=== PATIENT | female | born 1935 | race Caucasian/White ===

== ENCOUNTER → 2016-09-07 | Day surgery (SDC) | payer OTHER, MEDICARE ==
[2016-08-12 08:28] VITALS: Ht 160 cm; Wt 98.6 kg
[~2016-09-07] VITALS: Ht 160 cm; Wt 98.6 kg
[~2016-09-07] MED LIST: 500ML BSS 0.3ML EPI 1:1000PF IRRIG ONE; ACETAMINOPHEN 325 MG TAB PO PRN; ADVIN25/60 INH; ALLO100T PO; AMVISC PLUS 0.8ML SYRINGE INT OCU ONE; ATROPINE SULFATE 0.1 MG/ML 5ML SYR IV PRN; BETAXOLOL HCL 0.25% OP SUSP PER DROP CHARGE OPR SCH; BRIMONIDINE TART 0.2% OP SOLN PER DROP CHARGE ONE; BSS FLUSH ONE; CHOL100010 PO; CYAN10005 PO; DILT30TA PO; ENDOCOAT 0.85ML SYRINGE INT OCU ONE; EpINEphrine INJ 1MG/ML AMP 1 MG/ML AMP ONE; FENTANYL CITRATE INJ 50 MCG/1 ML 2 ML VIAL ONE; LACTATED RINGER'S 1000ML 500 ML IV SCH; LIDOCAINE 4% OP SOLN DROP CHARGE ONE; LIDOCAINE 4% OP SOLN DROP CHARGE OPR SCH; LIDOCAINE HCL 1% MPF 2 ML VIAL ONE; LSX20 PO; METO25TA56 PO; MIDAZOLAM HCL 1 MG/ML 2ML VIAL ONE; MIX: 4ML BSS 1ML EPI 1:1000 PF INSTIL ONE; MOXIFLOXACIN OPH SOLN PER DROP CHARGE ONE; OCUCOAT 1 ML SOLN IO ONE; POVIDONE-IODINE OP SOLN 30 ML BTL ONE; PROPARACAINE 0.5% OP SOLN PER DROP CHARGE OPR SCH; SIMV20TA2 PO; TOBRAMYCIN/DEXAMETHASONE OPH OINT PER APPLN CHARGE ONE; WARF2TAB8 PO
--- NOTE | 2016-09-07 06:39 | History & Physical Bridge - [place] ---
H&P Re-Evaluation Bridge Note: I have examined the patient, reviewed the History & Physical and in the interval since the performance of the History & Physical I have noted the following changes of clinical significance: No changes noted
[2016-09-07] MEDS: PHENYLEPHRINE HCL 2.5% OP SOLN PER DROP CHARGE OPR SCH ×2 (06:46→06:56)
[2016-09-07] MEDS: TROPICAMIDE 1% OP SOLN PER DROP CHARGE OPR SCH ×2 (06:47→06:56)
[2016-09-07] MEDS: CYCLOPENTOLATE HCL 1% OP SOLN PER DROP CHARGE OPR SCH ×2 (06:48→06:58)
[2016-09-07] MEDS: MOXIFLOXACIN OPH SOLN PER DROP CHARGE OPR SCH ×2 (06:49→07:00)
--- NOTE | 2016-09-07 07:57 | Discharge Instructions-SurgCtr ---
Discharge Instructions Visit Reason for Visit: Right Cataract Discharge Discharge Diagnosis / Problem: Lens implant right eye Discharge Goals Goal(s): Improve function Activity Recommendations Activity Limitations: resume your previous activity Lifting Limitations: no more than 10 pounds Exercise/Sports Limitations: gradually increase as tolerated May Resume Sexual Activity: when tolerated Shower/Bathe: tomorrow Driving or Machine Use: resume 1 day after discharge Anesthesia . Post Anesthesia Instructions: If you have had General Anesthesia or IV Sedation: * Do not drive today. * Resume driving when surgeon permits. * Do not make important decisions or sign legal documents today. * Call surgeon for: 1. Temperature elevations greater than 101 degrees F. 2. Uncontrollable pain. 3. Excessive bleeding. 4. Persistent nausea and vomiting. 5. Medication intolerance (nausea, vomiting or rash). * For nausea and vomiting use only clear liquids such as: tea, soda, bouillon until nausea subsides, then gradually increase diet as tolerated. * If you have any concerns or questions, call your surgeon's office. If physician is unavailable and it is an emergency, call 911 or go to the nearest emergency room. . Instructions / Follow-Up Instructions / Follow-Up ACTIVITY RECOMMENDATIONS: * Light activities. * Mild irritation and blurred vision are common for the first few days. * You may walk outside, read, watch television. * Redness around the white part of the eye is common. MEDICATIONS: Resume previous medications unless instructed otherwise by your surgeon. Start all eye drops at 1 pm today: * Eye drops (today and tomorrow): Prednisone - one drop in operative eye every 3 hours while awake Ofloxacin - one drop in operative eye every 3 hours while awake SPECIAL CARE INSTRUCTIONS: * Tape plastic shield over eye to sleep at night. Call your doctor at with any concerns or problems. FOLLOW UP VISIT: Follow-up with Dr Og at [place] office as scheduled. Diet Recommendations Home Diet: no limitations Procedures Procedures Performed: Cataract extraction with lens implant Pending Studies Studies pending at discharge: no Medical Emergencies . Who to Call and When: Medical Emergencies: If at any time you feel your situation is an emergency, please call 911 immediately. . Non-Emergent Contact Non-Emergency issues call your: [facility] Call Non-Emergent contact if: your pain is not controlled [phone] . . "Provider Documentation" section prepared by Asher Og.
--- NOTE | 2016-09-07 07:59 | [facility] Operative Report ---
Operative Report 1. PREOPERATIVE DIAGNOSIS: Senile nuclear cataract, right eye. 2. POSTOPERATIVE DIAGNOSIS: Senile nuclear cataract, right eye. 3. PROCEDURE: Phacoemulsification of right cataract with posterior chamber lens implant, type [employer], model MX60, power +15.5 diopters. ANESTHESIA: Local standby. SURGEON: Dr. Og. COMPLICATIONS: None. OPERATING TIME: 10 minutes. 4. OPERATION AND FINDINGS: DESCRIPTION OF PROCEDURE: The right pupil was dilated. The anesthetic was administered using a topical technique. The right eye was prepped and draped. A speculum was placed. A clear corneal incision was formed. The chamber was filled with Amvisc Plus and Endocoat. Epinephrine solution was used. A paracentesis was placed. A capsulorrhexis was performed. The nucleus was hydrodissected. The lens was removed with phacoemulsification. Time was 4.25 seconds. The aspiration unit was used to remove the cortex. The capsule was filled with Amvisc Plus. The lens implant was folded and placed into the capsule. The haptec was broken. The lens implant was removed and replaced. The incision was hydrated. The Amvisc was aspirated. The wound was secure. The chamber was deep. The pupil was round. TobraDex ointment and Vigamox solution were placed. The speculum was removed. The patient was returned to the Recovery Room in stable condition. I attest to the content of the Intraoperative Record and any orders documented therein. Any exceptions are noted below. The scribe's documentation has been prepared in my presence, under my direction and personally reviewed by me in its entirety. I confirm that the note above accurately reflects all work, treatment, procedures, and medical decision making performed by me. I personally scribed for Asher Og M.D. ([email or web address]) on 09/07/16 at 07:59. Electronically submitted by Jenny Cano ([facility]).
[2016-09-07 08:10] VITALS: TEMP 36.4
[2016-09-07 08:34] VITALS: BP 127/74; PULSE 63; O2SAT 94
--- NOTE | 2016-09-07 08:35 | Anesthesia Progress Nt - [facility] ---
Anesthesia Post Op Note Date & Time Sep 07, 2016 at 08:34 Vital Signs Pain Intensity: 0 Vital Signs Past 12 Hours Date Time Temp Pulse Resp B/P Pulse Ox O2 Delivery O2 Flow Rate FiO2 09/07/16 08:10 36.4 62 14 119/68 92 Room Air 09/07/16 06:31 36.7 79 16 138/82 95 Room Air Notes Mental Status: alert / awake / arousable, participated in evaluation Pt Amnestic to Procedure: Yes Nausea / Vomiting: adequately controlled Pain: adequately controlled Airway Patency, RR, SpO2: stable & adequate BP & HR: stable & adequate Hydration State: stable & adequate Anesthetic Complications: no major complications apparent
== END | disposition home or self-care (01) ==
LOC: X.SURG 06:25
PROVIDERS: ATTEND Specialist
DX: H25.11 Age-related nuclear cataract, right eye (principal); I10 Essential (primary) hypertension; I51.9 Heart disease, unspecified; J45.909 Unspecified asthma, uncomplicated

== ENCOUNTER 2021-03-20 19:39 | Inpatient (IN) ==
[2021-03-20] MEDS ORDERED: ONDANSETRON INJ 2 MG/ML 2 ML VIAL IV STA (19:51)
[2021-03-20] MEDS ORDERED: SODIUM CHLORIDE 0.9% 500 ML IV ONE (19:51)
[2021-03-20] MEDS ORDERED: MECLIZINE HCL 25 MG TAB PO STA (19:51)
[2021-03-20 20:17] LABS: Basophils # (auto) 0.02 K/uL (0-0.2); Basophils % (auto) 0.3 %; Eosinophils # (auto) 0.11 K/uL (0-0.5); Eosinophils % (auto) 1.5 %; Hematocrit (blood only) 50.3 % (37-47); Hemoglobin 17.1 g/dL (12.0-16.0); Immature Granulocytes # (auto) 0.01 K/uL (0.00-0.02); Immature Granulocytes % (auto) 0.1 %; Lymphocytes # (auto) 1.39 K/uL (1.2-3.4); Lymphocytes % (auto) 18.8 %; Mean Platelet Volume 10.3 fL (7.4-10.4); Monocytes # (auto) 0.86 K/uL (0.11-0.59); Monocytes % (auto) 11.6 %; Neutrophils # (auto) 5.01 K/uL (1.4-6.5); Neutrophils % (auto) 67.7 %; Platelet Count 180 K/uL (130-400); RDW Coefficient of Variation 14.8 % (11.5-14.5); Red Blood Count 5.35 M/uL (4.2-5.4)
--- NOTE | 2021-03-20 21:12 | XRay Report ---
XR chest 1V portable HISTORY: 85 years-old Female Stroke Like Symptoms acute strokelike symptoms COMPARISON: Chest radiograph 10/31/2008 TECHNIQUE: Portable AP view of the chest FINDINGS: Cardiac silhouette is enlarged. Calcified plaque of the thoracic aorta. No pneumothorax, pleural effu dario or overt pulmonary edema. Minimal retrocardiac opacities suggestive of atelectasis/scarring. Deg enerative changes of the shoulders and spine. IMPRESSION: Cardiomegaly without acute process. ACT 112: Negative or not required by law. The above report was generated using voice recognition software. It may contain grammatical, syntax o r spelling errors. Electronically signed by: Eliseo Ortega M.D. 03/20/2021 9:11 PM
[2021-03-20 21:42] LABS: INR 3.3 (0.9-1.1); Partial Thromboplastin Ratio 1.5; Partial Thromboplastin Time 39.3 Seconds (21.0-31.0); Prothrombin Time 30.5 Seconds (9.0-12.0)
[2021-03-20 21:56] LABS: Alanine Aminotransferase 20 U/L (12-78); Albumin Globulin Ratio 0.9 (0.9-2); Albumin Level 3.2 gm/dl (3.4-5.0); Alkaline Phosphatase 118 U/L (45-117); Aspartate Aminotransferase 22 U/L (15-37); BUN Creatinine Ratio 23.6 (10-20); Bilirubin,Total 0.6 mg/dl (0.2-1); Blood Urea Nitrogen 25 mg/dl (7-18); Calcium 8.5 mg/dl (8.5-10.1); Carbon Dioxide 24 mmol/L (21-32); Chloride 109 mmol/L (98-107); Creatinine Clr Calc Pharmacy 38.1 ml/min; Est GFR (African American) 55.3 ml/min; Est GFR (Non-African American) 47.7 ml/min; Globulin 3.6 gm/dl (2.5-4.0); Glucose 105 mg/dl (70-99); Magnesium 2.3 mg/dl (1.8-2.4); Potassium 4.2 mmol/L (3.5-5.1); Sodium 138 mmol/L (136-145); Total Protein 6.8 gm/dl (6.4-8.2); Troponin I < 0.015 ng/ml (0-0.045)
[2021-03-20] MEDS ORDERED: OPTIRAY 320 125ml IV ONE (21:58)
--- NOTE | 2021-03-20 22:24 | CT Scan Report ---
CT head/brain wo con CLINICAL HISTORY: 85 years-old Female with Stroke Like Symptoms. Acute strokelike symptoms TECHNIQUE: Multiple axial CT images of the head were obtained without contrast. A dose lowering tech nique was utilized adhering to the principles of ALARA. COMPARISON: CTA head and neck of same day FINDINGS: No acute intracranial hemorrhage, midline shift, intracranial mass, hydrocephalus, territorial ischem ia or abnormal extra-axial collection. Mild involutional changes. Cerebral vascular calcifications. The calvarium is intact. Right-sided lens repair. The paranasal sinuses, mastoid air cells, and middl e ear cavities are clear. IMPRESSION: No acute intracranial abnormality. ACT 112: Negative or not required by law. The above report was generated using voice recognition software. It may contain grammatical, syntax o r spelling errors. Electronically signed by: Eliseo Ortega M.D. 03/20/2021 10:23 PM
--- NOTE | 2021-03-20 22:33 | CT Scan Report ---
CT angio neck with con, CT angio head w con CLINICAL HISTORY: 85 years-old Female with Stroke Like Symptoms. Acute strokelike symptoms COMPARISON STUDY: CT head of same day TECHNIQUE: Following the IV administration of 119 mL of Optiray, CT angiogram of the head and neck wa s performed from the aortic arch to the skull apex. Images are reviewed in the axial, sagittal, and c oronal planes. 3-D MIPS images are created and assessed. IV contrast was administered without complic ation. All measurements were calculated based on NASCET criteria. A dose lowering technique was util ized adhering to the principles of ALARA. CT DOSE: 1008.22 mGy.cm FINDINGS: The opacified pulmonary arterial tree is unremarkable. Mild atherosclerosis of the proximal great ves sels. Patency of the innominate and imaged subclavian arteries. The common carotid arteries are widel y patent. The internal carotid arteries are also patent. Mild calcified plaque of the cavernous and s upraclinoid segments. The middle and anterior cerebral arteries are patent. Dominant right vertebral artery. Developmentally diminutive left vertebral artery terminates into the left PICA. Diminutive an d patent basilar artery. origin of the posterior cerebral arteries which are patent. The cerebr al venous sinuses appear patent. No abnormal intracranial enhancement. The lung apices are clear. No pneumothorax. Degenerative changes of the cervical spine. IMPRESSION:Unremarkable CTA of the head and neck. ACT 112: Negative or not required by law. The above report was generated using voice recognition software. It may contain grammatical, syntax o r spelling errors. Electronically signed by: Eliseo Ortega M.D. 03/20/2021 10:32 PM
[2021-03-20 22:39] LABS: Appearance Urine Clear (Clear); Bilirubin Urine Negative (Negative); Blood Urine Negative (Negative); Color Urine Yellow; Glucose Urine UA Negative (Negative); Ketones Urine Negative (Negative); Leukocyte Esterase Urine Negative (Negative); Nitrite Urine Negative (Negative); Protein Urine Negative (Negative); Specific Gravity Urine 1.024 (1.000-1.030); Urobilinogen Urine Negative (Negative)
[2021-03-20] MEDS ORDERED: dilTIAZem HCL 30 MG TAB PO ONE (23:35)
--- NOTE | 2021-03-20 23:51 | History & Physical Report ---
Date of Service March 20, 2021 Assessment & Plan (1) Dizziness: Plan: 85 yo admitted for dizziness/ambulatory dysfunction. 1. Dizziness - most likely BPPV. Did positively respond to having Fly's Maneuver performed in ER. Said it brought her to ~50% normal, but still felt somewhat unsteady and didn't "trust" herself to not fall or be dizzy when standing. She lives alone and didn't feel comfortable going home at nighttime. - meclizine somewhat helped with dizziness - received 500cc NS in ER - continue meclizine PRN, zofran added for nausea - EKG to monitor QTc - CT head/CTA head/neck negative for stroke/edema/carotid stenosis causing symptoms. given position dependent symptoms, unlikely to be stroke etiology. Chronic problems: Afib - cont metoprolol, diltiazem, warfarin CAD - cont statin Gout - cont allopurinol DVT ppx: on warfarin FEN/GI: heart healthy diet Bowel regimen: miralax prn Code Status: full code Dispo: med/surg (2) Afib: (3) HTN (hypertension): (4) CAD (coronary artery disease): (5) Gout: History of Present Illness Chief Complaint: Dizziness Primary Care Provider: Eric Rosa MD 85 yo F with hx afib and htn in ER for dizziness for the past few days. States that she's had a handful of episodes while standing, but this morning woke up being dizzy and was unable to lift herself retirement up to sitting without being dizzy. States that the room is spinning around her. No nausea, but some generalized discomfort. does state that she hasn't been drinking or eating as much as she should the past few days with it being so hot. Hasn't had her night dose of diltiazem tonight, otherwise has taken all of her medications. No numbness/tingling. No weakness. No speech changes or slurring. No chest pain/SOB. Allergies Allergy/AdvReac Type Severity Reaction Status Date / Time Sulfa (Sulfonamide Allergy Intermediate RASH/GI Verified 03/20/21 20:38 Antibiotics) UPSET mercury (elemental) Allergy Mild RASH Verified 03/20/21 20:38 Penicillins Allergy Mild RASH Verified 03/20/21 20:38 hydromorphone AdvReac Intermediate ACTED Verified 03/20/21 20:38 STRANGE NSAIDS (Non-Steroidal AdvReac Intermediate INTERNAL Verified 03/20/21 20:38 Anti-Inflamma BLEEDING Home Medications Medication Instructions Recorded Confirmed Type albuterol sulfate 90 mcg/actuation 2 puff INHALATION QID PRN 03/20/21 03/20/21 History aerosol inhaler allopurinol 100 mg tablet 100 mg PO DAILY 03/20/21 03/20/21 History cholecalciferol (vitamin D3) 25 25 mcg PO DAILY 03/20/21 03/20/21 History mcg (1,000 unit) capsule (Vitamin D3) cyanocobalamin (vitamin B-12) 1,000 mcg PO DAILY 03/20/21 03/20/21 History 1,000 mcg tablet (Vitamin B-12) diltiazem HCl 30 mg tablet 30 mg PO QID 03/20/21 03/20/21 History metoprolol tartrate 25 mg tablet 25 mg PO BID 03/20/21 03/20/21 History simvastatin 20 mg tablet 20 mg PO QPM 03/20/21 03/20/21 History warfarin 2 mg tablet See Rx Instructions .ROUTE .COMPLEX 03/20/21 03/20/21 Hist ory Past Med/Surg History Medical History Afib CAD (coronary artery disease) Gout HTN (hypertension) Social History (System 08/12/19 @ 11:50 by Eileen Rosen) Smoking Status: Never smoker Hx Alcohol Use: No Hx Substance Use: No Preferred Language: Chinese Communication Ability: Effective Field Scout Required: No Beliefs That Will Affect Care: None Current Living Situation: Alone Other Information That Helps Us Care for You: No Feels Safe at Home: Yes Safety Concerns: Feels Safe At This Time Assistive Devices: Cane and Glasses Review of Systems Review of Systems: All systems reviewed & are unremarkable except as noted in HPI & below Physical Exam Physical Exam: Constitutional:elderly female in no apparent distress,laying comfortably in bed. Eyes: EOMI, pupils equal and reactive bilaterally, no scleral icterus Cardiac: irregularly irregular, normal rate, no murmurs, gallops or rubs. Normal S1, S2 Pulm: CTA BL, no wheezes, rhonchi, crackles or rubs, moving air well throughout both lungs Abd: soft, nontender, nondistended, normal bowel sounds, no rebound or guarding Extremities: 2+ peripheral pulses, no edema Neuro: no focal deficits, moving all 4 limbs, A&Ox3 Results & Data Results & Data ([facility]) Vital Signs (Past 12 Hours) Vital Signs Temp Pulse Resp BP Pulse Ox 03/20/21 23:00 80 17 142/90 H 94 03/20/21 22:30 80 16 157/83 H 94 03/20/21 22:00 86 18 132/78 94 03/20/21 21:30 81 17 137/81 98 03/20/21 21:00 78 16 135/88 98 03/20/21 20:30 78 22 151/95 H 98 03/20/21 20:00 90 18 152/109 H 98 03/20/21 19:51 36.7 C 89 16 171/112 H 94 Laboratory Results Laboratory Results WBC 7.40 K/uL (4.8-10.8) 03/20/21 20:05 RBC 5.35 M/uL (4.2-5.4) 03/20/21 20:05 Hgb 17.1 g/dL (12.0-16.0) H 03/20/21 20:05 Hct 50.3 % (37-47) H 03/20/21 20:05 MCV 94.0 fL (80-100) 03/20/21 20:05 MCH 32.0 pg (25-34) 03/20/21 20:05 MCHC 34.0 g/dL (32-36) 03/20/21 20:05 RDW Std Deviation 51.0 fL (36.4-46.3) H 03/20/21 20:05 RDW Coeff of [place] 14.8 % (11.5-14.5) H 03/20/21 20:05 Plt Count 180 K/uL (130-400) 03/20/21 20:05 MPV 10.3 fL (7.4-10.4) 03/20/21 20:05 Immature Gran % (Auto) 0.1 % 03/20/21 20:05 Neut % (Auto) 67.7 % 03/20/21 20:05 Lymph % (Auto) 18.8 % 03/20/21 20:05 [place] % (Auto) 11.6 % 03/20/21 20:05 Eos % (Auto) 1.5 % 03/20/21 20:05 Baso % (Auto) 0.3 % 03/20/21 20:05 Neut # (Auto) 5.01 K/uL (1.4-6.5) 03/20/21 20:05 Lymph # (Auto) 1.39 K/uL (1.2-3.4) 03/20/21 20:05 [place] # (Auto) 0.86 K/uL (0.11-0.59) H 03/20/21 20:05 Eos # (Auto) 0.11 K/uL (0-0.5) 03/20/21 20:05 Baso # (Auto) 0.02 K/uL (0-0.2) 03/20/21 20:05 Immature Gran # (Auto) 0.01 K/uL (0.00-0.02) 03/20/21 20:05 PT 30.5 Seconds (9.0-12.0) H 03/20/21 21:20 INR 3.3 (0.9-1.1) H 03/20/21 21:20 APTT 39.3 Seconds (21.0-31.0) H 03/20/21 21:20 PTT Ratio 1.5 03/20/21 21:20 Sodium 138 mmol/L (136-145) 03/20/21 21:20 Potassium 4.2 mmol/L (3.5-5.1) 03/20/21 21:20 Chloride 109 mmol/L (98-107) H 03/20/21 21:20 Carbon Dioxide 24 mmol/L (21-32) 03/20/21 21:20 Anion Gap 6.0 (3-11) 03/20/21 21:20 BUN 25 mg/dl (7-18) H 03/20/21 21:20 Creatinine 1.05 mg/dl (0.6-1.2) 03/20/21 21:20 Est Cr Clr Drug Dosing 38.1 ml/min 03/20/21 21:20 Est GFR ( Amer) 55.3 ml/min 03/20/21 21:20 Est GFR (Non-Af Amer) 47.7 ml/min 03/20/21 21:20 BUN/Creatinine Ratio 23.6 (10-20) H 03/20/21 21:20 Glucose 105 mg/dl (70-99) H 03/20/21 21:20 Calcium 8.5 mg/dl (8.5-10.1) 03/20/21 21:20 Magnesium 2.3 mg/dl (1.8-2.4) 03/20/21 21:20 Total Bilirubin 0.6 mg/dl (0.2-1) 03/20/21 21:20 AST 22 U/L (15-37) 03/20/21 21:20 ALT 20 U/L (12-78) 03/20/21 21:20 Alkaline Phosphatase 118 U/L (45-117) H 03/20/21 21:20 Troponin I < 0.015 ng/ml (0-0.045) 03/20/21 21:20 Total Protein 6.8 gm/dl (6.4-8.2) 03/20/21 21:20 Albumin 3.2 gm/dl (3.4-5.0) L 03/20/21 21:20 Globulin 3.6 gm/dl (2.5-4.0) 03/20/21 21:20 Albumin/Globulin Ratio 0.9 (0.9-2) 03/20/21 21:20 Specimen Hemolysis 03/20/21 21:20 Urine Color Yellow 03/20/21 22:25 Urine Appearance Clear (Clear) 03/20/21 22:25 Urine pH 5.0 (4.5-7.5) 03/20/21 22:25 Ur Specific [place] 1.024 (1.000-1.030) 03/20/21 22:25 Urine Protein Negative (Negative) 03/20/21 22:25 Urine Glucose (UA) Negative (Negative) 03/20/21 22:25 Urine Ketones Negative (Negative) 03/20/21 22:25 Urine Blood Negative (Negative) 03/20/21 22:25 Urine Nitrite Negative (Negative) 03/20/21 22:25 Urine Bilirubin Negative (Negative) 03/20/21 22:25 Urine Urobilinogen Negative (Negative) 03/20/21 22:25 Ur Leukocyte Esterase Negative (Negative) 03/20/21 22:25 Impressions Chest X-Ray 03/20/21 19:51 XR chest 1V portable HISTORY: 85 years-old Female Stroke Like Symptoms acute strokelike symptoms COMPARISON: Chest radiograph 10/31/2008 TECHNIQUE: Portable AP view of the chest FINDINGS: Cardiac silhouette is enlarged. Calcified plaque of the thoracic aorta. No pneumothorax, pleural effusion or overt pulmonary edema. Minimal retrocardiac opacities suggestive of atelectasis/scarring. Degenerative changes of the shoulders and spine. IMPRESSION: Cardiomegaly without acute process. ACT 112: Negative or not required by law. The above report was generated using voice recognition software. It may contain grammatical, syntax or spelling errors. Electronically signed by: Eliseo Ortega M.D. 03/20/2021 9:[address] 03/20/21 19:51 CT head/brain wo con CLINICAL HISTORY: 85 years-old Female with Stroke Like Symptoms. Acute strokelike symptoms TECHNIQUE: Multiple axial CT images of the head were obtained without contrast. A dose lowering technique was utilized adhering to the principles of ALARA. COMPARISON: CTA head and neck of same day FINDINGS: No acute intracranial hemorrhage, midline shift, intracranial mass, hydrocephalus, territorial ischemia or abnormal extra-axial collection. Mild involutional changes. Cerebral vascular calcifications. The calvarium is intact. Right-sided lens repair. The paranasal sinuses, mastoid air cells, and middle ear cavities are clear. IMPRESSION: No acute intracranial abnormality. ACT 112: Negative or not required by law. The above report was generated using voice recognition software. It may contain grammatical, syntax or spelling errors. Electronically signed by: Eliseo Ortega M.D. 03/20/2021 10:23 PM Head CTA 03/20/21 19:51 CT angio neck with con, CT angio head w con CLINICAL HISTORY: 85 years-old Female with Stroke Like Symptoms. Acute strokelike symptoms COMPARISON STUDY: CT head of same day TECHNIQUE: Following the IV administration of 119 mL of Optiray, CT angiogram of the head and neck was performed from the aortic arch to the skull apex. Images are reviewed in the axial, sagittal, and coronal planes. 3-D MIPS images are created and assessed. IV contrast was administered without complication. All measurements were calculated based on NASCET criteria. A dose lowering technique was utilized adhering to the principles of ALARA. CT DOSE: 1008.22 mGy.cm FINDINGS: The opacified pulmonary arterial tree is unremarkable. Mild atherosclerosis of the proximal great vessels. Patency of the innominate and imaged subclavian arteries. The common carotid arteries are widely patent. The internal carotid arteries are also patent. Mild calcified plaque of the cavernous and supraclinoid segments. The middle and anterior cerebral arteries are patent. Dominant right vertebral artery. Developmentally diminutive left vertebral artery terminates into the left PICA. Diminutive and patent basilar artery. origin of the posterior cerebral arteries which are patent. The cerebral venous sinuses appear patent. No abnormal intracranial enhancement. The lung apices are clear. No pneumothorax. Degenerative changes of the cervical spine. IMPRESSION:Unremarkable CTA of the head and neck. ACT 112: Negative or not required by law. The above report was generated using voice recognition software. It may contain grammatical, syntax or spelling errors. Electronically signed by: Eliseo Ortega M.D. 03/20/2021 10:32 PM Neck CTA 03/20/21 19:51 CT angio neck with con, CT angio head w con CLINICAL HISTORY: 85 years-old Female with Stroke Like Symptoms. Acute strokelike symptoms COMPARISON STUDY: CT head of same day TECHNIQUE: Following the IV administration of 119 mL of Optiray, CT angiogram of the head and neck was performed from the aortic arch to the skull apex. Images are reviewed in the axial, sagittal, and coronal planes. 3-D MIPS images are created and assessed. IV contrast was administered without complication. All measurements were calculated based on NASCET criteria. A dose lowering technique was utilized adhering to the principles of ALARA. CT DOSE: 1008.22 mGy.cm FINDINGS: The opacified pulmonary arterial tree is unremarkable. Mild atherosclerosis of the proximal great vessels. Patency of the innominate and imaged subclavian arteries. The common carotid arteries are widely patent. The internal carotid arteries are also patent. Mild calcified plaque of the cavernous and supraclinoid segments. The middle and anterior cerebral arteries are patent. Dominant right vertebral artery. Developmentally diminutive left vertebral artery terminates into the left PICA. Diminutive and patent basilar artery. origin of the posterior cerebral arteries which are patent. The cerebral venous sinuses appear patent. No abnormal intracranial enhancement. The lung apices are clear. No pneumothorax. Degenerative changes of the cervical spine. IMPRESSION:Unremarkable CTA of the head and neck. ACT 112: Negative or not required by law. The above report was generated using voice recognition software. It may contain grammatical, syntax or spelling errors. Electronically signed by: Eliseo Ortega M.D. 03/20/2021 10:32 PM Supervising Physician Co-Signing Physician Notes Patient seen and examined, chart reviewed, case discussed with Dr. Toro and I agree with her assessment and plan as above. In brief, patient presenting with dizziness/vertigo, worse with positional changes. Got some relief with Fly maneuver performed by Dr. Toro in the ER. Patient lives alone Exam unremarkable Afebrile, HD stable, neurological exam is unremarkable Assessment/Plan -Suspect BPPV. Patient prefers not to go home with her symptoms as they are because she lives alone and is concerned about falling -IVF and Meclizine -Remainder of plan as above Resident Activity Tracking Resident Involvement: Resident Care Provided Care Provided: Adult Hospital Medicine
--- NOTE | 2021-03-21 01:34 | Emergency Department Note ---
Impression & Plan Dizziness, Afib, HTN (hypertension) ED Provider Note NAME: MONTANA MELLO AGE: 85 SEX: F : 1935 ARRIVES VIA: Ambulance INFORMANT: Patient, ED PROVIDER(S): Eulogio Park MD CHIEF COMPLAINT: dizziness HPI: Records review reveals this patient was seen by pulmonology in June 2019 and had PFT testing done. this is an 85-year-old female who presents emergency department complaining of dizziness. The patient reports she woke up from a nap this afternoon and is severely dizzy. She reports the dizziness is made worse with standing or moving her head. She reports rest seems to make the dizziness somewhat better. She has not taken anything for the dizziness. Patient has never had dizziness like this previously. ROS: See above HPI for pertinent positives & negatives. A total of 10 systems reviewed and were otherwise negative. PAST MEDICAL HISTORY: See Below PAST SURGICAL HISTORY: See Below FAMILY HISTORY: See Below SOCIAL HISTORY: See Below HOME MEDICATIONS: See Below ALLERGIES: See Below VITALS: See Below PHYSICAL EXAMINATION: VITAL SIGNS - Vital signs and nursing notes were reviewed. GENERAL - 85-year-old female appearing stated age who is in no acute distress. Communicates well with provider and answers questions appropriately. SKIN - Without rashes. HEAD - NC/AT. EYES - PERRL with EOMI bilaterally. Sclera anicteric. Palpebral conjunctiva pink and moist with no injection noted. EARS - No deformities of external structures noted on gross examination bilaterally. NOSE - Midline and without cyanosis. No epistaxis or purulent drainage noted. Septum midline without deviation or septal hematoma noted. MOUTH/OROPHARYNX - Without perioral cyanosis. Buccal mucosa pink and moist and without leukoplakia. Tongue midline with equal elevation of palate bilaterally. No tonsillar hypertrophy, erythema, or exudates noted. NECK - Neck with FROM. Supple to palpation. LUNGS - Chest wall symmetric without accessory muscle use, intercostals retrac tions, or central cyanosis. Normal vesicular breath sounds CTA B/L. No wheezes, rales, or rhonchi appreciated. CARDIAC - RRR with S1/S2. No murmur, rubs, or gallops appreciated. ABDOMEN - Abdominal contour without pulsations or visible masses. BS normoactive all four quadrants. No tenderness, palpable masses, hepatosplenomegaly, or ascites noted. EXTREMITIES - No clubbing or peripheral cyanosis. No pretibial edema present. +3/5 radial, posterior tibial, and dorsalis pedis pulses palpated throughout. +5/5 strength noted in UE/LE bilaterally. NEUROLOGIC - Cranial nerves II through XII grossly intact. Sensory intact to light touch throughout. Patellar reflexes +2/4. PSYCH - A&Ox3 and cooperates fully with examiner. Pt is very pleasant and interacts well with examiner. MEDICAL DECISION MAKING: Patient was seen and evaluated as above in room B3. Review was performed of nursing notes and vital signs. I did review pertinent previous visits and patient history. After obtaining a thorough history and physical examination the above work up was performed. This is an 85-year-old female who presents emergency department complaining of severe dizziness anytime she moves her head. CT as well as CTA of the head and neck was interpreted by me does not show any evidence of stenosis or CVA. EKG does show a new infarct however the patient's troponin is not elevated. She does not have an elevation in her white blood cell count. The patient was given meclizine as well as a normal saline bolus here in the emergency department. She is on Coumadin and her INR is 3.3 I am concerned that the patient may fall and resulted in intracranial hemorrhage. She was ambulated by nursing staff and felt to do very poorly. Based on this I did discuss the case with the hospitalist staff who did agree to admit the patient. Patient and family are in agreement with treatment plan. An order was placed for continuous cardiac monitoring. The monitor shows a rate of 65 with Normal SInus rhythm. The patient was evaluated during a period of high volume and high acuity during the global COVID-19 pandemic, and that diagnosis was suspected/considered upon their initial presentation. Their evaluation, treatment and testing was consistent with current guidelines for patients who present with complaints or symptoms that may be related to COVID-19. Patient was seen while provider was wearing PPE. Triage Nursing notes reviewed. Prior medical records reviewed Vital Signs: reviewed and remarkable for no significant abnormalities Differential diagnosis: Infection, dehydration, metabolic abnormality, hypo/hyperglycemia, electrolyte disturbance, anemia, hypoxia, cardiac sources, intracerebral event, toxicologic, neurologic, as well as other pathologies. 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 Imaging studies: See below Consultation(s): Internal Medicine Past Med/Surg History Medical History (Updated 03/21/21 @ 01:38 by Eulogio Park MD) Afib CAD (coronary artery disease) Gout HTN (hypertension) Social History (System 08/12/19 @ 11:50 by Eileen Rosen) Smoking Status: Never smoker Preferred Language: Turkmen Feels Safe at Home: Yes Allergies Allergies Allergy/AdvReac Type Severity Reaction Status Date / Time Sulfa (Sulfonamide Allergy Intermediate RASH/GI Verified 03/20/21 20:38 Antibiotics) UPSET mercury (elemental) Allergy Mild RASH Verified 03/20/21 20:38 Penicillins Allergy Mild RASH Verified 03/20/21 20:38 hydromorphone AdvReac Intermediate ACTED Verified 03/20/21 20:38 STRANGE NSAIDS (Non-Steroidal AdvReac Intermediate INTERNAL Verified 03/20/21 20:38 Anti-Inflamma BLEEDING Home Meds Home Medications Medication Instructions Recorded Confirmed albuterol sulfate 90 mcg/actuation 2 puff INHALATION QID PRN 03/20/21 03/20/21 aerosol inhaler allopurinol 100 mg tablet 100 mg PO DAILY 03/20/21 03/20/21 cholecalciferol (vitamin D3) 25 25 mcg PO DAILY 03/20/21 03/20/21 mcg (1,000 unit) capsule (Vitamin D3) cyanocobalamin (vitamin B-12) 1,000 mcg PO DAILY 03/20/21 03/20/21 1,000 mcg tablet (Vitamin B-12) diltiazem HCl 30 mg tablet 30 mg PO QID 03/20/21 03/20/21 metoprolol tartrate 25 mg tablet 25 mg PO BID 03/20/21 03/20/21 simvastatin 20 mg tablet 20 mg PO QPM 03/20/21 03/20/21 warfarin 2 mg tablet See Rx Instructions .ROUTE .COMPLEX 03/20/21 03/20/21 Results & Data (ED) Vital Signs Vital Signs - 24 hr 03/20/21 19:51 03/20/21 20:00 03/20/21 20:30 Temperature 36.7 C Temperature Source Oral Pulse Rate 89 90 78 Pulse Rate from SpO2 Sensor Pulse Rhythm Regular Pulse Strength Normal Respiratory Rate 16 18 22 Respiratory Effort / Characteristics Non-Labored Spontaneous Respiratory Depth Normal Respiratory Pattern Regular Blood Pressure 171/112 H 152/109 H 151/95 H Blood Pressure Mean 131 123 113 Blood Pressure Position Sitting Pulse Oximetry 94 98 98 Oxygen Delivery Method Room Air Sepsis Recent Fever Within 48 Hours No Sepsis New/Unexplained Change in Mental Status N/A Sepsis Action Taken by Nursing No Action Required 03/20/21 21:00 03/20/21 21:30 03/20/21 22:00 Temperature Temperature Source Pulse Rate 78 81 86 Pulse Rate from SpO2 Sensor Pulse Rhythm Pulse Strength Respiratory Rate 16 17 18 Respiratory Effort / Characteristics Respiratory Depth Respiratory Pattern Blood Pressure 135/88 137/81 132/78 Blood Pressure Mean 103 99 96 Blood Pressure Position Pulse Oximetry 98 98 94 Oxygen Delivery Method Sepsis Recent Fever Within 48 Hours Sepsis New/Unexplained Change in Mental Status Sepsis Action Taken by Nursing 03/20/21 22:30 03/20/21 23:00 03/20/21 23:30 Temperature Temperature Source Pulse Rate 80 80 83 Pulse Rate from SpO2 Sensor 78 78 Pulse Rhythm Pulse Strength Respiratory Rate 16 17 17 Respiratory Effort / Characteristics Respiratory Depth Respiratory Pattern Blood Pressure 157/83 H 142/90 H 153/107 H Blood Pressure Mean 107 107 122 Blood Pressure Position Pulse Oximetry 94 94 Oxygen Delivery Method Sepsis Recent Fever Within 48 Hours Sepsis New/Unexplained Change in Mental Status Sepsis Action Taken by Nursing 03/21/21 00:00 03/21/21 00:30 Temperature Temperature Source Pulse Rate 71 65 Pulse Rate from SpO2 Sensor Pulse Rhythm Pulse Strength Respiratory Rate 17 18 Respiratory Effort / Characteristics Respiratory Depth Respiratory Pattern Blood Pressure 140/93 155/81 H Blood Pressure Mean 108 105 Blood Pressure Position Pulse Oximetry Oxygen Delivery Method Sepsis Recent Fever Within 48 Hours Sepsis New/Unexplained Change in Mental Status Sepsis Action Taken by [facility] Medications Current Medication List: was personally reviewed by me Laboratory Data Attestation: I reviewed the patient's lab results. Result diagrams: 03/20/21 20:05 03/20/21 21:20 Lab Results 03/20/21 03/20/21 03/20/21 Range/Units 20:05 20:05 20:05 WBC 7.40 (4.8-10.8) K/uL RBC 5.35 (4.2-5.4) M/uL Hgb 17.1 H (12.0-16.0) g/dL Hct 50.3 H (37-47) % MCV 94.0 (80-100) fL MCH 32.0 (25-34) pg MCHC 34.0 (32-36) g/dL RDW Std Deviation 51.0 H (36.4-46.3) fL RDW Coeff of Andrews 14.8 H (11.5-14.5) % Plt Count 180 (130-400) K/uL MPV 10.3 (7.4-10.4) fL Immature Gran % (Auto) 0.1 % Neut % (Auto) 67.7 % Lymph % (Auto) 18.8 % [place] % (Auto) 11.6 % Eos % (Auto) 1.5 % Baso % (Auto) 0.3 % Neut # (Auto) 5.01 (1.4-6.5) K/uL Lymph # (Auto) 1.39 (1.2-3.4) K/uL [place] # (Auto) 0.86 H (0.11-0.59) K/uL Eos # (Auto) 0.11 (0-0.5) K/uL Baso # (Auto) 0.02 (0-0.2) K/uL Immature Gran # (Auto) 0.01 (0.00-0.02) K/uL PT Cancelled INR Cancelled APTT Cancelled PTT Ratio Cancelled Sodium Cancelled Potassium Cancelled Chloride Cancelled Carbon Dioxide Cancelled Anion Gap Cancelled BUN Cancelled Creatinine Cancelled Est Cr Clr Drug Dosing Cancelled Est GFR ( Amer) Cancelled Est GFR (Non-Af Amer) Cancelled BUN/Creatinine Ratio Cancelled Glucose Cancelled Calcium Cancelled Magnesium Cancelled Total Bilirubin Cancelled AST Cancelled ALT Cancelled Alkaline Phosphatase Cancelled Troponin I Cancelled Total Protein Cancelled Albumin Cancelled Globulin Cancelled Albumin/Globulin Ratio Cancelled Specimen Hemolysis Urine Color Urine Appearance (Clear) Urine pH (4.5-7.5) Ur Specific [place] (1.000-1.030) Urine Protein (Negative) Urine Glucose (UA) (Negative) Urine Ketones (Negative) Urine Blood (Negative) Urine Nitrite (Negative) Urine Bilirubin (Negative) Urine Urobilinogen (Negative) Ur Leukocyte Esterase (Negative) COVID-19 Eval Order 03/20/21 03/20/21 03/20/21 Range/Units 20:34 21:20 21:20 WBC (4.8-10.8) K/uL RBC (4.2-5.4) M/uL Hgb (12.0-16.0) g/dL Hct (37-47) % MCV (80-100) fL MCH (25-34) pg MCHC (32-36) g/dL RDW Std Deviation (36.4-46.3) fL RDW Coeff of Andrews (11.5-14.5) % Plt Count (130-400) K/uL MPV (7.4-10.4) fL Immature Gran % (Auto) % Neut % (Auto) % Lymph % (Auto) % [place] % (Auto) % Eos % (Auto) % Baso % (Auto) % Neut # (Auto) (1.4-6.5) K/uL Lymph # (Auto) (1.2-3.4) K/uL [place] # (Auto) (0.11-0.59) K/uL Eos # (Auto) (0-0.5) K/uL Baso # (Auto) (0-0.2) K/uL Immature Gran # (Auto) (0.00-0.02) K/uL PT 30.5 H INR 3.3 H APTT 39.3 H PTT Ratio 1.5 Sodium 138 Potassium 4.2 Chloride 109 H Carbon Dioxide 24 Anion Gap 6.0 BUN 25 H Creatinine 1.05 Est Cr Clr Drug Dosing 38.1 Est GFR ( Amer) 55.3 Est GFR (Non-Af Amer) 47.7 BUN/Creatinine Ratio 23.6 H Glucose 105 H Calcium 8.5 Magnesium 2.3 Total Bilirubin 0.6 AST 22 ALT 20 Alkaline Phosphatase 118 H Troponin I < 0.015 Total Protein 6.8 Albumin 3.2 L Globulin 3.6 Albumin/Globulin Ratio 0.9 Specimen Hemolysis Urine Color Urine Appearance (Clear) Urine pH (4.5-7.5) Ur Specific [place] (1.000-1.030) Urine Protein (Negative) Urine Glucose (UA) (Negative) Urine Ketones (Negative) Urine Blood (Negative) Urine Nitrite (Negative) Urine Bilirubin (Negative) Urine Urobilinogen (Negative) Ur Leukocyte Esterase (Negative) COVID-19 Eval Order Covid19 at [facility] 03/20/21 Range/Units 22:25 WBC (4.8-10.8) K/uL RBC (4.2-5.4) M/uL Hgb (12.0-16.0) g/dL Hct (37-47) % MCV (80-100) fL MCH (25-34) pg MCHC (32-36) g/dL RDW Std Deviation (36.4-46.3) fL RDW Coeff of [place] (11.5-14.5) % Plt Count (130-400) K/uL MPV (7.4-10.4) fL Immature Gran % (Auto) % Neut % (Auto) % Lymph % (Auto) % [place] % (Auto) % Eos % (Auto) % Baso % (Auto) % Neut # (Auto) (1.4-6.5) K/uL Lymph # (Auto) (1.2-3.4) K/uL [place] # (Auto) (0.11-0.59) K/uL Eos # (Auto) (0-0.5) K/uL Baso # (Auto) (0-0.2) K/uL Immature Gran # (Auto) (0.00-0.02) K/uL PT INR APTT PTT Ratio Sodium Potassium Chloride Carbon Dioxide Anion Gap BUN Creatinine Est Cr Clr Drug Dosing Est GFR ( Amer) Est GFR (Non-Af Amer) BUN/Creatinine Ratio Glucose Calcium Magnesium Total Bilirubin AST ALT Alkaline Phosphatase Troponin I Total Protein Albumin Globulin Albumin/Globulin Ratio Specimen Hemolysis Urine Color Yellow Urine Appearance Clear (Clear) Urine pH 5.0 (4.5-7.5) Ur Specific [place] 1.024 (1.000-1.030) Urine Protein Negative (Negative) Urine Glucose (UA) Negative (Negative) Urine Ketones Negative (Negative) Urine Blood Negative (Negative) Urine Nitrite Negative (Negative) Urine Bilirubin Negative (Negative) Urine Urobilinogen Negative (Negative) Ur Leukocyte Esterase Negative (Negative) COVID-19 Eval Order Administered Medications Discontinued Medications Diltiazem HCl (Diltiazem Hcl 30 Mg Tab) 30 mg PO NOW ONE Stop: 03/20/21 23:36 Last Admin: 03/20/21 23:45 Dose: 30 mg Documented by: [id number] Sodium Chloride (Nss) 500 mls @ 999 mls/hr IV .Q31M ONE Stop: 03/20/21 20:21 Last Infusion: 03/20/21 20:48 Dose: 0 mls/hr Documented by: [id number] Admin: 03/20/21 20:11 Dose: 999 mls/hr Documented by: [id number] Ioversol (Optiray 320 125ml) 119 ml IV ONCE ONE Stop: 03/20/21 21:59 Last Admin: 03/20/21 21:58 Dose: 1 ml Documented by: [id number] Meclizine HCl (Meclizine Hcl 25 Mg Tab) 25 mg PO NOW STA Stop: 03/20/21 19:52 Last Admin: 03/20/21 20:10 Dose: 25 mg Documented by: [id number] Ondansetron HCl (Ondansetron Inj 2 Mg/Ml 2 Ml Vial) 4 mg IV NOW STA Stop: 03/20/21 19:52 Last Admin: 03/20/21 20:11 Dose: 4 mg Documented by: [id number] Imaging Data Radiologist's Impression: Chest X-Ray 03/20/21 19:51 XR chest 1V portable HISTORY: 85 years-old Female Stroke Like Symptoms acute strokelike symptoms COMPARISON: Chest radiograph 10/31/2008 TECHNIQUE: Portable AP view of the chest FINDINGS: Cardiac silhouette is enlarged. Calcified plaque of the thoracic aorta. No pneumothorax, pleural effusion or overt pulmonary edema. Minimal retrocardiac opacities suggestive of atelectasis/scarring. Degenerative changes of the shoulders and spine. IMPRESSION: Cardiomegaly without acute process. ACT 112: Negative or not required by law. The above report was generated using voice recognition software. It may contain grammatical, syntax or spelling errors. Electronically signed by: Eliseo Ortega M.D. 03/20/2021 9:[address] 03/20/21 19:51 CT head/brain wo con CLINICAL HISTORY: 85 years-old Female with Stroke Like Symptoms. Acute strokelike symptoms TECHNIQUE: Multiple axial CT images of the head were obtained without contrast. A dose lowering technique was utilized adhering to the principles of ALARA. COMPARISON: CTA head and neck of same day FINDINGS: No acute intracranial hemorrhage, midline shift, intracranial mass, hydrocephalus, territorial ischemia or abnormal extra-axial collection. Mild involutional changes. Cerebral vascular calcifications. The calvarium is intact. Right-sided lens repair. The paranasal sinuses, mastoid air cells, and middle ear cavities are clear. IMPRESSION: No acute intracranial abnormality. ACT 112: Negative or not required by law. The above report was generated using voice recognition software. It may contain grammatical, syntax or spelling errors. Electronically signed by: Eliseo Ortega M.D. 03/20/2021 10:23 PM Head CTA 03/20/21 19:51 CT angio neck with con, CT angio head w con CLINICAL HISTORY: 85 years-old Female with Stroke Like Symptoms. Acute strokelike symptoms COMPARISON STUDY: CT head of same day TECHNIQUE: Following the IV administration of 119 mL of Optiray, CT angiogram of the head and neck was performed from the aortic arch to the skull apex. Images are reviewed in the axial, sagittal, and coronal planes. 3-D MIPS images are created and assessed. IV contrast was administered without complication. All measurements were calculated based on NASCET criteria. A dose lowering technique was utilized adhering to the principles of ALARA. CT DOSE: 1008.22 mGy.cm FINDINGS: The opacified pulmonary arterial tree is unremarkable. Mild atherosclerosis of the proximal great vessels. Patency of the innominate and imaged subclavian arteries. The common carotid arteries are widely patent. The internal carotid arteries are also patent. Mild calcified plaque of the cavernous and supraclinoid segments. The middle and anterior cerebral arteries are patent. Dominant right vertebral artery. Developmentally diminutive left vertebral artery terminates into the left PICA. Diminutive and patent basilar artery. origin of the posterior cerebral arteries which are patent. The cerebral venous sinuses appear patent. No abnormal intracranial enhancement. The lung apices are clear. No pneumothorax. Degenerative changes of the cervical spine. IMPRESSION:Unremarkable CTA of the head and neck. ACT 112: Negative or not required by law. The above report was generated using voice recognition software. It may contain grammatical, syntax or spelling errors. Electronically signed by: Eliseo Ortega M.D. 03/20/2021 10:32 PM Neck CTA 03/20/21 19:51 CT angio neck with con, CT angio head w con CLINICAL HISTORY: 85 years-old Female with Stroke Like Symptoms. Acute strokelike symptoms COMPARISON STUDY: CT head of same day TECHNIQUE: Following the IV administration of 119 mL of Optiray, CT angiogram of the head and neck was performed from the aortic arch to the skull apex. Images are reviewed in the axial, sagittal, and coronal planes. 3-D MIPS images are created and assessed. IV contrast was administered without complication. All measurements were calculated based on NASCET criteria. A dose lowering technique was utilized adhering to the principles of ALARA. CT DOSE: 1008.22 mGy.cm FINDINGS: The opacified pulmonary arterial tree is unremarkable. Mild atherosclerosis of the proximal great vessels. Patency of the innominate and imaged subclavian arteries. The common carotid arteries are widely patent. The internal carotid arteries are also patent. Mild calcified plaque of the cavernous and supraclinoid segments. The middle and anterior cerebral arteries are patent. Dominant right vertebral artery. Developmentally diminutive left vertebral artery terminates into the left PICA. Diminutive and patent basilar artery. origin of the posterior cerebral arteries which are patent. The cerebral venous sinuses appear patent. No abnormal intracranial enhancement. The lung apices are clear. No pneumothorax. Degenerative changes of the cervical spine. IMPRESSION:Unremarkable CTA of the head and neck. ACT 112: Negative or not required by law. The above report was generated using voice recognition software. It may contain grammatical, syntax or spelling errors. Electronically signed by: Eliseo Ortega M.D. 03/20/2021 10:32 PM Discharge Plan Visit Data Chief Complaint: Dizziness Stated Complaint: WEAKNESS ED Provider: Eulogio Park Discharge Problem: Dizziness, Afib, HTN (hypertension) Forms Stand Alone Forms: My [facility] Prescriptions Prescriptions: No Action cyanocobalamin (vitamin B-12) [Vitamin B-12] 1,000 mcg Tablet 1,000 mcg PO DAILY RF: 0 allopurinol 100 mg tablet 100 mg PO DAILY RF: 0 simvastatin 20 mg tablet 20 mg PO QPM RF: 0 warfarin 2 mg tablet See Rx Instructions .ROUTE .COMPLEX RF: 0 albuterol sulfate 90 mcg/actuation HFA aerosol inhaler 2 puff INHALATION QID PRN (Reason: Shortness Of Breath Or Wheezing) RF: 0 diltiazem HCl 30 mg tablet 30 mg PO QID RF: 0 cholecalciferol (vitamin D3) [Vitamin D3] 25 mcg (1,000 unit) Capsule 25 mcg PO DAILY RF: 0 metoprolol tartrate 25 mg tablet 25 mg PO BID RF: 0 Referrals Referrals: Eric Rosa MD [Primary Care Provider] - Discharge Problem: Afib Qualifiers: Atrial fibrillation type: unspecified Qualified Code(s): I48.91 - Unspecified atrial fibrillation HTN (hypertension) Qualifiers: Hypertension type: unspecified Qualified Code(s): I10 - Essential (primary) hypertension
--- NOTE | 2021-03-21 03:10 | Billing Data ---
Date of Service March 20, 2021 Coding Level of Care Code INT OBSERVATION CARE 50M LVL 2
--- NOTE | 2021-03-21 07:33 | Hospitalist Progress Note ---
Date of Service March 21, 2021 Assessment & Plan (1) Dizziness: Plan: 85 yo admitted for dizziness/ambulatory dysfunction. Dizziness- most likely benign positional vertigo was a started with her rolling to get up out of her couch after her nap - meclizine somewhat helped with dizziness adding transdermal scopolamine - continue meclizine PRN, zofran added for nausea PT evaluation - CT head/CTA head/neck negative for stroke/edema/carotid stenosis causing symptoms. given position dependent symptoms, unlikely to be stroke etiology. (2) Afib: Plan: metoprolol tartrate 25 bid diltiazem typically 30 qid will change to extended release, and coumadin with INR slightly elevated (3) HTN (hypertension): Plan: usually controlled with metrolol and diltiazem (4) CAD (coronary artery disease): Plan: typically not on aspirin on zocor and bp control (5) Gout: Plan: allopurinol Plan: DVT ppx: on warfarin full code Admission and Anticipated Discharge Date Admission Date: March 20, 2021 Subjective pt states she feels about 50% improved but still with significant symptoms with walking Review of Systems Review of Systems: Mild distress and fatigue no headache, no visual changes no diplopia no speech or swallowing issues no chest pain, pressure or palpitations no shortness of breath, cough or wheezes no abdominal pain, nausea or vomiting, diarrhea or constipation no dysuria, hematuria or frequency no focal joint pain or swelling no back pain, CVA tenderness or radicular pain no bruising, bleeding or rashes no focal signs of weakness or numbness or altered sensation does complain of dysequilibrium no complaints of anxiety or depression.. Physical Exam Physical Exam: The patient appeared well nourished and normally developed. Vital signs as documented. Head exam is normocephalic atraumatic Neck is without JVD, thyromegaly, or carotid bruits. Lungs are clear to auscultation, no focal loss of breath sounds Cardiac exam, Rhythm is regular.. No murmurs, rubs or gallops. Abdominal exam reveals normal bowel sounds, soft non tender, no masses Extremities are nonedematous and both pedal pulses are present Neurologic exam is alert and oriented, no focal loss of strength or sensation No nystagmus is noted reproducible symptoms with positional head movements Skin is without bruises or rashes Psychologically is without concerns for anxiety or depression Results & Data Results & Data ([facility]) Vital Signs (Past 12 Hours) Vital Signs Temp Pulse Pulse Resp BP BP Pulse Ox 03/21/21 07:00 97.9 F 70 20 115/69 95 03/21/21 02:51 97.5 F L 64 16 130/84 93 03/21/21 00:30 65 18 155/81 H 03/21/21 00:00 71 17 140/93 03/20/21 23:30 83 17 153/107 H 03/20/21 23:00 80 17 142/90 H 94 03/20/21 22:30 80 16 157/83 H 94 03/20/21 22:00 86 18 132/78 94 03/20/21 21:30 81 17 137/81 98 03/20/21 21:00 78 16 135/88 98 03/20/21 20:30 78 22 151/95 H 98 03/20/21 20:00 90 18 152/109 H 98 03/20/21 19:51 98.1 F 89 16 171/112 H 94 PG Care Time/CCT Total # of Minutes Spent Total Time Spent with Patient: Total time spent is greater than 50% in coordination of care (as documented) at patient's floor/unit and/or counseling patient: Coding Level of Care Code 67479 Subseq Obs Care Lvl 2 Diagnoses Dizziness R42 Afib I48.91 Atrial fibrillation type: unspecified HTN (hypertension) I10 Hypertension type: unspecified CAD (coronary artery disease) I25.10 Gout M10.9 (1) Afib Atrial fibrillation type: unspecified Qualified Code(s): I48.91 - Unspecified atrial fibrillation (2) HTN (hypertension) Hypertension type: unspecified Qualified Code(s): I10 - Essential (primary) hypertension
[2021-03-21 08:29] LABS: Prothrombin Time 27.8 Seconds (9.0-12.0)
[2021-03-21] MEDS: dilTIAZem HCL 120 MG CAPCR PO SCH (08:59)
[2021-03-21] MEDS: allopurinoL 100 MG TAB PO SCH (08:59)
[2021-03-21] MEDS: METOPROLOL TARTRATE 25 MG TAB PO SCH ×2 (08:59→20:32)
[2021-03-21] MEDS ORDERED: dilTIAZem HCL 30 MG TAB PO SCH (09:00)
--- NOTE | 2021-03-21 09:30 | Electrocardiogram Report ---
Test Reason : Blood Pressure : / mmHG Vent. Rate : 087 BPM Atrial Rate : 115 BPM P-R Int : 000 ms QRS Dur : 082 ms QT Int : 360 ms P-R-T Axes : 000 077 018 degrees QTc Int : 433 ms Atrial fibrillation Septal infarct , age undetermined Abnormal ECG When compared with ECG of 12-NOV-2008 06:36, Septal infarct is now Present T wave inversion less evident in Lateral leads Confirmed by Asher Molina ([id number]) on 03/21/2021 9:30:15 AM Referred By: REFERRED SELF Confirmed By:Asher Molina
[2021-03-21] MEDS ORDERED: SCOPOLAMINE 1 MG TDSY TD ONE (11:32)
[2021-03-21] MEDS: CHECK SCOPOLAMINE PATCH PLACEMENT SCH ×2 (16:18→23:35)
[2021-03-21] MEDS: WARFARIN SOD 3 MG TAB PO SCH (16:28)
[2021-03-21] MEDS: SIMVASTATIN 20 MG TAB PO SCH (20:32)
[2021-03-22] MEDS: CHECK SCOPOLAMINE PATCH PLACEMENT SCH ×3 (07:44→23:41)
[2021-03-22] MEDS: dilTIAZem HCL 120 MG CAPCR PO SCH (08:16)
[2021-03-22] MEDS: METOPROLOL TARTRATE 25 MG TAB PO SCH ×2 (08:17→21:31)
[2021-03-22] MEDS: allopurinoL 100 MG TAB PO SCH (08:17)
[2021-03-22 08:57] LABS: Hemoglobin 15.8 g/dL (12.0-16.0); Mean Corpuscular Hemoglobin 31.3 pg (25-34); Mean Corpuscular Hgb Conc 32.9 g/dL (32-36); Mean Corpuscular Volume 95.2 fL (80-100); Mean Platelet Volume 10.6 fL (7.4-10.4); Platelet Count 171 K/uL (130-400); RDW Coefficient of Variation 14.8 % (11.5-14.5); RDW Standard Deviation 52.1 fL (36.4-46.3); Red Blood Count 5.04 M/uL (4.2-5.4); White Blood Count 5.29 K/uL (4.8-10.8)
[2021-03-22 09:07] LABS: INR 2.7 (0.9-1.1); Prothrombin Time 25.2 Seconds (9.0-12.0)
[2021-03-22 09:24] LABS: BUN Creatinine Ratio 21.9 (10-20); Calcium 8.6 mg/dl (8.5-10.1); Creatinine Clr Calc Pharmacy 36.5 ml/min; Est GFR (African American) 51.2 ml/min; Est GFR (Non-African American) 44.1 ml/min; Potassium 4.3 mmol/L (3.5-5.1)
[2021-03-22] MEDS: WARFARIN SOD 3 MG TAB PO SCH (16:15)
[2021-03-22] MEDS: SIMVASTATIN 20 MG TAB PO SCH (21:31)
--- NOTE | 2021-03-22 22:54 | Hospitalist Progress Note ---
Date of Service March 22, 2021 Assessment & Plan (1) Dizziness: Plan: 85 yo admitted for dizziness/ambulatory dysfunction. Dizziness- most likely benign positional vertigo vs. vestibular neuritis (given time course) - meclizine somewhat helped with dizziness adding transdermal scopolamine - continue meclizine PRN, zofran added for nausea PT evaluation - CT head/CTA head/neck negative for stroke/edema/carotid stenosis causing symptoms. given position dependent symptoms, unlikely to be stroke etiology. (2) Afib: Plan: metoprolol tartrate 25 bid diltiazem typically 30 qid will change to extended release, and coumadin with INR slightly elevated (3) HTN (hypertension): Plan: usually controlled with metrolol and diltiazem (4) CAD (coronary artery disease): Plan: typically not on aspirin on zocor and bp control (5) Gout: Plan: allopurinol Plan: DVT ppx: on warfarin, INR therapeutic, continue home dose full code Admission and Anticipated Discharge Date Admission Date: March 21, 2021 Anticipated date of discharge: 03/23/21 Subjective Continued improvement in her dizziness but not yet back to baseline and suspect she has continued fear of falling. Lives alone. Does not wish to consider rehab for safety. Doing well with physical therapy. Currently has scopolamine patch on. Review of Systems Review of Systems: All systems reviewed & are unremarkable except as noted in HPI & below Physical Exam Constitutional: WD/WN, vitals as above Eyes: PERRL, conjunctivae normal, anicteric sclerae EOM intact bilaterally; no nystagmus ENMT: external ear and nose normal, oropharynx normal Neck: trachea midline, no thyromegaly Respiratory: normal respiratory effort, lungs clear to auscultation Cardiovascular: Rate/Rhythm: regular rate and + irregularly irregular Heart Sounds: no murmur Extremities: normal capillary refill; no pedal edema Gastrointestinal (Abdomen): normal bowel sounds, soft, nontender, no hepatosplenomegaly Musculoskeletal: no cyanosis or clubbing, extremities motor strength 5/5 Skin: no rashes, warm and dry Neurologic: moves all extremities and awake; not confused Psychiatric: A+Ox3, euthymic affect Results & Data Results & Data ([facility]) Vital Signs (Past 12 Hours) Vital Signs Temp Pulse Resp BP BP Pulse Ox 03/22/21 22:32 36.5 C 59 L 17 131/80 95 03/22/21 21:30 93 03/22/21 21:22 73 126/81 84 L 03/22/21 14:50 36.6 C 55 L 16 108/69 91 PG Care Time/CCT Total # of Minutes Spent Total Time Spent with Patient: Total time spent is greater than 50% in coordination of care (as documented) at patient's floor/unit and/or counseling patient: Coding Level of Care Code 98042 Subseq Hosp Care Lvl 2 Diagnoses Dizziness R42 Afib I48.91 Atrial fibrillation type: unspecified HTN (hypertension) I10 Hypertension type: unspecified CAD (coronary artery disease) I25.10 Gout M10.9 (1) Afib Atrial fibrillation type: unspecified Qualified Code(s): I48.91 - Unspecified atrial fibrillation (2) HTN (hypertension) Hypertension type: unspecified Qualified Code(s): I10 - Essential (primary) hypertension
[2021-03-23 08:21] LABS: INR 3.1 (0.9-1.1); Prothrombin Time 28.6 Seconds (9.0-12.0)
[2021-03-23] MEDS: METOPROLOL TARTRATE 25 MG TAB PO SCH (09:11)
[2021-03-23] MEDS: dilTIAZem HCL 120 MG CAPCR PO SCH (09:11)
[2021-03-23] MEDS: allopurinoL 100 MG TAB PO SCH (09:11)
--- NOTE | 2021-03-23 13:20 | Discharge Summary ---
Date of Service March 23, 2021 Admission HPI Per Admitting Provider 85 yo F with hx afib and htn in ER for dizziness for the past few days. States that she's had a handful of episodes while standing, but this morning woke up being dizzy and was unable to lift herself mcc up to sitting without being dizzy. States that the room is spinning around her. No nausea, but some generalized discomfort. does state that she hasn't been drinking or eating as much as she should the past few days with it being so hot. Hasn't had her night dose of diltiazem tonight, otherwise has taken all of her medications. No numbness/tingling. No weakness. No speech changes or slurring. No chest pa in/SOB. Discharge Data Allergies Allergy/AdvReac Type Severity Reaction Status Date / Time Sulfa (Sulfonamide Allergy Intermediate RASH/GI Verified 03/20/21 20:38 Antibiotics) UPSET mercury (elemental) Allergy Mild RASH Verified 03/20/21 20:38 Penicillins Allergy Mild RASH Verified 03/20/21 20:38 hydromorphone AdvReac Intermediate ACTED Verified 03/20/21 20:38 STRANGE NSAIDS (Non-Steroidal AdvReac Intermediate INTERNAL Verified 03/20/21 20:38 Anti-Inflamma BLEEDING Consultations 03/21/21 00:27 ED Decision to Admit Stat Ordered Studies 03/20/21 19:51 CT angio head w con Stat CT angio neck with con Stat CT head/brain wo con Stat Hospital Course (1) Dizziness: 85 yo admitted for dizziness/ambulatory dysfunction. Dizziness- most likely benign positional vertigo vs. vestibular neuritis (given time course) - meclizine somewhat helped with dizziness adding transdermal scopolamine - continue meclizine PRN, zofran added for nausea PT evaluation - CT head/CTA head/neck negative for stroke/edema/carotid stenosis causing symptoms. given position dependent symptoms, unlikely to be stroke etiology. (2) Afib: metoprolol tartrate 25 bid diltiazem typically 30 qid will change to extended release, and coumadin with INR slightly elevated (3) HTN (hypertension): usually controlled with metrolol and diltiazem (4) CAD (coronary artery disease): typically not on aspirin on zocor and bp control (5) Gout: allopurinol DVT ppx: on warfarin, INR therapeutic, continue home dose full code Discharge Plan Discharge Items Patient Disposition: Home - Self-Care Reason For Visit: DIZZINESS Discharge Diagnosis: Vertigo Activity: Resume your previous activity Non-emergency contact: Primary Care Provider Call non-emergency contact if: you have any medication questions and your symptoms worsen Follow-up/Referrals: Eric Rosa MD [Primary Care Provider] - Diet: Heart Healthy Addtl Attending Provider Instructions: You were admitted to [facility] from March 20 - 2020 due to dizziness. You were diagnosed with vertigo. Suspect secondary to benign paroxysmal positional vertigo although alternative possibility of acute vestibular neuritis not ruled out. Recommend using meclizine as needed for recurrent episodes. Recommend referral to physical therapy from your primary care physician if this recurs. Pending Studies at Discharge: No Stand-Alone Forms: [facility], Smoking Cessation Medications and DC Order Prescriptions: New meclizine 12.5 mg tablet 12.5 mg PO Q6H PRN (Reason: vertigo) Qty: 10 RF: 0 Continued cyanocobalamin (vitamin B-12) [Vitamin B-12] 1,000 mcg Tablet 1,000 mcg PO DAILY RF: 0 allopurinol 100 mg tablet 100 mg PO DAILY RF: 0 simvastatin 20 mg tablet 20 mg PO QPM RF: 0 warfarin 2 mg tablet See Rx Instructions .ROUTE .COMPLEX RF: 0 albuterol sulfate 90 mcg/actuation HFA aerosol inhaler 2 puff INHALATION QID PRN (Reason: Shortness Of Breath Or Wheezing) RF: 0 diltiazem HCl 30 mg tablet 30 mg PO QID RF: 0 cholecalciferol (vitamin D3) [Vitamin D3] 25 mcg (1,000 unit) Capsule 25 mcg PO DAILY RF: 0 metoprolol tartrate 25 mg tablet 25 mg PO BID RF: 0 Discharge Orders: Discharge Order (Routine); Ordered 03/23/21 Ordered By: Zachary Carrion/Other Patient Handouts: What to Know When TakingWarfarin, Dizziness Balance Probs Fainting Admission Data Admit Date/Time: 03/21/21 13:27 Attending Provider: Zachary Martin Admit Provider: Maral Toro Primary Care Provider: Eric Rosa Other Providers: Jacqui Olmstead Other Interventions: Discharge Summary Assessment (RN) Last Done: 03/23/21 12:57 Coding Diagnoses Dizziness R42 Afib I48.91 Atrial fibrillation type: unspecified HTN (hypertension) I10 Hypertension type: unspecified CAD (coronary artery disease) I25.10 Gout M10.9
[2021-03-25] MEDS ORDERED: WARFARIN SOD 4 MG TAB PO SCH (16:00)
== END 2021-03-23 15:17 | disposition home or self-care (01) | DRG 149 ==
LOC: 3N 19:39 → ED 19:39 → SUATTDRO 23:37 → 3N 03-21 02:24 → SUATTDRO 03-21 13:27

== ENCOUNTER 2023-01-04 08:36 | Inpatient (IN) ==
[2023-01-04] MEDS ORDERED: ALBUTEROL 0.083% NEBU SOLN 3 ML VIAL NEB STA (09:00)
[2023-01-04] MEDS ORDERED: methylPREDNISolone 125 MG/2 ML VIAL IV STA (09:00)
--- NOTE | 2023-01-04 09:00 | Emergency Department Note ---
Impression & Plan Hypoxic, Shortness of breath, Afib ED Provider Note NAME: MONTANA MELLO AGE: 87 SEX: F : 1935 ARRIVES VIA: Walk-In INFORMANT: Patient ED PROVIDER(S): Nicholas Rodriguez DO CHIEF COMPLAINT: shortness of breath HPI: Patient is an 87-year-old female who presents to the ER for shortness of breath. She notes this has been present for a couple months but has gotten worse over the past 2 weeks. She has a cough but this has been unchanged. Shortness of breath is significantly worse with exertion. Improves with rest. Denies any chest pain or belly pain. No nausea, vomiting, or diarrhea. No dysuria, urgency, or frequency. No swelling of the legs. No recent weight gain. She did call her doctor and was referred in today. She has a remote history of asthma but notes that that they believe that this was secondary to sinus infections. PAST MEDICAL HISTORY:See Below PAST SURGICAL HISTORY:See Below FAMILY HISTORY:See Below SOCIAL HISTORY:See Below HOME MEDICATIONS:See Below ALLERGIES:See Below VITALS:See Below PHYSICAL EXAMINATION: GENERAL: Sitting up in bed, alert, well appearing, well nourished, no distress, non-toxic EYE EXAM: normal conjunctiva. OROPHARYNX: no exudate, no erythema, lips, buccal mucosa, and tongue normal and mucous membranes are moist NECK: supple, no nuchal rigidity, no adenopathy, non-tender LUNGS: Clear to auscultation. Normal chest wall mechanics HEART: no murmurs, S1 normal and S2 normal ABDOMEN: abdomen soft, non-tender, normo-active bowel sounds, no masses, no rebound or guarding. UPPER EXTREMITIES: upper extremities are grossly normal. LOWER EXTREMITIES: No pitting edema. NEURO EXAM: Normal sensorium, cranial nerves II-XII grossly intact, normal speech, no gross weakness of arms, no gross weakness of legs. MEDICAL DECISION MAKING: Patient is an 87-year-old female who presents to the ER for above-stated compl aint. IV was established blood work was obtained. External records reviewed. Labs show no significant leukocytosis with a hemoglobin of 16. INR therapeutic at 3.2 with this PE was not explored. BMP along LFTs bilirubin and lipase was unremarkable. Troponin was negative. COVID-negative. Chest x-ray was clean. Patient was hypoxic at 88% with room air. Was given steroids and neb treatment. Patient remained on nasal cannula throughout her stay in the ER and was admitted for further work-up discussed with Dr. Zachary Martin. Triage Nursing notes reviewed. Limited review of prior medical records performed Vital Signs: reviewed and remarkable for hypoxic Differential diagnosis: Differential diagnoses includes but is not limited to pneumonia, bronchitis, COPD/Asthma exacerbation, pneumothorax, pulmonary embolism, congestive heart failure, acute coronary syndrome ER treatment provided: See below Diagnostics interpreted by me include EKG and cardiac monitoring as listed below: -Cardiac Monitoring: An order was placed for continuous cardiac monitoring. The monitor shows a rate of 55 with Afib rhythm. -ECG: A-fib rate of 50 Normal axis No PVCs QTc 452 -Laboratory studies:Interpreted by me as stated above in MDM and shown below. Imaging studies: Xrays: As interpreted by me: Portable AP upright 1 view of the chest shows no pneumonia CTs show: none Consultation(s): As described in MDM Procedures:none Critical Care: None Past Med/Surg History Medical History Afib on warfarin daily -follows w/ Dr Lai last visit 06/2022 CAD (coronary artery disease) COPD (chronic obstructive pulmonary disease) rarely needs inhaler Gout HTN (hypertension) Surgical History History of esophagogastroduodenoscopy (EGD) Hx of cardiac catheterization about 15 yrs ago, no stents- [facility] Hx of cholecystectomy Hx of colonoscopy Hx of hysterectomy Family History Other No family history of adverse response to anesthesia Social History Smoking Status: Never smoker Second Hand Exposure: No; Do You Dip or Chew Tobacco: No; Hx Alcohol Use: No Hx Substance Use: No Preferred Language: Luxembourgish Communication Ability: Effective Aircraft Electrician Required: No Beliefs That Will Affect Care: None marital status: / Current Living Situation: Alone Feels Safe at Home: Yes Assistive Devices: Glasses Allergies Allergies Allergy/AdvReac Type Severity Reaction Status Date / Time Sulfa (Sulfonamide Allergy Intermediate RASH/GI Verified 01/04/23 12:33 Antibiotics) UPSET mercury (elemental) Allergy Mild RASH Verified 01/04/23 12:33 Penicillins Allergy Mild RASH Verified 01/04/23 12:33 hydromorphone AdvReac Intermediate ACTED Verified 01/04/23 12:33 STRANGE NSAIDS (Non-Steroidal AdvReac Intermediate INTERNAL Verified 01/04/23 12:33 Anti-Inflamma BLEEDING Home Meds Home Medications Medication Instructions Recorded Confirmed albuterol sulfate 90 mcg/actuation 2 puff inhalation QID PRN 03/20/21 01/04/23 aerosol inhaler Shortness Of Breath Or Wheezing allopurinol 100 mg tablet 100 mg PO QAM 03/20/21 01/04/23 cholecalciferol (vitamin D3) 25 25 mcg PO QAM 03/20/21 01/04/23 mcg (1,000 unit) capsule (Vitamin D3) diltiazem HCl 30 mg tablet 30 mg PO QID 03/20/21 01/04/23 metoprolol tartrate 25 mg tablet 25 mg PO BID 03/20/21 01/04/23 simvastatin 20 mg tablet 20 mg PO Q OTHER DAY 03/20/21 01/04/23 warfarin 2 mg tablet See Rx Instructions .Route .COMPLEX 03/20/21 01/04/23 Vitamin B12 Tab 2,500 mcg PO Q OTHER DAY 01/04/23 01/04/23 Previous Rx's Medication Instructions Recorded meclizine 12.5 mg tablet 12.5 mg PO Q6H PRN vertigo #10 tabs 03/23/21 Results & Data (ED) Vital Signs Vital Signs - 24 hr 01/04/23 08:50 01/04/23 09:12 01/04/23 09:14 Temperature 36.3 C L Temperature Source Temporal Artery Scan Pulse Rate 54 L 59 L Pulse Rate [Left Finger] Pulse Rhythm Regular Pulse Strength Normal Respiratory Rate 26 H Respiratory Effort / Characteristics Non-Labored Respiratory Depth Normal Blood Pressure 132/79 Blood Pressure [Left Arm] Blood Pressure Mean 96 Blood Pressure Mean [Left Arm] Blood Pressure Position [Left Arm] Pulse Oximetry 88 L 86 L Oxygen Delivery Method Room Air Room Air Oxygen Flow Rate Sepsis Recent Fever Within 48 Hours No Sepsis New/Unexplained Change in Mental Status N/A Sepsis Action Taken by Nursing No Action Required 01/04/23 09:15 Temperature Temperature Source Pulse Rate Pulse Rate [Left Finger] 57 L Pulse Rhythm Pulse Strength Respiratory Rate Respiratory Effort / Characteristics Respiratory Depth Blood Pressure Blood Pressure [Left Arm] 146/84 H Blood Pressure Mean Blood Pressure Mean [Left Arm] 104 Blood Pressure Position [Left Arm] Sitting Pulse Oximetry 93 Oxygen Delivery Method Nasal Cannula Oxygen Flow Rate 2 Sepsis Recent Fever Within 48 Hours Sepsis New/Unexplained Change in Mental Status Sepsis Action Taken by Nursing Laboratory Data 01/04/23 09:30 01/04/23 09:30 Lab Results 01/04/23 01/04/23 01/04/23 Range/Units 09:00 09:30 09:30 WBC 6.46 (4.8-10.8) K/ul RBC 5.29 (4.20-5.40) M/uL Hgb 16.5 H (12.0-16.0) g/dl Hct 50.2 H (37.0-47.0) % MCV 94.9 (80.0-100.0) fL MCH 31.2 (25.0-34.0) pg MCHC 32.9 (32.0-36.0) g/dL RDW Std Deviation 51.9 H (36.4-46.3) fL RDW Coeff of Andrews 14.6 H (11.5-14.5) % Plt Count 161 (130-400) K/uL MPV 10.6 (9.4-12.4) fL Immature Gran % (Auto) 0.2 % Neut % (Auto) 67.8 % Lymph % (Auto) 18.7 % [place] % (Auto) 10.5 % Eos % (Auto) 1.9 % Baso % (Auto) 0.9 % Neut # (Auto) 4.38 (1.40-6.50) K/uL Lymph # (Auto) 1.21 (1.2-3.4) K/uL [place] # (Auto) 0.68 H (0.11-0.59) K/uL Eos # (Auto) 0.12 (0-0.50) K/uL Baso # (Auto) 0.06 (0-0.2) K/uL Immature Gran # (Auto) 0.01 (0.01-0.20) K/uL PT (9.0-12.0) Seconds INR (0.9-1.1) Sodium 138 (136-145) mmol/L Potassium 3.8 (3.5-5.1) mmol/L Chloride 105 (98-107) mmol/L Carbon Dioxide 26 (21-32) mmol/L Anion Gap 7 (3-11) BUN 19 (6-23) mg/dl Creatinine 1.02 (0.6-1.2) mg/dl Est Cr Clr Drug Dosing 37.6 ml/min Est GFR ( Amer) 56.5 ml/min Est GFR (Non-Af Amer) 48.7 ml/min BUN/Creatinine Ratio 18.6 (10-20) Glucose 95 (70-99(Fasting)) mg/dl Calcium 9.6 (8.6-10.3) mg/dl Total Bilirubin 1.1 H (0.2-1.0) mg/dl AST 18 (13-39) U/L ALT 12 (7-52) U/L Alkaline Phosphatase 104 (34-104) U/L Troponin I High Sens 12.5 (0-14) pg/ml Total Protein 7.4 (6.0-8.3) gm/dl Albumin 4.0 (3.4-5.0) gm/dl Globulin 3.4 (2.5-4.0) gm/dl Albumin/Globulin Ratio 1.2 (0.9-2) Lipase 26 (11-82) U/L SARS-CoV-2, RNA, NAAT NEGATIVE (NEGATIVE) 01/04/23 Range/Units 09:30 WBC (4.8-10.8) K/ul RBC (4.20-5.40) M/uL Hgb (12.0-16.0) g/dl Hct (37.0-47.0) % MCV (80.0-100.0) fL MCH (25.0-34.0) pg MCHC (32.0-36.0) g/dL RDW Std Deviation (36.4-46.3) fL RDW Coeff of Andrews (11.5-14.5) % Plt Count (130-400) K/uL MPV (9.4-12.4) fL Immature Gran % (Auto) % Neut % (Auto) % Lymph % (Auto) % [place] % (Auto) % Eos % (Auto) % Baso % (Auto) % Neut # (Auto) (1.40-6.50) K/uL Lymph # (Auto) (1.2-3.4) K/uL [place] # (Auto) (0.11-0.59) K/uL Eos # (Auto) (0-0.50) K/uL Baso # (Auto) (0-0.2) K/uL Immature Gran # (Auto) (0.01-0.20) K/uL PT 32.7 H (9.0-12.0) Seconds INR 3.2 H (0.9-1.1) Sodium (136-145) mmol/L Potassium (3.5-5.1) mmol/L Chloride (98-107) mmol/L Carbon Dioxide (21-32) mmol/L Anion Gap (3-11) BUN (6-23) mg/dl Creatinine (0.6-1.2) mg/dl Est Cr Clr Drug Dosing ml/min Est GFR ( Amer) ml/min Est GFR (Non-Af Amer) ml/min BUN/Creatinine Ratio (10-20) Glucose (70-99(Fasting)) mg/dl Calcium (8.6-10.3) mg/dl Total Bilirubin (0.2-1.0) mg/dl AST (13-39) U/L ALT (7-52) U/L Alkaline Phosphatase (34-104) U/L Troponin I High Sens (0-14) pg/ml Total Protein (6.0-8.3) gm/dl Albumin (3.4-5.0) gm/dl Globulin (2.5-4.0) gm/dl Albumin/Globulin Ratio (0.9-2) Lipase (11-82) U/L SARS-CoV-2, RNA, NAAT (NEGATIVE) Administered Medications Discontinued Medications Albuterol (Albuterol 0.083% Nebu Soln 3 Ml Vial) 2.5 mg NEB NOW STA; Protocol Stop: 01/04/23 09:01 Last Admin: 01/04/23 09:13 Dose: 2.5 mg Documented By: KTS Methylprednisolone (Methylprednisolone 125 Mg/2 Ml Vial) 60 mg IV NOW STA Stop: 01/04/23 09:01 Last Admin: 01/04/23 09:35 Dose: 60 mg Documented By: KTS Imaging Data Radiologist's Impression: Chest X-Ray 01/04/23 08:54 XR chest 1V portable CLINICAL HISTORY: Chest pain, nonspecific TECHNIQUE: Single frontal radiograph of the chest was obtained. Comparison: Comparison is made to chest radiograph 03/20/2021 FINDINGS: No lines and tubes are seen. Cardiomegaly is noted. The aortic arch is calcified. The lungs are clear. No evidence of pleural effusion or pneumothorax. IMPRESSION: No acute chest disease. Cardiomegaly is noted. ACT 112: Negative or not required by law. Electronically signed by: Brendan Cárdenas M.D. 01/04/2023 9:18 AM Discharge Plan Visit Data Chief Complaint: Referred by Doctor Stated Complaint: DR EPPS REFERRED, LOW O2 ED Provider: Nicholas Rodriguez Discharge Problem: Hypoxic, Shortness of breath, Afib Patient Disposition: Admitted As Inpatient Discharge Instructions Interventions: ED Discharge Assessment Last Done: 01/04/23 14:44
--- NOTE | 2023-01-04 09:19 | XRay Report ---
XR chest 1V portable CLINICAL HISTORY: Chest pain, nonspecific TECHNIQUE: Single frontal radiograph of the chest was obtained. Comparison: Comparison is made to chest radiograph 03/20/2021 FINDINGS: No lines and tubes are seen. Cardiomegaly is noted. The aortic arch is calcified. The lungs are clear . No evidence of pleural effusion or pneumothorax. IMPRESSION: No acute chest disease. Cardiomegaly is noted. ACT 112: Negative or not required by law. Electronically signed by: Brendan Cárdenas M.D. 01/04/2023 9:18 AM
[2023-01-04 10:39] LABS: Troponin I High Sensitivity 12.5 pg/ml (0-14)
[2023-01-04 10:45] LABS: Basophils # (auto) 0.06 K/uL (0-0.2); Basophils % (auto) 0.9 %; Eosinophils # (auto) 0.12 K/uL (0-0.50); Eosinophils % (auto) 1.9 %; Hematocrit (blood only) 50.2 % (37.0-47.0); Hemoglobin 16.5 g/dl (12.0-16.0); Immature Granulocytes # (auto) 0.01 K/uL (0.01-0.20); Immature Granulocytes % (auto) 0.2 %; Lymphocytes # (auto) 1.21 K/uL (1.2-3.4); Lymphocytes % (auto) 18.7 %; Mean Corpuscular Hemoglobin 31.2 pg (25.0-34.0); Mean Corpuscular Hgb Conc 32.9 g/dL (32.0-36.0); Mean Corpuscular Volume 94.9 fL (80.0-100.0); Mean Platelet Volume 10.6 fL (9.4-12.4); Monocytes # (auto) 0.68 K/uL (0.11-0.59); Monocytes % (auto) 10.5 %; Neutrophils # (auto) 4.38 K/uL (1.40-6.50); Neutrophils % (auto) 67.8 %; Platelet Count 161 K/uL (130-400); RDW Coefficient of Variation 14.6 % (11.5-14.5); RDW Standard Deviation 51.9 fL (36.4-46.3); Red Blood Count 5.29 M/uL (4.20-5.40); White Blood Count 6.46 K/ul (4.8-10.8)
[2023-01-04 10:46] LABS: Albumin Globulin Ratio 1.2 (0.9-2); BUN Creatinine Ratio 18.6 (10-20); Bilirubin,Total 1.1 mg/dl (0.2-1.0); Calcium 9.6 mg/dl (8.6-10.3); Creatinine Clr Calc Pharmacy 37.6 ml/min; Est GFR (African American) 56.5 ml/min; Est GFR (Non-African American) 48.7 ml/min; Globulin 3.4 gm/dl (2.5-4.0); Potassium 3.8 mmol/L (3.5-5.1); Total Protein 7.4 gm/dl (6.0-8.3)
[2023-01-04 10:51] LABS: INR 3.2 (0.9-1.1); Prothrombin Time 32.7 Seconds (9.0-12.0)
--- NOTE | 2023-01-04 11:42 | Electrocardiogram Report ---
Test Reason : Blood Pressure : / mmHG Vent. Rate : 050 BPM Atrial Rate : 000 BPM P-R Int : 000 ms QRS Dur : 096 ms QT Int : 496 ms P-R-T Axes : 000 095 -20 degrees QTc Int : 452 ms Atrial fibrillation with slow ventricular response Rightward axis Low voltage QRS Incomplete right bundle branch block Poor R wave progression, consider anterior [place] vs. lead placement vs. LVH Abnormal ECG When compared with ECG of 20-MAR-2021 19:49, Vent. rate has decreased BY 37 BPM Incomplete right bundle branch block is now Present Nonspecific T wave abnormality no longer evident in Anterior leads Confirmed by Emmanuel Galeana ([id number]) on 01/04/2023 11:42:19 AM Referred By: Confirmed By:Emmanuel Galeana
[2023-01-04] MEDS ORDERED: ACETAMINOPHEN 325 MG TAB PO PRN (14:44)
[2023-01-04] MEDS ORDERED: AZITHROMYCIN 250 MG TAB PO SCH (15:00)
[2023-01-04] MEDS: ALBUT/IPRATROP 3MG/0.5MG NEB 3 ML VIAL NEB SCH ×2 (15:27→19:44)
[2023-01-04] MEDS ORDERED: WARFARIN SOD 3 MG TAB PO SCH (17:15)
[2023-01-04] MEDS ORDERED: WARFARIN SOD 2 MG TAB PO SCH (17:15)
[2023-01-04] MEDS: dilTIAZem HCL 30 MG TAB PO SCH ×2 (17:59→21:23)
[2023-01-04] MEDS: FLUTICASONE/VILANTEROL 200/25MCG 14 PUFFS/INHALER INH SCH (20:16)
[2023-01-04] MEDS: SODIUM CHLORIDE 0.65% NA SOLN 45 ML (OCEAN) SCH (20:17)
[2023-01-04] MEDS: SIMVASTATIN 20 MG TAB PO SCH (20:18)
[2023-01-04] MEDS: METOPROLOL TARTRATE 25 MG TAB PO SCH (21:22)
--- NOTE | 2023-01-05 00:53 | History & Physical Report ---
Date of Service January 04, 2023 Assessment & Plan (1) Asthma exacerbation: Plan: Duonebs QID Solu-medrol given in ER, start prednisone 50mg PO daily Start Breo Ellipta - possibly needs to take regularly as outpatient Azithromycin 500mg PO x3 days to cover atypical infection (2) Hypoxic: Plan: Aim O2 sats > 90% Secondary to asthma exacerbation Baseline not on oxygen (3) HTN (hypertension): Plan: Continue metoprolol and diltiazem (4) Afib: Plan: Rate controlled, continue metoprolol and diltiazem Anticoagulation with warfarin, repeat INR in AM (5) CAD (coronary artery disease): (6) Gout: Plan VTE Prophylaxis - warfarin Diet - heart healthy Disposition - admit to med/surg tele Admission and Anticipated Discharge Date Admission Date: January 04, 2023 History of Present Illness Chief Complaint: Shortness of breath Primary Care Provider: Eric Rosa MD Corina Miller is an 87 year old female who presents to the ER with shortness of breath. Progressively getting worse over the last 3 weeks. Associated nasal congestion and post nasal drip. No fever, chills. She has an unchanged dry cough. She has a history of asthma but is not on maintenance inhalers, modest improvement with albuterol which she is using regularly. Has not been on a course of steroids for this illness. Baseline she is not on oxygen and currently requiring 2LPM O2 in the ER to maintain O2 sats < 90%. Allergies Allergy/AdvReac Type Severity Reaction Status Date / Time Sulfa (Sulfonamide Allergy Intermediate RASH/GI Verified 01/04/23 12:33 Antibiotics) UPSET mercury (elemental) Allergy Mild RASH Verified 01/04/23 12:33 Penicillins Allergy Mild RASH Verified 01/04/23 12:33 hydromorphone AdvReac Intermediate ACTED Verified 01/04/23 12:33 STRANGE NSAIDS (Non-Steroidal AdvReac Intermediate INTERNAL Verified 01/04/23 12:33 Anti-Inflamma BLEEDING Home Medications Medication Instructions Recorded Confirmed Type albuterol sulfate 90 mcg/actuation 2 puff inhalation QID PRN 03/20/21 01/04/23 History aerosol inhaler Shortness Of Breath Or Wheezing allopurinol 100 mg tablet 100 mg PO QAM 03/20/21 01/04/23 History cholecalciferol (vitamin D3) 25 25 mcg PO QAM 03/20/21 01/04/23 History mcg (1,000 unit) capsule (Vitamin D3) diltiazem HCl 30 mg tablet 30 mg PO QID 03/20/21 01/04/23 History metoprolol tartrate 25 mg tablet 25 mg PO BID 03/20/21 01/04/23 History simvastatin 20 mg tablet 20 mg PO Q OTHER DAY 03/20/21 01/04/23 History warfarin 2 mg tablet See Rx Instructions .Route .COMPLEX 03/20/21 01/04/23 History meclizine 12.5 mg tablet 12.5 mg PO Q6H PRN vertigo #10 tabs 03/23/21 01/04/23 Rx Vitamin B12 Tab 2,500 mcg PO Q OTHER DAY 01/04/23 01/04/23 History Past Med/Surg History Medical History Afib on warfarin daily -follows w/ Dr Lai last visit 06/2022 CAD (coronary artery disease) COPD (chronic obstructive pulmonary disease) rarely needs inhaler Gout HTN (hypertension) Surgical History History of esophagogastroduodenoscopy (EGD) Hx of cardiac catheterization about 15 yrs ago, no stents- [facility] Hx of cholecystectomy Hx of colonoscopy Hx of hysterectomy Family History Other No family history of adverse response to anesthesia Social History Smoking Status: Never smoker Second Hand Exposure: No; Do You Dip or Chew Tobacco: No; Hx Alcohol Use: No Hx Substance Use: No Preferred Language: Botswan[place] Communication Ability: Effective Communication Tools: Other Administrative Professional Required: Yes Beliefs That Will Affect Care: None marital status: / Current Living Situation: Alone Feels Safe at Home: Yes Safety Concerns: Feels Safe At This Time Assistive Devices: Cane, Glasses, Nebulizer and Raised Toilet Seat Review of Systems Review of Systems: All systems reviewed & are unremarkable except as noted in HPI & below Physical Exam Constitutional: WD/WN, vitals as above Eyes: PERRL, conjunctivae normal, anicteric sclerae ENMT: external ear and nose normal, oropharynx normal Neck: trachea midline, no thyromegaly Respiratory: normal respiratory effort; no respiratory distress Auscultation: + wheezes (posterior expiratory wheezing); breath sounds present, no diminished lung sounds, no crackles, no rales and no rhonchi Cardiovascular: Rate/Rhythm: + bradycardic and + irregularly irregular Heart Sounds: no murmur Extremities: normal capillary refill and + pedal edema; no calf tenderness Gastrointestinal (Abdomen): normal bowel sounds, soft, nontender, no hepatosplenomegaly Musculoskeletal: no cyanosis or clubbing, extremities motor strength 5/5 Skin: no rashes, warm and dry Neurologic: moves all extremities and awake; not confused Psychiatric: A+Ox3, euthymic affect Results & Data Results & Data Vital Signs (Past 12 Hours) Vital Signs Temp Pulse Pulse Resp BP Pulse Ox Pulse Ox 01/04/23 23:44 36.4 C L 74 16 125/76 91 01/04/23 23:35 80 01/04/23 23:34 92 H 01/04/23 20:35 01/04/23 20:34 36.3 C L 90 18 146/89 H 94 01/04/23 19:44 86 19 93 01/04/23 18:12 01/04/23 18:04 90 16 181/102 H 94 01/04/23 18:02 94 01/04/23 18:00 107 H 23 181/102 H 92 01/04/23 15:07 78 01/04/23 13:14 76 O2 Del Method O2 Del Method O2 Flow Rate 01/04/23 23:44 Nasal Cannula 2 01/04/23 23:35 01/04/23 23:34 01/04/23 20:35 Nasal Cannula 2 01/04/23 20:34 Nasal Cannula 2 01/04/23 19:44 Nasal Cannula 3 01/04/23 18:12 Nasal Cannula 3 01/04/23 18:04 Nasal Cannula 3 01/04/23 18:02 Nasal Cannula 01/04/23 18:00 Nasal Cannula 2 01/04/23 15:07 01/04/23 13:14 Laboratory Results Abnormal lab results 01/04/23 01/04/23 01/04/23 Range/Units 09:30 09:30 09:30 Hgb 16.5 H (12.0-16.0) g/dl Hct 50.2 H (37.0-47.0) % RDW Std Deviation 51.9 H (36.4-46.3) fL RDW Coeff of Andrews 14.6 H (11.5-14.5) % Chaves # (Auto) 0.68 H (0.11-0.59) K/uL PT 32.7 H (9.0-12.0) Seconds INR 3.2 H (0.9-1.1) Total Bilirubin 1.1 H (0.2-1.0) mg/dl Diagnostic Findings XR chest 1V portable CLINICAL HISTORY: Chest pain, nonspecific TECHNIQUE: Single frontal radiograph of the chest was obtained. Comparison: Comparison is made to chest radiograph 03/20/2021 FINDINGS: No lines and tubes are seen. Cardiomegaly is noted. The aortic arch is calcified. The lungs are clear. No evidence of pleural effusion or pneumothorax. IMPRESSION: No acute chest disease. Cardiomegaly is noted. Medications Administered ER Medications Given: Duoneb 3ml Solu-Medrol 60mg IV ECG Rate (beats per minute): 50 Rhythm: atrial fibrillation Findings: + RBBB (incomplete); no acute ischemic change Comparison ECG Date: from (March 20, 2021) Change: the following changes noted (incomplete RBB now present) Code Status & VTE Plan Code Status Full VTE Prophylaxis Plan VTE Prophylaxis will be ordered: Yes PG Care Time/CCT Total # of Minutes Spent Total Time Spent with Patient: Total time spent is greater than 50% in coordination of care (as documented) at patient's floor/unit and/or counseling patient: Coding Level of Care Code 44115 INT INP/OBS CARE 2/55MIN Diagnoses Asthma exacerbation J45.901 Hypoxic R09.02 HTN (hypertension) I10 Hypertension type: unspecified Afib I48.91 CAD (coronary artery disease) I25.10 Gout M10.9 (3) HTN (hypertension) Hypertension type: unspecified Qualified Code(s): I10 - Essential (primary) hypertension
[2023-01-05] MEDS: ALBUT/IPRATROP 3MG/0.5MG NEB 3 ML VIAL NEB SCH ×4 (06:51→19:33)
[2023-01-05] MEDS: CYANOCOBALAMIN (B-12) 2,500 MCG TABLET PO SCH (07:57)
[2023-01-05] MEDS: dilTIAZem HCL 30 MG TAB PO SCH ×4 (07:57→20:13)
[2023-01-05] MEDS: allopurinoL 100 MG TAB PO SCH (07:57)
[2023-01-05] MEDS: METOPROLOL TARTRATE 25 MG TAB PO SCH ×2 (07:57→20:15)
[2023-01-05] MEDS: CHOLECALCIFEROL 1,000 UNITS 25 MCG TAB PO SCH (07:57)
[2023-01-05] MEDS: SODIUM CHLORIDE 0.65% NA SOLN 45 ML (OCEAN) SCH ×2 (07:58→20:13)
[2023-01-05] MEDS: FLUTICASONE/VILANTEROL 200/25MCG 14 PUFFS/INHALER INH SCH (07:58)
[2023-01-05 09:00] LABS: Hematocrit (blood only) 48.2 % (37.0-47.0); Immature Granulocytes # (auto) 0.02 K/uL (0.01-0.20); Immature Granulocytes % (auto) 0.3 %; Lymphocytes # (auto) 0.57 K/uL (1.2-3.4); Lymphocytes % (auto) 9.9 %; Mean Corpuscular Hemoglobin 31.5 pg (25.0-34.0); Mean Corpuscular Hgb Conc 33.2 g/dL (32.0-36.0); Mean Corpuscular Volume 94.9 fL (80.0-100.0); Mean Platelet Volume 10.4 fL (9.4-12.4); Monocytes # (auto) 0.15 K/uL (0.11-0.59); Monocytes % (auto) 2.6 %; Neutrophils # (auto) 4.99 K/uL (1.40-6.50); Neutrophils % (auto) 87.2 %; Platelet Count 141 K/uL (130-400); RDW Coefficient of Variation 14.2 % (11.5-14.5); RDW Standard Deviation 49.6 fL (36.4-46.3); Red Blood Count 5.08 M/uL (4.20-5.40); White Blood Count 5.73 K/ul (4.8-10.8)
[2023-01-05 09:19] LABS: BUN Creatinine Ratio 21.7 (10-20); Calcium 9.5 mg/dl (8.6-10.3); Creatinine Clr Calc Pharmacy 41.7 ml/min; Est GFR (Non-African American) 55.2 ml/min; Potassium 4.1 mmol/L (3.5-5.1)
[2023-01-05 09:35] LABS: INR 3.6 (0.9-1.1); Prothrombin Time 36.1 Seconds (9.0-12.0)
[2023-01-05] MEDS: predniSONE 50 MG TAB PO SCH (09:57)
--- NOTE | 2023-01-05 11:28 | Medical Student Progress Note ---
Date of Service January 05, 2023 Assessment & Plan (1) Hypoxic: Plan: Corina Miller is an 87 year old female, with PMH of Afib and asthma not on maintenance inhalers, who presented to the ER yesterday 01/04 with shortness of breath, progressively worsening over the last 3 weeks. - Aim O2 sats > 90% - Secondary to asthma exacerbation with component of mild fluid overload - Trialed talking with patient, with removal of O2, during which she satted 89- 90%. Satting 90-92% with 2L O2. - Will consider ambulatory pulse ox once patient is satting > 90% on RA at rest - Baseline not on oxygen at home - Attempt lasix dose as below (2) Asthma exacerbation: Plan: -Suspect asthma exacerbation might have been prompted by seasonal allergies -Duonebs QID scheduled -Solu-medrol given in ER, started prednisone 50mg PO daily 01/05 -Continue Breo Ellipta - possibly needs to take regularly as outpatient -Azithromycin 500mg PO discontinued due to no infection noted (3) Chronic diastolic heart failure: Plan: -Per chart review of cardiology notes, patient has history of chronic diastolic heart failure. -Utilizes lasix 4-5 times per year, but otherwise is not on pharmacotherapy. -Suspect her shortness of breath could also be d/t CHF exacerbation. Will give patient 20 mg PO lasix and monitor for improvement of sx. (4) HTN (hypertension): Plan: Continue metoprolol and diltiazem Hypertension type: unspecified Qualified Code(s): I10 - Essential (primary) hypertension (5) Afib: Plan: Rate controlled, continue metoprolol and diltiazem Anticoagulation with warfarin, repeat INR in AM (6) CAD (coronary artery disease): Plan: Continue metoprolol at home dose. (7) Gout: Plan: Continue allopurinol at home dose. Plan VTE Prophylaxis - warfarin Diet - heart healthy Disposition - admit to med/surg tele Admission and Anticipated Discharge Date Admission Date: January 04, 2023 Supervising Attestation Medical Student Supervision Note: I was personally present during medical student patient encounter and indep endently interviewed and examined the patient and verified the reeves history and physical, reviewed labs and image studies, discussed the case with Rachelle Márquez and agree with the findings and care plan. Acute hypoxic resp failure sec to asthma exacerbation with probable acute exacerbation of chronic diastolic heart failure sec to a fib tachycardia - -- continue IV steroids, nebs, inhalers. -- resumed prn home dose of IV lasix. Beto Miller is an 87 year old female, with PMH of Afib and asthma not on maintenance inhalers, who presented to the ER yesterday 01/04 with shortness of breath, progressively worsening over the last 3 weeks. She received solu-medrol given in ER, and will be receiving duonebs (ipratropium / albuterol), prednisone 50mg PO daily, Breo Ellipta (Fluticasone furoate / Vilanterol), and Azithromycin 500mg. Reports she is feeling about the same SOB today, but she has not been walking or doing anything active to better assess her level of SOB. At home, she hasn't been able to do anything around the house for the last 3 weeks without getting SOB and fatigued for the last 3 weeks. Baseline she is not on oxygen and currently requiring 2LPM O2 with O2sat 93%. Now, reports her rhinorrhea and postnasal drip have improved, but she is still experiencing intermittent dry cough worse at night. Also endorses palpitations, which are relieved by standing up and walking around. Reports intermittent nausea in the last week; also endorses constipation. No fevers, chills, sweats, chest pain, abdominal pain, v omiting, diarrhea, lightheadedness, dizziness. She had PFT's performed about 6 weeks ago, which showed an obstructive pattern. She uses a LEXIE inhaler at home, which she used to rarely use, but has been utilizing the inhaler once or twice per day in the last couple weeks. She is incontinent of urine at baseline and wears pads. No dysuria or hematuria recently. Regarding her history of asthma, she used symptoms of dry cough, but reports her chronic symptoms shifted to postnasal drip, so she felt she was experiencing sinus issues rather than asthma. 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 Their note revealed that patient has history of chronic diastolic heart failure and uses lasix about 4-5 times per year. Review of Systems Review of Systems: As per above Physical Exam Constitutional: WD/WN, vitals as above Eyes: conjunctivae normal ENMT: external ear and nose normal, oropharynx normal Neck: trachea midline Respiratory: normal respiratory effort; no respiratory distress Auscultation: + wheezes (posterior expiratory wheezing); breath sounds present, no diminished lung sounds, no crackles and no rhonchi Cardiovascular: Rate/Rhythm: regular rate and + irregularly irregular Heart Sounds: no murmur Extremities: normal capillary refill and + pedal edema Gastrointestinal (Abdomen): normal bowel sounds, soft, nontender, no hepatosplenomegaly Skin: no rashes, warm and dry Neurologic: moves all extremities and awake; not confused Psychiatric: A+Ox3, euthymic affect Results & Data Vital Signs (Past 12 Hours) Vital Signs Temp Pulse Pulse Resp BP Pulse Ox O2 Del Method 01/05/23 07:54 36.3 C L 80 20 128/78 91 Nasal Cannula 01/05/23 06:52 74 16 94 Nasal Cannula 01/05/23 03:24 36.6 C 81 18 136/83 92 Room Air 01/04/23 23:44 36.4 C L 74 16 125/76 91 Nasal Cannula 01/04/23 23:35 80 01/04/23 23:34 92 H O2 Flow Rate 01/05/23 07:54 2 01/05/23 06:52 1 01/05/23 03:24 01/04/23 23:44 2 01/04/23 23:35 01/04/23 23:34 Laboratory Results 01/05/23 01/05/23 01/05/23 07:35 07:35 07:35 WBC 5.73 RBC 5.08 Hgb 16.0 Hct 48.2 H MCV 94.9 MCH 31.5 MCHC 33.2 RDW Std Deviation 49.6 H RDW Coeff of Andrews 14.2 Plt Count 141 MPV 10.4 Immature Gran % (Auto) 0.3 Neut % (Auto) 87.2 Lymph % (Auto) 9.9 Bertie % (Auto) 2.6 Eos % (Auto) 0.0 Baso % (Auto) 0.0 Neut # (Auto) 4.99 Lymph # (Auto) 0.57 L Bertie # (Auto) 0.15 Eos # (Auto) 0.00 Baso # (Auto) 0.00 Immature Gran # (Auto) 0.02 PT 36.1 H INR 3.6 H Sodium 136 Potassium 4.1 Chloride 103 Carbon Dioxide 25 Anion Gap 8 BUN 20 Creatinine 0.92 Est Cr Clr Drug Dosing 41.7 Est GFR ( Amer) 64.0 Est GFR (Non-Af Amer) 55.2 BUN/Creatinine Ratio 21.7 H Glucose 137 H Calcium 9.5
[2023-01-05] MEDS ORDERED: WARFARIN SOD 2 MG TAB PO SCH (16:00)
[2023-01-05] MEDS ORDERED: FUROSEMIDE 20 MG TAB PO ONE (18:09)
[2023-01-06] MEDS ORDERED: FAMOTIDINE 20 MG in SYRINGE 3 ML IV PRN (02:38)
[2023-01-06] MEDS: ALBUT/IPRATROP 3MG/0.5MG NEB 3 ML VIAL NEB SCH ×4 (07:19→19:14)
[2023-01-06] MEDS: FLUTICASONE/VILANTEROL 200/25MCG 14 PUFFS/INHALER INH SCH (08:20)
[2023-01-06] MEDS: SODIUM CHLORIDE 0.65% NA SOLN 45 ML (OCEAN) SCH ×2 (08:20→21:18)
[2023-01-06] MEDS: METOPROLOL TARTRATE 25 MG TAB PO SCH ×2 (08:21→21:15)
[2023-01-06] MEDS: allopurinoL 100 MG TAB PO SCH (08:21)
[2023-01-06] MEDS: CHOLECALCIFEROL 1,000 UNITS 25 MCG TAB PO SCH (08:21)
[2023-01-06] MEDS: predniSONE 50 MG TAB PO SCH (08:21)
[2023-01-06] MEDS: dilTIAZem HCL 30 MG TAB PO SCH ×4 (08:21→21:15)
[2023-01-06] MEDS: LORATADINE 10 MG TAB PO SCH (08:24)
[2023-01-06] MEDS: FLUTICASONE PROPIONATE NA SPR 16 GM BTL SCH ×2 (08:25→21:15)
[2023-01-06 09:20] LABS: Hematocrit (blood only) 47.7 % (37.0-47.0); Mean Corpuscular Hemoglobin 31.4 pg (25.0-34.0); Mean Corpuscular Hgb Conc 33.5 g/dL (32.0-36.0); Mean Corpuscular Volume 93.5 fL (80.0-100.0); Mean Platelet Volume 10.6 fL (9.4-12.4); Platelet Count 167 K/uL (130-400); RDW Coefficient of Variation 14.6 % (11.5-14.5); RDW Standard Deviation 50.4 fL (36.4-46.3); White Blood Count 13.01 K/ul (4.8-10.8)
[2023-01-06 09:49] LABS: BUN Creatinine Ratio 24.8 (10-20); Calcium 9.6 mg/dl (8.6-10.3); Creatinine Clr Calc Pharmacy 32.8 ml/min; Est GFR (African American) 47.8 ml/min; Est GFR (Non-African American) 41.3 ml/min; Potassium 3.9 mmol/L (3.5-5.1)
[2023-01-06 09:59] LABS: INR 4.2 (0.9-1.1); Prothrombin Time 41.7 Seconds (9.0-12.0)
--- NOTE | 2023-01-06 10:12 | Hospitalist Progress Note ---
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 Hypoxia -- at home, does not have requirement - Suspect largely driven by asthma but also with component of acute HFpEF - Asthma treatment as below - Lasix 20mg qAM - seems to be improving with this - 2-step/ambulatory pulse ox when appropriate - Goal SpO2 >90% - Will require 2-step prior to discharge Moderate Persistent Asthma with Exacerbation - Suspect asthma exacerbation might have been prompted by seasonal allergies - Duonebs QID scheduled - Prednisone 50mg daily -- continue through 01/09, consider longer at lower dose PRN - Continue Breo Ellipta - possibly needs to take regularly as outpatient - Azithromycin 500mg PO discontinued due to no infection noted HFpEF -- BNP elevated >450 - History of chronic atrial fibrillation and known HFpEF per H records; though no recent TTE to review. Utilizes Lasix 4-5 times per year, but otherwise is not on pharmacotherapy. - Cardiomegaly noted on CXR and BNP at 452 on arrival here; also noted to be +3kg since July admission on arrival - Suspect component of acute HFpEF contributing to appearance given improvement with Lasix and mild features of hypervolemia on exam - Check TTE - Lasix 20mg PO daily -- responding well - Continue metoprolol - Monitor BMP Chronic AFib - Rate controlled. Continue metoprolol, warfarin Supratherapeutic INR - Hold Warfarin dose and resume 01/07 CAD - Noted on chart though per review of cardiology note, no significant disease appreciated on cath in 2008 - Continue metoprolol - May wish to consider initiation of statin as an outpatient Gout - Allopurinol ongoing VTE Prophylaxis - warfarin Diet - heart healthy Disposition - admit to med/surg tele Code - full code (2) Asthma exacerbation: (3) Chronic diastolic heart failure: (4) HTN (hypertension): (5) Afib: (6) CAD (coronary artery disease): (7) Gout: Admission and Anticipated Discharge Date Admission Date: January 04, 2023 Subjective NAEO. Feeling a little better at rest, still worried about what it will be like to walk around. No CP/palpitations/lightheadedness. Review of Systems Review of Systems: as per HPI Physical Exam Physical Exam: General: 87-year old female who is alert, oriented, and is in NAD.. HEENT: NCAT. - Eyes - Sclera are white, anicteric, and without injection. - Mouth - MMM - Neck - supple, no appreciable JVD Cardiac: Normal rate and regular rhythm; S1 and S2 present with no murmur detected Pulmonary: Good respiratory effort with symmetric expansion of the chest. No use of accessory muscles. Lungs demonstrated end-expiratory wheezes best heard at the bases bilaterally Abdominal: Normoactive bowel sounds. Abdomen was soft, nondistended, and non- tender to palpation. Extremities: Upper and lower extremities are warm and well perfused. 1+ peripheral edema in the lower extremities bilaterally Results & Data Results & Data Vital Signs (Past 12 Hours) Vital Signs Temp Pulse Resp BP BP Pulse Ox O2 Del Method 01/06/23 09:35 93 Room Air 01/06/23 09:25 Room Air 01/06/23 08:18 36.4 C L 73 18 144/82 H 95 Nasal Cannula 01/06/23 07:20 78 16 90 Nasal Cannula 01/06/23 03:21 36.5 C 68 18 119/73 91 Nasal Cannula 01/05/23 22:40 36.4 C L 90 16 120/73 91 Nasal Cannula O2 Flow Rate 01/06/23 09:35 01/06/23 09:25 01/06/23 08:18 2 01/06/23 07:20 2 01/06/23 03:21 2 01/05/23 22:40 2 Resident Activity Tracking Resident Involvement: Resident Care Provided Care Provided: Adult Hospital Medicine (4) HTN (hypertension) Hypertension type: unspecified Qualified Code(s): I10 - Essential (primary) hypertension
[2023-01-06] MEDS ORDERED: FUROSEMIDE 20 MG TAB PO STA (10:13)
[2023-01-06] MEDS ORDERED: FAMOTIDINE 20 MG TAB PO PRN (13:03)
--- NOTE | 2023-01-06 14:15 | XCELERA ---
[id number] [id number]
[2023-01-06] MEDS ORDERED: OPTIRAY 320 500ml IV ONE (15:23)
--- NOTE | 2023-01-06 15:52 | CT Scan Report ---
CT ANGIOGRAM OF THE CHEST CLINICAL HISTORY: Hypoxia. COMPARISON STUDY: Chest x-ray dated 01/04/2023. Chest CT dated 08/15/2008. TECHNIQUE: Following the IV administration of 114 cc of Optiray 320, CT angiogram of the chest was pe rformed from the upper abdomen to the thoracic inlet utilizing the pulmonary embolus protocol. Images are reviewed in the axial, sagittal, and coronal planes. 3-D MIPS images are created and assessed. I V contrast was administered without complication. A dose lowering technique was utilized adhering to the principles of ALARA. The examination is degraded by motion artifact. CT DOSE: 701.09 mGy.cm FINDINGS: Thyroid: Imaged portions of the thyroid gland are normal in size and attenuation. Thoracic aorta: There is atherosclerotic calcification of the thoracic aorta. There is mild ectasia o f the ascending thoracic aorta which measures up to 3.8 cm in diameter. The remainder of the thoracic aorta is normal in caliber, and the arch demonstrates bovine variant anatomy. The thoracic aorta is not opacified. Pulmonary vasculature: The main pulmonary arteries are dilated indicating pulmonary artery hypertensi on. There are no filling defects identified in main, lobar, or segmental pulmonary branches to sugges t pulmonary embolus. Heart: The heart is enlarged and without pericardial effusion. Lungs and pleural spaces: Evaluation of the lung parenchyma is moderately degraded by motion artifact . There is no airspace consolidation typical for pneumonia. Trace pleural effusions are identified. T he trachea and central airways are clear. Pleural-based nodularity in the right middle lobe on image #115 is unchanged. There is a 4 mm left lower lobe nodule seen on image #98. Scarring/atelectasis is present at both lung bases. Mediastinum: There is no mediastinal lymphadenopathy. Mora: Clear. Axillae: There is no axillary lymphadenopathy. Upper abdomen: There is a small hiatal hernia. Partially visualized upper abdominal viscera is otherw ise grossly unremarkable. Skeletal structures: The skeletal structures are osteopenic. Degenerative change and hyperkyphosis is noted in the thoracic spine. No lytic or blastic bony lesions are seen. Arthritic change is noted in the shoulders. IMPRESSION: 1. There is no evidence of pulmonary embolus in the main, lobar, or segmental pulmonary arteries. 2. Cardiomegaly with evidence of pulmonary artery hypertension. 3. Trace pleural effusions. 4. There is no airspace consolidation typical for pneumonia. 5. Additional findings as above. ACT 112: Negative or not required by law. Electronically signed by: Yoni Contreras M.D. 01/06/2023 3:50 PM
[2023-01-06 18:09] LABS: BUN Creatinine Ratio 22.9 (10-20); Calcium 9.7 mg/dl (8.6-10.3); Creatinine Clr Calc Pharmacy 29.3 ml/min; Est GFR (African American) 41.7 ml/min; Potassium 4.6 mmol/L (3.5-5.1)
[2023-01-06] MEDS: SIMVASTATIN 20 MG TAB PO SCH (21:16)
[2023-01-07] MEDS: ALBUT/IPRATROP 3MG/0.5MG NEB 3 ML VIAL NEB SCH ×3 (06:58→19:31)
--- NOTE | 2023-01-07 07:40 | Hospitalist Progress Note ---
Date of Service January 07, 2023 Assessment & Plan (1) Hypoxic: Plan: Corina Miller is an 87 year old female, with PMH of Afib and asthma not on maintenance inhalers, who presented to the ER on 01/04 with progressively worsening shortness of breath over the 3 weeks [employer], with a presentation most consistent with asthma exacerbation compounded with [id number] HFpEF. Hypoxia -- at home, does not have requirement - Suspect largely driven by asthma but also with component of acute HFpEF - Asthma treatment as below - Lasix 20mg IV per cardiology - Goal SpO2 >90% - 2-step ordered: Will require 2L with ambulation. O2 script signed. Moderate Persistent Asthma with Exacerbation - Suspect asthma exacerbation might have been prompted by seasonal allergies - Duonebs QID scheduled - Prednisone 30mg daily -- continue through 01/09 - Continue Breo Ellipta - possibly needs to take regularly as outpatient [id number] HFpEF; Severe R Heart Dysfunction; Pulmonary HTN - Suspect component of [id number] HFpEF contributing to appearance given improvement with Lasix and mild features of hypervolemia on exam - History of chronic atrial fibrillation and known HFpEF per [facility] records; though no recent TTE to review. Utilizes Lasix 4-5 times per year, but otherwise is not on pharmacotherapy. - Cardiomegaly noted on CXR and BNP at 452 on arrival here; also noted to be +3kg since July admission on arrival - TTE demonstrating flattened septum, severe dilation of RV with reduced function, moderate MR, severe LA dilation, severe TR w/ severe RA dilation; RVSP 50-60; severe IVC dilation - CTA with vascular prominence, otherwise no PE, pulmonary processes - Mild obstructive disease on PFTs 06/2019 -- will need repeat studies as outpatient - Nocturnal pulse oximetry study ordered given pulmonary HTN - Given complexity of her cardiac disease, appreciate cardiology consultation - Continue metoprolol - Daily weights, I&Os Prerenal MARIAM -- Resolved - Baseline 0.9 - 1.1 - Developed following diuresis - Encourage PO intake Chronic AFib - Rate controlled. Continue metoprolol, warfarin - Severe LA dilation noted on TTE. Appreciate cardiology consultation, as above Supratherapeutic INR -- INR 3.2 on arrival --> 4.2 on 01/06 - Resume hold warfarin scheduling; held only on 01/06 ?CAD - Noted on chart here though per review of [facility] cardiology note, no significant disease appreciated on catheterization in 2008 - Continue metoprolol - On simvastatin. Would likely benefit from intensification to rosuvastatin and possibly ASA pending further work-up Gout - Allopurinol ongoing VTE Prophylaxis - warfarin Diet - heart healthy Disposition - admit to med/surg tele. Likely can go home 01/08. Code - full code (2) Asthma exacerbation: (3) Chronic diastolic heart failure: (4) HTN (hypertension): (5) Afib: (6) CAD (coronary artery disease): (7) Gout: Admission and Anticipated Discharge Date Admission Date: January 04, 2023 Supervising Physician Co-Signing Physician Notes Resident Physician Supervision Note: I independently interviewed and examined the patient and verified the reeves history and physical, reviewed labs and image studies and agree with resident findings and care plan. Subjective Feeling fine. Unchanged but not SOB - just when moving around. On clarification, says it has been way more than weeks since she started feeling winded -- much closer to >months+. No chest pain, palpitations, SOB. Review of Systems Review of Systems: as per HPI Physical Exam Physical Exam: General: 87-year old female who is alert, oriented, and is in NAD.. HEENT: NCAT. - Eyes - Sclera are white, anicteric, and without injection. - Mouth - MMM - Neck - supple, no appreciable JVD Cardiac: Normal rate and irregular rhythm Pulmonary: Good respiratory effort with symmetric expansion of the chest. No use of accessory muscles. Lungs demonstrated a lesser degree of end-expiratory whee zes today. Extremities: Upper and lower extremities are warm and well perfused. Trace peripheral edema in the lower extremities bilaterally Results & Data Results & Data Vital Signs (Past 12 Hours) Vital Signs Temp Pulse Pulse Resp BP Pulse Ox O2 Del Method 01/07/23 07:21 75 01/07/23 07:00 88 20 83 L Room Air 01/07/23 02:54 36.4 C L 69 18 130/83 92 Room Air 01/06/23 22:03 86 01/06/23 22:55 36.5 C 79 18 134/86 92 Room Air 01/06/23 23:03 Room Air Resident Activity Tracking Resident Involvement: Resident Care Provided Care Provided: Adult Hospital Medicine (4) HTN (hypertension) Hypertension type: unspecified Qualified Code(s): I10 - Essential (primary) hypertension
[2023-01-07] MEDS: METOPROLOL TARTRATE 25 MG TAB PO SCH ×2 (08:11→20:29)
[2023-01-07] MEDS: CHOLECALCIFEROL 1,000 UNITS 25 MCG TAB PO SCH (08:12)
[2023-01-07] MEDS: dilTIAZem HCL 30 MG TAB PO SCH ×4 (08:12→20:29)
[2023-01-07] MEDS: allopurinoL 100 MG TAB PO SCH (08:12)
[2023-01-07] MEDS: CYANOCOBALAMIN (B-12) 2,500 MCG TABLET PO SCH (08:12)
[2023-01-07] MEDS: FLUTICASONE PROPIONATE NA SPR 16 GM BTL SCH ×2 (08:13→20:29)
[2023-01-07] MEDS: FLUTICASONE/VILANTEROL 200/25MCG 14 PUFFS/INHALER INH SCH (08:13)
[2023-01-07] MEDS: SODIUM CHLORIDE 0.65% NA SOLN 45 ML (OCEAN) SCH ×2 (08:14→20:30)
[2023-01-07] MEDS: predniSONE 10 MG TABLET PO SCH (08:14)
[2023-01-07] MEDS: LORATADINE 10 MG TAB PO SCH (08:14)
[2023-01-07 08:24] LABS: Basophils # (auto) 0.01 K/uL (0-0.2); Basophils % (auto) 0.1 %; Hematocrit (blood only) 48.2 % (37.0-47.0); Hemoglobin 16.4 g/dl (12.0-16.0); Immature Granulocytes # (auto) 0.04 K/uL (0.01-0.20); Immature Granulocytes % (auto) 0.4 %; Lymphocytes # (auto) 1.17 K/uL (1.2-3.4); Mean Corpuscular Hemoglobin 31.4 pg (25.0-34.0); Mean Corpuscular Volume 92.2 fL (80.0-100.0); Mean Platelet Volume 10.5 fL (9.4-12.4); Monocytes # (auto) 0.96 K/uL (0.11-0.59); Monocytes % (auto) 9.9 %; Neutrophils # (auto) 7.53 K/uL (1.40-6.50); Neutrophils % (auto) 77.6 %; Platelet Count 158 K/uL (130-400); RDW Coefficient of Variation 14.5 % (11.5-14.5); Red Blood Count 5.23 M/uL (4.20-5.40); White Blood Count 9.71 K/ul (4.8-10.8)
[2023-01-07 08:30] LABS: BUN Creatinine Ratio 28.8 (10-20); Calcium 9.7 mg/dl (8.6-10.3); Creatinine Clr Calc Pharmacy 36.6 ml/min; Est GFR (African American) 55.2 ml/min; Est GFR (Non-African American) 47.6 ml/min
[2023-01-07 08:39] LABS: INR 2.9 (0.9-1.1); Prothrombin Time 29.5 Seconds (9.0-12.0)
--- NOTE | 2023-01-07 16:41 | Cardiology Consultation ---
Date of Consultation January 07, 2023 Assessment & Plan (1) Shortness of breath: (2) Afib: (3) Acute on chronic diastolic heart failure: (4) Valvular heart disease: (5) Right heart failure: (6) Pulmonary hypertension: Plan 1. Shortness of breath: Likely combination of intrinsic lung disease, pulmonary hypertension and heart failure with preserved ejection fraction. At rest she seems comfortable she was ambulatory briefly today and did not report limiting dyspnea. Her symptoms appear to have been improved in this regard. She did require some supplemental oxygen. 2. heart failure with preserved ejection fraction: It is difficult to gauge the contribution of diastolic heart failure to her symptoms. She has not affected any diuresis since she was hospitalized. Symptoms seem to have improved. She had an elevated BNP at the time of admission but this is not a re liable indicator of diastolic heart failure given her other comorbidities such as atrial fibrillation and right heart failure. Renal functions normal and it seems reasonable to try some diuresis monitoring her hemodynamics closely. Definitive evaluation would include right heart catheterization. For evidence of heart failure with preserved ejection fraction the addition of an SGLT 2 inhibitor could be considered 3. cardiomyopathy: She has evidence of pulmonary hypertension and associated right Sided dilation and reduced function. Curiously, she does not have much in the way of peripheral edema and liver function tests were normal at the time of admission suggesting she is fairly well compensated in this regard. Will attempt some diuresis, but treating her lung disease and diastolic heart failure will probably be most efficacious in improving right ventricular function. 4. Valvular heart disease: She has severe tricuspid regurgitation which is likely secondary to chamber dilation. I think less likely would be primary tricuspid regurgitation resulting in her right heart changes. Unlikely be a role for surgical intervention. Improving oxygenation, treating her underlying lung disease and managing diastolic heart failure will hopefully improve hemodynamics. 5. Pulmonary hypertension: Likely a combination of intrinsic lung disease with hypoxia and diastolic heart failure. Right heart catheterization would be diagnostic in this regard but not necessarily indicated depending on her clinical course. She was discovered to be hypoxic and has not been prescribed supplemental oxygen. She is being screened for obstructive sleep apnea. She will undergo diuresis for diastolic heart failure and may benefit from an SGLT 2 inhibitor in that regard. She does have evidence of reactive airway disease on her recent PFTs and perhaps more aggressive treatment of what is been described as asthma would be helpful. 6. Atrial fibrillation: Reportedly longstanding. On systemic anticoagulation with warfarin. Rate control appears to be adequate at least while sleeping. She did not have significantly elevated heart rates with activity. However, she has done very little activity since she has been admitted. Significantly elevated heart rates with activity or lack of chronotropic response could both contribute to her presenting symptoms. This can be monitored as her clinical condition improves. No indication for cardioversion or rhythm control strategy. History of Present Illness Reason for Consultation: echocardiogram, atrial fibrillation, dyspnea Requesting Physician: Casimiro Attending Physician: Sharri Hannon MD History of Present Illness the patient is an 87-year-old woman with a longstanding history of reported atrial fibrillation and heart failure with preserved ejection fraction who admitted to the hospital with symptoms of dyspnea. Patient states she has been short of breath for nearly a year. This tends to wax and wane in severity but apparently became more concerning over the course of the last week. She had a episode of severe dyspnea after bending over and working in her garden. The symptoms do tend to resolve with some rest. She also notes some paroxysmal dyspnea when at rest. She did not report associated chest pain, palpitations or dizziness. She did not report symptoms of presyncope or syncope. Rarely she will notice some rapid heartbeats, these tend to be fairly random and short- lived. In fact, the rapid heartbeats tend to resolve with activity. She has not noticed any lower extremity edema. She did not report overt orthopnea. She does have a chronic nonproductive cough. Allergies Allergy/AdvReac Type Severity Reaction Status Date / Time Sulfa (Sulfonamide Allergy Intermediate RASH/GI Verified 01/04/23 12:33 Antibiotics) UPSET mercury (elemental) Allergy Mild RASH Verified 01/04/23 12:33 Penicillins Allergy Mild RASH Verified 01/04/23 12:33 hydromorphone AdvReac Intermediate ACTED Verified 01/04/23 12:33 STRANGE NSAIDS (Non-Steroidal AdvReac Intermediate INTERNAL Verified 01/04/23 12:33 Anti-Inflamma BLEEDING Home Medications Medication Instructions Recorded Confirmed Type albuterol sulfate 90 mcg/actuation 2 puff inhalation QID PRN 03/20/21 01/04/23 History aerosol inhaler Shortness Of Breath Or Wheezing allopurinol 100 mg tablet 100 mg PO QAM 03/20/21 01/04/23 History cholecalciferol (vitamin D3) 25 25 mcg PO QAM 03/20/21 01/04/23 History mcg (1,000 unit) capsule (Vitamin D3) diltiazem HCl 30 mg tablet 30 mg PO QID 03/20/21 01/04/23 History metoprolol tartrate 25 mg tablet 25 mg PO BID 03/20/21 01/04/23 History simvastatin 20 mg tablet 20 mg PO Q OTHER DAY 03/20/21 01/04/23 History warfarin 2 mg tablet See Rx Instructions .Route .COMPLEX 03/20/21 01/04/23 History meclizine 12.5 mg tablet 12.5 mg PO Q6H PRN vertigo #10 tabs 03/23/21 01/04/23 Rx Vitamin B12 Tab 2,500 mcg PO Q OTHER DAY 01/04/23 01/04/23 History Patient History Medical History Afib on warfarin daily -follows w/ Dr Lai last visit 06/2022 CAD (coronary artery disease) COPD (chronic obstructive pulmonary disease) rarely needs inhaler Gout HTN (hypertension) Surgical History History of esophagogastroduodenoscopy (EGD) Hx of cardiac catheterization about 15 yrs ago, no stents- [facility] Hx of cholecystectomy Hx of colonoscopy Hx of hysterectomy Family History Other No family history of adverse response to anesthesia Social History Smoking Status: Never smoker Second Hand Exposure: No; Do You Dip or Chew Tobacco: No; Hx Alcohol Use: No Hx Substance Use: No Preferred Language: Lao Communication Ability: Effective Communication Tools: Other 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 No recent fevers or chills. Physical Exam Physical Exam: She is alert and oriented x3. Mood affect appear normal. She answered all questions appropriately. HEENT: Sclerae are anicteric. Pupils are equal and reactive to light and accommodation. Extraocular movements were intact. Neuro: Cranial nerves intact Neck: Examination of the submandibular region did not reveal any significant lymphadenopathy. Carotids are palpable bilaterally and free of bruits on auscultation. Mild jugular venous distention. The thyroid was not enlarged. Lungs: no rales. Some expiratory wheezing and upper airway sounds. She has normal respiratory effort without use of accessory muscles. There is normal pulmonary excursion. Cardiac: The rhythm was irregular. S1 and S2 were normal. Holosystolic murmur of variable intensity.. The PMI was not markedly displaced on palpation. Abdomen: The abdomen was soft and nontender. Extremities: Patient has bilateral radial pulses that are equal in intensity. There is no evidence cyanosis or clubbing. There was no evidence of significant peripheral edema bilaterally. Skin: There are no rashes noted on examination today. Results & Data Vital Signs (Past 12 Hours) Vital Signs Temp Pulse Pulse Pulse Pulse Pulse Pulse 01/07/23 11:32 36.5 C 82 01/07/23 10:17 81 78 79 67 01/07/23 08:00 01/07/23 07:46 36.4 C L 83 01/07/23 07:21 75 01/07/23 07:00 88 Resp Resp Resp Resp Resp BP Pulse Ox 01/07/23 11:32 20 141/91 H 92 01/07/23 10:17 20 20 18 18 01/07/23 08:00 01/07/23 07:46 18 135/87 91 01/07/23 07:21 01/07/23 07:00 20 83 L Pulse Ox Pulse Ox Pulse Ox Pulse Ox O2 Del Method O2 Flow Rate 01/07/23 11:32 Room Air 01/07/23 10:17 92 85 L 89 L 90 2 01/07/23 08:00 Room Air 01/07/23 07:46 Room Air 01/07/23 07:21 01/07/23 07:00 Room Air Laboratory Results Abnormal Lab Results 01/06/23 01/07/23 01/07/23 17:29 07:46 07:46 WBC 9.71 RBC 5.23 Hgb 16.4 H Hct 48.2 H MCV 92.2 MCH 31.4 MCHC 34.0 RDW Std Deviation 49.0 H RDW Coeff of Andrews 14.5 Plt Count 158 MPV 10.5 Immature Gran % (Auto) 0.4 Neut % (Auto) 77.6 Lymph % (Auto) 12.0 [place] % (Auto) 9.9 Eos % (Auto) 0.0 Baso % (Auto) 0.1 Neut # (Auto) 7.53 H Lymph # (Auto) 1.17 L [place] # (Auto) 0.96 H Eos # (Auto) 0.00 Baso # (Auto) 0.01 Immature Gran # (Auto) 0.04 PT INR Sodium 133 L 137 Potassium 4.6 4.0 Chloride 97 L 100 Carbon Dioxide 28 29 Anion Gap 8 8 BUN 30 H 30 H Creatinine 1.31 H 1.04 Est Cr Clr Drug Dosing 29.3 36.6 Est GFR ( Amer) 41.7 55.2 Est GFR (Non-Af Amer) 36.0 47.6 BUN/Creatinine Ratio 22.9 H 28.8 H Glucose 171 H 100 H Calcium 9.7 9.7 01/07/23 07:46 WBC RBC Hgb Hct MCV MCH MCHC RDW Std Deviation RDW Coeff of Andrews Plt Count MPV Immature Gran % (Auto) Neut % (Auto) Lymph % (Auto) [place] % (Auto) Eos % (Auto) Baso % (Auto) Neut # (Auto) Lymph # (Auto) [place] # (Auto) Eos # (Auto) Baso # (Auto) Immature Gran # (Auto) PT 29.5 H INR 2.9 H Sodium Potassium Chloride Carbon Dioxide Anion Gap BUN Creatinine Est Cr Clr Drug Dosing Est GFR ( Amer) Est GFR (Non-Af Amer) BUN/Creatinine Ratio Glucose Calcium Diagnostic Findings Echocardiogram dated 01/06/2023: Normal LV systolic function with an ejection fraction of 60 65%. Right ventricular pressure volume overload with moderate to severely dilated right ventricle with moderately reduced systolic function. Severe right atrial dilation with severe tricuspid regurgitation. Severe left atrial dilation with moderate mitral regurgitation. Mild aortic regurgitation. Elevated pulmonary pressures. Severely dilated IVC ECG Additional Comments: EKG obtained the time admission revealed atrial fibrillation with a slow ventricular response PG Care Time/CCT Total # of Minutes Spent Total Time Spent with Patient: Total time spent is greater than 50% in coordination of care (as documented) at patient's floor/unit and/or counseling patient: Coding Level of Care Code 94515 INT INP/OBS CARE 3/75MIN Diagnoses Shortness of breath R06.02 Afib I48.91 Acute on chronic diastolic heart failure I50.33 Valvular heart disease I38 Right heart failure I50.810 Pulmonary hypertension I27.20
[2023-01-07] MEDS: FUROSEMIDE INJ 20 MG/2 ML VIAL IV SCH (17:41)
[2023-01-08] MEDS: ALBUT/IPRATROP 3MG/0.5MG NEB 3 ML VIAL NEB SCH (07:11)
[2023-01-08 07:37] LABS: Chol HDL Ratio 1.9 (0-5)
[2023-01-08 07:50] LABS: Prothrombin Time 20.7 Seconds (9.0-12.0)
[2023-01-08 07:56] LABS: Estimated Average Glucose 120 mg/dl; Hemoglobin A1C 5.8 % (4.5-5.6)
[2023-01-08] MEDS: dilTIAZem HCL 30 MG TAB PO SCH (08:11)
[2023-01-08] MEDS: FLUTICASONE/VILANTEROL 200/25MCG 14 PUFFS/INHALER INH SCH (08:11)
[2023-01-08] MEDS: METOPROLOL TARTRATE 25 MG TAB PO SCH (08:11)
[2023-01-08] MEDS: predniSONE 10 MG TABLET PO SCH (08:12)
[2023-01-08] MEDS: LORATADINE 10 MG TAB PO SCH (08:12)
[2023-01-08] MEDS: CHOLECALCIFEROL 1,000 UNITS 25 MCG TAB PO SCH (08:12)
[2023-01-08] MEDS: FLUTICASONE PROPIONATE NA SPR 16 GM BTL SCH (08:12)
[2023-01-08] MEDS: allopurinoL 100 MG TAB PO SCH (08:12)
[2023-01-08] MEDS: FUROSEMIDE INJ 20 MG/2 ML VIAL IV SCH (08:13)
[2023-01-08] MEDS: SODIUM CHLORIDE 0.65% NA SOLN 45 ML (OCEAN) SCH (08:13)
--- NOTE | 2023-01-08 12:34 | Discharge Summary ---
Date of Service January 08, 2023 Admission HPI Per Admitting Provider Corina Miller is an 87 year old female who presents to the ER with shortness of breath. Progressively getting worse over the last 3 weeks. Associated nasal congestion and post nasal drip. No fever, chills. She has an unchanged dry cough. She has a history of asthma but is not on maintenance inhalers, modest improvement with albuterol which she is using regularly. Has not been on a course of steroids for this illness. Baseline she is not on oxygen and currently requiring 2LPM O2 in the ER to maintain O2 sats < 90%. Admission Exam Per Admitting Provider Constitutional: WD/WN, vitals as above Eyes: PERRL, conjunctivae normal, anicteric sclerae ENMT: external ear and nose normal, oropharynx normal Neck: trachea midline, no thyromegaly Respiratory: normal respiratory effort; no respiratory distress Auscultation: + wheezes (posterior expiratory wheezing); breath sounds present, no diminished lung sounds, no crackles, no rales and no rhonchi Cardiovascular: Rate/Rhythm: + bradycardic and + irregularly irregular Heart Sounds: no murmur Extremities: normal capillary refill and + pedal edema; no calf tenderness Gastrointestinal (Abdomen): normal bowel sounds, soft, nontender, no hepatosplenomegaly Musculoskeletal: no cyanosis or clubbing, extremities motor strength 5/5 Skin: no rashes, warm and dry Neurologic: moves all extremities and awake; not confused Psychiatric: A+Ox3, euthymic affect Principal Diagnosis multifactorial hypoxia (asthma exacerbation, HFpEF) Discharge Exam Constitutional: well appearing, no acute distress HEENT: normocephalic, no conjunctival injection CV: regular rhythm, no murmur, no LE edema Respiratory: Clear to auscultation bilaterally. No rhonchi, wheezes, or crackles. No increased work of breathing MSK: no gross deformities noted Skin: warm, dry, no rashes Neuro: alert, oriented, no FND noted Discharge Data Allergies Allergy/AdvReac Type Severity Reaction Status Date / Time Sulfa (Sulfonamide Allergy Intermediate RASH/GI Verified 01/04/23 12:33 Antibiotics) UPSET mercury (elemental) Allergy Mild RASH Verified 01/04/23 12:33 Penicillins Allergy Mild RASH Verified 01/04/23 12:33 hydromorphone AdvReac Intermediate ACTED Verified 01/04/23 12:33 STRANGE NSAIDS (Non-Steroidal AdvReac Intermediate INTERNAL Verified 01/04/23 12:33 Anti-Inflamma BLEEDING Consultations 01/04/23 11:35 ED Decision to Admit Stat 01/07/23 10:18 Consult Cardiology Routine Ordered Studies 01/06/23 14:50 CT for pulmonary embolism PE [CT angio chest PE protocol] Routine IMPRESSION: 1. There is no evidence of pulmonary embolus in the main, lobar, or segmental pulmonary arteries. 2. Cardiomegaly with evidence of pulmonary artery hypertension. 3. Trace pleural effusions. 4. There is no airspace consolidation typical for pneumonia. 5. Additional findings as above. Hospital Course (1) Hypoxic: Corina Miller is an 87 year old female, with PMH of Afib and asthma not on maintenance inhalers, who presented to the ER on 01/04 with progressively worsening shortness of breath over the 3 weeks [employer]AK[employer] OIL[employer], with a presentation most consistent with asthma exacerbation compounded with fjlhv-og-xttescy HFpEF. Acute respiratory failure with persistent new Hypoxia on discharge -- - Suspect largely driven by asthma but also with component of acute HFpEF, valvular ds - d/c w/ home oxygen 2L while walking Moderate Persistent Asthma with Exacerbation - Suspect asthma exacerbation might have been prompted by seasonal allergies - Duonebs QID scheduled - Prednisone 30mg daily -- continue 2 days after discharge - d/c w/ Breo Ellipta Twdow-fy-Ceozgwr HFpEF; Severe R Heart Dysfunction; Pulmonary HTN - Suspect component of rkpoe-nw-suqrvcs HFpEF on admission - Cardiomegaly noted on CXR and BNP at 452 on arrival here; also noted to be +3kg since July admission on arrival - TTE demonstrating flattened septum, severe dilation of RV with reduced function, moderate MR, severe LA dilation, severe TR w/ severe RA dilation; RVSP 50-60; severe IVC dilation - CTA with vascular prominence, otherwise no PE, pulmonary processes - most recent PFTs 11/2022 showed significant response to bronchodilators - Evaluated by Cardio - Further evaluation as outpatient - in hospital overnight pulse oximetry only showed 1 desat- may consider proper sleep study but likely low yield - Continue metoprolol - lasix 20 mg x3 times per week upon d/c - f/u with outpatient cardio; Prerenal MARIAM -- Resolved - Baseline 0.9 - 1.1 - Developed following diuresis - Encourage PO intake Chronic AFib - Rate controlled. Continue metoprolol, warfarin. - Per cardio - concern of possible lack of chronotropic response contributing to presentation. - Severe LA dilation noted on TTE - continue outpatient cardio f/u Supratherapeutic INR -- INR 3.2 on arrival --> 4.2 on 01/06 - warfarin held only on 01/06 - d/c home w/o alterations to schedule ?CAD - Noted on chart here though per review of [facility] cardiology note, no significant disease appreciated on catheterization in 2008 - Continue metoprolol - On simvastatin. VTE Prophylaxis - warfarin Diet - heart healthy Disposition - home with new O2 requirement Code - full code (2) Asthma exacerbation: (3) Chronic diastolic heart failure: (4) HTN (hypertension): (5) Afib: (6) CAD (coronary artery disease): (7) Gout: Total Time Total Time Spent Total Time Spent (In Minutes): as per attending attestation Discharge Plan Discharge Items Patient Disposition: Home - Self-Care Reason For Visit: ACUTE ASTHMA EXACERBATION Discharge Diagnosis: hypoxia d/t multiple factors (asthma, HFpEF) Activity: Resume your previous activity Non-emergency contact: Primary Care Provider and Battery Tester And Repairer Call non-emergency contact if: you have any medication questions and your symptoms worsen Follow-up/Referrals: Eric Rosa MD [Primary Care Provider] - (PLEASE CALL YOUR PRIMARY CARE PROVIDER TO SCHEDULE A DISCHARGE FOLLOW-UP APPOINTMENT WITHIN 7-10 DAYS) Diet: Heart Healthy Addtl Attending Provider Instructions: You were seen in [facility] for evaluation of shortness of breath. Upon arrival here, you underwent several tests to determine the cause your symptoms. You were noted to have fullness in the blood vessels surrounding your heart; this can sometimes reflect increased pressures within the lungs. We do suspect that some of this is due to your underlying asthma. We treated your symptoms like we treat an asthma exacerbation; thankfully, you responded quite well to these. Given concern for these elevated lung pressures, we did pursue imaging of your heart. This showed straining of your right heart, likely from the lung pressures. It also showed valve disease. You were evaluated by our cardiology team here, who recommended initiating regular lasix at home and discussing other medication changes with your primary care doctor. We evaluated your oxygen status overnight to look for signs of sleep apnea. You only had one event of low oxygen overnight- sleep apnea is most likely not a large contributing factor to the condition of your heart. However, you may want to discuss pursuing a formal sleep study with your primary care doctor to see if they believe it would be of benefit. Upon discharge, please note the following medication changes/additions: - START prednisone 30 mg, for the next 2 days, then stop - START Breo Ellipta inhaler -- take 1 puff each morning - START lasix 20 mg 3 times per week - NEEDED: Take Albuterol inhaler, every 4-6 hours, as needed for wheezing - We also recommend you utilize nasal fluticasone (Flonase) to help with allergy symptoms Please follow-up with your PCP within 1 week to review this visit. In the interim, if you have any continued or worsening shortness of breath, chest pain, feelings like you're going to pass out, new fevers, chills, etc. -- please seek medical evaluation. If your symptoms are severe, please report to the ED for immediate evaluation. Thank you for allowing us to participate in your care. Pending Studies at Discharge: No Stand-Alone Forms: My [facility], Smoking Cessation Medications and DC Order Prescriptions: New prednisone 10 mg Tablet 30 mg PO QAM 2 Days Qty: 6 0RF fluticasone furoate-vilanterol [Breo Ellipta] 200-25 mcg/dose Blister With Device 1 ea inhalation DAILY Qty: 60 2RF furosemide [Lasix] 20 mg tablet 20 mg PO 3XWK Qty: 30 0RF Continued allopurinol 100 mg tablet 100 mg PO QAM simvastatin 20 mg tablet 20 mg PO Q OTHER DAY Rx Instructions: pm warfarin 2 mg tablet See Rx Instructions .ROUTE .COMPLEX Rx Instructions: 3 mg; MON, WED, FRI; 2 MG ON OTHER DAYS albuterol sulfate 90 mcg/actuation HFA aerosol inhaler 2 puff INHALATION QID PRN (Reason: Shortness Of Breath Or Wheezing) diltiazem HCl 30 mg tablet 30 mg PO QID cholecalciferol (vitamin D3) [Vitamin D3] 25 mcg (1,000 unit) Capsule 25 mcg PO QAM metoprolol tartrate 25 mg tablet 25 mg PO BID meclizine 12.5 mg tablet 12.5 mg PO Q6H PRN (Reason: vertigo) Qty: 10 0RF Vitamin B12 Tab 2,500 mcg PO Q OTHER DAY Discharge Orders: Discharge Order (Routine); Ordered 01/08/23 Ordered By: Tona Newsome Admission Data Admit Date/Time: 01/04/23 11:52 Attending Provider: Sharri Hannon Admit Provider: Zachary Martin Primary Care Provider: Eric Rosa Other Providers: Zachary Martin ; Brodie Cadet Other Interventions: Discharge Summary Assessment (RN) Last Done: 01/08/23 12:43 Supervising Physician Co-Signing Physician Notes Resident Physician Supervision Note: I independently interviewed and examined the patient and verified the reeves history and physical, reviewed labs and image studies and agree with resident findings and care plan. Resident Activity Tracking Resident Involvement: Resident Care Provided Care Provided: Adult Hospital Medicine
== END 2023-01-08 14:47 | disposition home or self-care (01) | DRG 190 ==
LOC: ED 08:36 → EDINP 11:52 → SUATTDRO 11:52 → 2N 14:44
DX: I27.20 Pulmonary hypertension, unspecified; Z88.2 Allergy status to sulfonamides; J45.41 Moderate persistent asthma with (acute) exacerbation; R79.1 Abnormal coagulation profile; N17.9 Acute kidney failure, unspecified; I50.33 Acute on chronic diastolic (congestive) heart failure; J44.9 Chronic obstructive pulmonary disease, unspecified; M10.9 Gout, unspecified; I42.9 Cardiomyopathy, unspecified; I25.10 Atherosclerotic heart disease of native coronary artery without angina pectoris; I11.0 Hypertensive heart disease with heart failure; Z88.0 Allergy status to penicillin; I48.20 Chronic atrial fibrillation, unspecified

== ENCOUNTER 2023-07-29 09:19 | Inpatient (IN) ==
--- OUTSIDE RECORDS SUMMARY | 2023-07-29 09:23 | External Medical Summary | Continuity of Care Document ---
Author Name Unknown Organization [facility] [address] Address [address] [place], [place] [id number] Care Team Providers Care Post Anesthesia Room Nurse Name Role Phone Eric Rosa Primary Care Physician [phone] [phone] [facility]counter [facility] [id number] Date(s): 03/09/23 - 03/09/23 [facility] [address] [facility] [address] [phone] Encounter Diagnosis Chronic atrial fibrillation, unspecified(Final) - Discharge Disposition: Home or Self Care Attending Physician: MD Rosa Juan Referring Physician: MD Rosa Juan Allergies, Adverse Reactions, Alerts Substance Reaction Severity Status penicillin Rash Active sulfa drugs UTI Active Aleve stuck in throat Active Vioxx unknown Active Mercuroclear Rash Active NSAIDS (nonsteroidal anti-inflammatory agents) rectal bleeding Active Immunizations Given and Recorded Vaccine Date Status Refusal Reason influenza virus vaccine, inactivated 06/29/22 Give n influenza virus vaccine, inactivated 04/19/21 Give n influenza virus vaccine, inactivated 06/23/20 Give n influenza virus vaccine, inactivated 06/19/19 Give n influenza virus vaccine, inactivated 07/20/18 Give n influenza virus vaccine, inactivated 04/26/17 Give n influenza virus vaccine, inactivated 07/13/16 Give n influenza virus vaccine, inactivated 07/13/15 Give n influenza virus vaccine, inactivated 06/24/14 Give n influenza virus vaccine, inactivated 06/08/12 Give n SARS-CoV-2 (COVID-19) mRNA-1273 vaccine 11/05/20 R ecorded SARS-CoV-2 (COVID-19) mRNA-1273 vaccine 10/12/20 R ecorded pneumococcal 13-valent vaccine 06/24/14 Given zoster vaccine live 12/15/12 Recorded tetanus/diphtheria/pertuss, acel (Tdap) 12/11/12 G iven pneumococcal 23-valent vaccine 03/19/06 Recorded Medications albuterol CFC free 90 mcg/inh MDI Start: 11/18/22 16:38:00 EDT, 2 puff, inhaled, qid, Disp# 1 each, Refills: 3, use with spacer chamber, Note to Pharmacy: please instruct, observe, and correct MDI technique, PRN: as needed for wheezing, Pharmacy: [email or web address] #[id number] Start Date: 11/18/22 Status: Ordered allopurinol 100 mg oral tablet Start: 02/04/22 17:13:00 EDT, See Instructions, Disp# 90 tab, Refills: 3, take 1 tablet by mouth once daily, Pharmacy: [email or web address] Start Date: 02/04/22 Status: Ordered Breo Ellipta 200 mcg-25 mcg/inh inhalation powder Start: 01/10/23 10:44:00 EDT, 1 puff, inhaled, Daily, Disp# 1 each Start Date: 01/10/23 Stop Date: 02/09/23 Status: Ordered desoximetasone 0.25% topical cream Start: 07/13/16 15:24:41, 1 appl, topical, bid, Disp# 60 g, Refills: 3, Pharmacy: [email or web address] Start Date: 07/13/16 Status: Ordered dilTIAZem 30 mg oral tablet Start: 05/02/22 14:50:00 EDT, See Instructions, Disp# 360 tab, Refills: 3, take 1 tablet by mouth four times a day, Pharmacy: [email or web address] #[id number] Start Date: 05/02/22 Status: Ordered furosemide 20 mg oral tablet Start: 02/24/23 11:24:00 EDT, See Instructions, Disp# 24 tab, Refills: 3, 1 tab PO twive a week, Pharmacy: [email or web address] #[id number] Start Date: 02/24/23 Status: Ordered inhaler spacer Start: 06/25/19 14:26:00 EST, See Instructions, Disp# 1 each, Refills: 0, inhaler spacer for ventolin, Pharmacy: [email or web address] Start Date: 06/25/19 Status: Ordered Metoprolol Tartrate 25 mg oral tablet Start: 02/08/22 16:53:00 EDT, See Instructions, Disp# 180 tab, Refills: 4, take 1 tablet by mouth twice a day, Pharmacy: [email or web address] [place] [address] Start Date: 02/08/22 Status: Ordered potassium chloride 20 mEq oral tablet, extended release Start: 06/25/19 14:26:00 EST, See Instructions, Disp# 30 tab, Refills: 11, 1 tab PO Daily as neededwith lasix for edema, Pharmacy: [facility] Start Date: 06/25/19 Status: Ordered simvastatin 20 mg oral tablet See Instructions, Disp# 90 tab, Refills: 3, take 1 tablet by mouth every other day., [facility] Start Date: 11/08/21 Status: Ordered spironolactone 25 mg oral tablet Start: 01/19/23 10:29:00 EDT, 1 tab, PO, Daily, Disp# 30 tab, Refills: 3, Pharmacy: [email or web address] #[id number] Start Date: 01/19/23 Status: Ordered Vitamin B12 Start: 08/25/10 13:20:11 EST, 2,500 mcg =, PO, Refills: 0, 1 tablet every other day., current medication from another provider Start Date: 08/25/10 Status: Ordered Vitamin D3 Start: 08/25/10 13:20:31, 1000 Int_Unit =, PO, Daily, Refills: 0, current medication from another provider Start Date: 08/25/10 Status: Ordered warfarin 2 mg oral tablet Start: 07/28/22 14:48:00 EST, See Instructions, Disp# 180 tab, Refills: 3, Take 3 mg Mon, Wed, Mon.Take 2 mg on other days., Pharmacy: [email or web address] #[id number] Start Date: 07/28/22 Status: Ordered Problem List Condition Confirmation Course Effective Dates Status H ealth Status Informant Asthma Confirmed Active CHF 1 Confirmed 08/25/10 Active ATRIAL FIBRILLATION 2 Confirmed 08/25/10 Active COPD 3 Confirmed 08/25/10 Active Disorder of skin AND/OR subcutaneous tissue Confirmed Active Disorder of the peripheral nervous system Confirmed Active Diverticulosis Confirmed Active Eosinophilic esophagitis Confirmed Active Polycythemia Confirmed Active Family history of premature CAD Confirmed Active GOUT Confirmed 08/25/10 Active Hernia, hiatal Confirmed 07/02/14 Active HYPERTENSION Confirmed 08/25/10 Active Impaired fasting glucose Confirmed 08/25/10 Active MIXED HYPERLIPIDEMIA Confirmed 08/25/10 Active Past history of procedure 4 Confirmed Active Senile hyperkeratosis Confirmed Active Weight disorder Confirmed Active 1sees Dr. Lai 2se[address] Lai 09:55 EST - ANIKET Pyle, Tamia Frazier pre and post spirometry Mild airflow obstruction without significant bronchodilator response [id number]: diverticulosis Procedures Procedure Date Related Diagnosis Body Site Status Echocardiogram 1 01/06/23 Complete d EKG finding 2 01/06/23 Completed Chest X-ray 3 01/04/[address] Angiogram of the chest 4 01/04/23 Completed X-ray 5 09/07/22 Completed Extraction of cataract of le ft eye and intraocular lens implant 07/13/[address] neck 6 03/20/[address] of head 7 03/20/[address] of head 8 03/20/21 Completed CXR - Chest X-ray 9 03/20/21 Compl eted CXR - Chest X-ray 10 02/12/18 Comp leted Cataract Surgery-Right eye 09/07/16 Completed Colonoscopy 11 08/24/15 Completed Endoscopy 12 07/02/14 Completed Shave biopsy of skin 07/08/13 Comp leted Cholecystectomy Completed Hysterectomy Completed Spirometry 13 Completed 1normal LV systolic fuction with an ejection fraction of 60-65%. right ventricular pressure volume overload with moderate to severely dilated right ventricle with moderately reduced systolic function.severe right atrial dilation with severe tricuspid regurgitation. severe left atrial dilation with moderate mitral regurgitation. mild aortic regurgitation. elevated pulmonary pressures. severely dilated IVC 2atrial fibrillation with a slow ventricular response 3No acute chest disease. Cardiomegaly is noted. 4IMPRESSION: 1. There is no evidence of pulmonary embolus in the main, lobar, or segmental pulmonary arteries. 2. Cardiomegaly with evidence of pulmonary artery hypertension. 3. Trace pleural effusions. 4. There is no airspace consolidation typical for pneumonia. 5. Additional findings as above. 5No fracture of subluxation within the lumbar spine. Degenerative changes as described above. 6Unremarkable CTA of the head and neck. 7Unremarkable CTA of the head and neck. 8No acute intracranial abnormality. 9Cardiomegaly without acute process. 101. Cardiomegaly. No other convincing evidence of acute cardiopulmonary disease. 11Diverticulosis in the sigmoid colon. Normal mucosa in the entire examined colon. Biopsied. 12Upper GI: 1) esophageal mucosal changes suspicious for eosinophilic esophagitis. Biopsied 2) LA Grade A reflux esophagitis 3) Hiatus hernia 13pre and post Mild airflow obstruction without significant bronchodilator response Results Laboratory List Name Date Prothrombin Time w/ INR (PROTIME WITH IN R) 03/09/23 Request to FAX Report (First Location) ( ACC NO TO BE FAXED) 03/09/23 Most recent to oldest [Reference Range]: 1 Phone No [phone] (03/09/23 10:35 AM) Faxed on: 03/10/23 09:24 (03/09/23 10:35 AM) INR [0.9-1.1] 2.8 2 *HI* (03/09/23 10:35 AM) PT [12.0-14.2 seconds] 29.6 seconds *HI* (03/09/23 10:35 AM) 1Result Comment: Testing Performed [facility], [address] [place] [id number] 2Result Comment: Suggested therapeutic range for low-intensity Coumadin therapy for venous thromboembolism is INR 2.0-3.0 (ex: atrial fibrillation, history of TIA/stroke). For high risk patients, the suggested therapeutic range is INR 2.5-3.5 (ex: mechanical prosthetic valves). Testing Performed By: [facility], [address] [place] [id number] Social History Social History Type Response Smoking Status Never smoked cigaret john Sex Female Patient Care team information Care Team Personnel Name: DO Alonzo Franklin J Position: Physician - Family Med Member Role: Lifetime Relationship Address: Address: [address] [address] Name: MD Rosa Juan Position: Physician - Family Med Member Role: Primary Care Provider Address: Address: [address] [place] [id number] [place] Care Team Related Persons Name: NICOLASA STONE Address: home [address] [id number] Name: NICOLASA STONE Address: home [address]
--- OUTSIDE RECORDS SUMMARY | 2023-07-29 09:23 | External Medical Summary | Continuity of Care Document ---
Author Name Unknown Organization [facility] [address] Address [address] [place], [place] [id number] Care Team Providers Care Field Crop Farm Worker Name Role Phone Eric Rosa Primary Care Physician [phone] [id number] Date(s): 07/14/23 - 07/14/23 [facility] [address] [facility] [address] [phone] Encounter Diagnosis Chronic atrial fibrillation, unspecified(Final) - [...] technique, PRN: as needed for wheezing, Pharmacy: [facility] #[id number] Start Date: 11/18/22 Status: Ordered allopurinol 100 mg oral tablet Start: 04/27/23 7:55:00 EDT, See Instructions, Disp# 90 tab, Refills: 3, take 1 tablet by mouth once daily, [facility]acy: [facility] #[id number] Start Date: 04/27/23 Status: Ordered Breo Ellipta 200 mcg-25 mcg/inh inhalation powder Start: 06/19/23 10:19:00 EST, 1 puff, inhaled, Daily, Disp# 60 blister, Refills: 11, Pharmacy: [facility] #[id number] Start Date: 06/19/23 Status: Ordered desoximetasone 0.25% topical cream Start: 07/13/16 15:24:41, 1 appl, topical, bid, Disp# 60 g, Refills: 3, Pharmacy: [facility] [place] [address] Start Date: 07/13/16 Status: Ordered dilTIAZem 30 mg oral tablet Start: 05/02/22 14:50:00 EDT, See Instructions, Disp# 360 tab, Refills: 3, take 1 tablet by mouth four times a day, [facility]acy: [facility] #[id number] Start Date: 05/02/22 Status: Ordered furosemide 20 mg oral tablet Start: 02/24/23 11:24:00 EDT, See Instructions, Disp# 24 tab, Refills: 3, 1 tab PO twive a week, Pharmacy: [facility] #[id number] Start Date: 02/24/23 Status: Ordered inhaler spacer Start: 06/25/19 14:26:00 EST, See Instructions, Disp# 1 each, Refills: 0, inhaler spacer for ventolin, Pharmacy: [facility] [place] [address] Start Date: 06/25/19 Status: Ordered Metoprolol Tartrate 25 mg oral tablet Start: 04/27/23 7:55:00 EDT, See Instructions, Disp# 180 tab, Refills: 0, take 1 tablet by mouth twice a day, Pharmacy: [facility] #[id number] Start Date: 04/27/23 Status: Ordered potassium chloride 20 mEq oral tablet, extended release Start: 06/25/19 14:26:00 EST, See Instructions, Disp# 30 tab, Refills: 11, 1 tab PO Daily as neededwith lasix for edema, Pharmacy: [facility] [place] [address] Start Date: 06/25/19 Status: Ordered simvastatin 20 mg oral tablet Start: 04/27/23 7:55:00 EDT, See Instructions, Disp# 90 tab, Refills: 3, take 1 tablet by mouth once daily, Pharmacy: [facility] #[id number] Start Date: 04/27/23 Status: Ordered spironolactone 25 mg oral tablet Start: 07/03/23 11:22:00 EST, 1 tab, PO, Daily, Disp# 90 tab, Refills: 3, Pharmacy: [facility] #[id number] Start Date: 07/03/23 Status: Ordered Vitamin B12 Start: 08/25/10 13:20:11 [...] Refills: 3, Take 3 mg Mon, Wed, Fri.Take 2 mg on other days., Pharmacy: [facility] #[id number] Start Date: 07/28/22 Status: Ordered Problem List [...] of premature CAD Confirmed Active GOUT Confirmed 1/19/11 Active Hernia, hiatal Confirmed 07/02/14 Active HYPERTENSION Confirmed 08/25/10 Active Hypoxia Confirmed Active Impaired fasting glucose Confirmed 08/25/10 Active Low back pain Confirmed Active MIXED HYPERLIPIDEMIA Confirmed 08/25/10 Active Past history of procedure 4 Confirmed Active Senile hyperkeratosis Confirmed Active Weight disorder Confirmed Active 1sees Dr. Lai 2sees Dr[address] Lai 09:55 EST - Leister, SHIP DESIGN TEACHER, Tamia M pre and post spirometry Mild airflow obstruction without significant bronchodilator response 94451: diverticulosis Procedures Procedure Date Related Diagnosis Body [...] Time w/ INR (PROTIME WITH IN R) 07/14/23 Most recent to oldest [Reference Range]: 1 INR [0.9-1.1] 2.3 1 *HI* (07/14/23 10:35 AM) PT [12.0-14.2 seconds] 25.2 seconds *HI* (07/14/23 10:35 AM) 1Result Comment: Suggested therapeutic range for low-intensity Coumadin therapy for venous thromboembolism is INR 2.0-3.0 (ex: atrial fibrillation, history of TIA/stroke). For high risk patients, the suggested therapeutic range is INR 2.5-3.5 (ex: mechanical prosthetic valves). Testing Performed By: Dept of Pathology [facility], [address] [place] [id number] Social History Social History Type Response Smoking Status Never smoked cigaret john Sex Female Patient Care team information Care Team Personnel Name: DO Alonzo Franklin J Position: Physician - Family Med Member Role: Lifetime Relationship Address: Address: [address] Name: MD Rosa Juan Position: Physician - Family Med Member Role: Primary Care Provider Address: Address: [address] [place] [address] Care Team Related Persons Name: NICOLASA STONE Address: home [address] [phone] Name: NICOLASA STONE Address: home [address]
--- OUTSIDE RECORDS SUMMARY | 2023-07-29 09:23 | External Medical Summary | Continuity of Care Document ---
Author Name Unknown Organization [facility] [address] [facility] Address [address] [place], [place] [id number] Care Team Providers Care Radio Journalist Name Role Phone Eric Rosa Primary Care Physician [phone] [id number] Date(s): 02/24/23 - 02/24/23 [facility] [address] [place] [address] [phone] Encounter Diagnosis Pulmonary HTN(Discharge Diagnosis) - 02/24/23 Discharge Disposition: Home or Self Care Attending Physician: CJ Ferguson Sarah A Referring Physician: CJ Ferguson Sarah A Allergies, Adverse Reactions, Alerts Substance Reaction Severity Status penicillin Rash Active sulfa drugs UTI Active Aleve stuck in throat Active Vioxx unknown Active Mercuroclear Rash Active NSAIDS (nonsteroidal anti-inflammatory agents) rectal bleeding Active Assessment and Plan Extracted from: Title:Cardiology Office Visit Note Author:CJ Loving rd, Sarah A Date:02/24/23 IMPRESSIONS: 1. Chronic atrial fibrillation with a rate control strategy on chronic Coumadin anticoagulation. 2. Hypertension. 3. Chronic diastolic heart failure, well controlled, rarely using diuretics. 4. No evidence of epicardial coronary disease by cardiac catheterization in 2008. [1] 5. Echocardiogram at [facility] on January 06 showing ejection fraction of 60 to 65%, flattened septum consistent with volume overload, right ventricle moderately to severely dilated, right ventricular systolic function moderately reduced, mild aortic regurgitation, moderate mitral regurgitation, severely dilated left atrium, severe tricuspid regurgitation, severely dilated right atrium, RVSP 50 to 60 mmHg Ms. Miller is stable. She is currently taking her furosemide three times a day and spironolactone which she is tolerating. Her heart rate is controlled. She is on Coumadin for stroke prophylaxis without s/s of bleeding. Her blood pressure is stable. She still doesn't have her supplemental oxygen. We will reach out to the ordering provider to see if they can follow up on this. She will return to the clinic in June Immunizations Given and Recorded Vaccine Date Status [...] technique, PRN: as needed for wheezing, [facility]acy: [facility] #[id number] Start Date: 11/18/22 Status: Ordered allopurinol 100 mg oral tablet Start: 02/04/22 17:13:00 EDT, See Instructions, Disp# 90 tab, Refills: 3, take 1 tablet by mouth once daily, [facility]: [facility] [place] [address] Start Date: 02/04/22 Status: Ordered Breo Ellipta 200 mcg-25 mcg/inh inhalation powder Start: 01/10/23 10:44:00 EDT, 1 puff, inhaled, Daily, Disp# 1 each Start Date: 01/10/23 Stop Date: 02/09/23 Status: Ordered desoximetasone 0.25% topical cream Start: 07/13/16 15:24:41, 1 appl, topical, bid, Disp# 60 g, Refills: 3, Pharmacy: [address] Start Date: 07/13/16 Status: Ordered dilTIAZem 30 mg oral tablet Start: 05/02/22 14:50:00 EDT, See Instructions, Disp# 360 tab, Refills: 3, take 1 tablet by mouth four times a day, Pharmacy: [id number] Start Date: 05/02/22 Status: Ordered furosemide 20 mg oral tablet Start: 02/24/23 11:24:00 EDT, See Instructions, Disp# 24 tab, Refills: 3, 1 tab PO twive a week, [facility] [id number] Start Date: 02/24/23 Status: Ordered inhaler spacer Start: 06/25/19 14:26:00 EST, See Instructions, Disp# 1 each, Refills: 0, inhaler spacer for ventolin, Pharmacy: [address] Start Date: 06/25/19 Status: Ordered Metoprolol Tartrate 25 mg oral tablet Start: 02/08/22 16:53:00 EDT, See Instructions, Disp# 180 tab, Refills: 4, take 1 tablet by mouth twice a day, Pharmacy: [address] Start Date: 02/08/22 Status: Ordered potassium chloride 20 mEq oral tablet, extended release Start: 06/25/19 14:26:00 EST, See Instructions, Disp# 30 tab, Refills: 11, 1 tab PO Daily as neededwith lasix for edema, Pharmacy: [address] Start Date: 06/25/19 Status: Ordered simvastatin 20 mg oral tablet See Instructions, Disp# 90 tab, Refills: 3, take 1 tablet by mouth every other day., Pharmacy: [address] Start Date: 11/08/21 Status: Ordered spironolactone 25 mg oral tablet Start: 01/19/23 10:29:00 EDT, 1 tab, PO, Daily, Disp# 30 tab, Refills: 3, Pharmacy: [facility] [id number] Start Date: 01/19/23 Status: Ordered Vitamin B12 [...] Fri.Take 2 mg on other days., Pharmacy: [facility] #[id number] Start Date: 07/28/22 Status: Ordered Mental Status 02/24/23 Barriers to Learning one year None evide nt Mandatory Health Literacy Documentation Yes Health Literacy Communication Barriers N ever Primary Language Kyrgyz Problem List Condition Confirmation Course Effective Dates [...] 2sees Dr. Lai 09:55 EST - ANIKET Pyle Whitney M pre and post spirometry Mild airflow obstruction without significant bronchodilator response 96960: diverticulosis Diagnosis Diagnosis Type Effective Dates Health Status Cl inical Service Informant Pulmonary HTN Discharge Diagnosis 02/24/23 Non-Specified Procedures Procedure Date Related Diagnosis Body Site [...] bronchodilator response Results Laboratory List Name Date Basic Metabolic Panel (BASIC METAB PANEL ) 02/24/23 NT-Pro BNP 02/24/23 Most recent to oldest [Reference Range]: 1 eGFR CKD-EPI [>60 mL/min/1.73 m2] 48 mL/ min/1.73 m2 1 *LOW* (02/24/23 11:37 AM) BNP, NT-Pro [<450 pg/mL] 2331 pg/mL *HI* (02/24/23 11:37 AM) Estimated CrCl 33.35 mL/min (02/24/23 12:19 PM) Anion Gap [5-14 mmol/L] 10 mmol/L (02/24/23 11:37 AM) BUN [7-20 mg/dL] 30 mg/dL *HI* (02/24/23 11:37 AM) Ca [8.4-10.2 mg/dL] 9.1 mg/dL (02/24/23 11:37 AM) Cl- [96-107 mmol/L] 105 mmol/L (02/24/23 11:37 AM) HCO3 [22-30 mmol/L] 25 mmol/L (02/24/23 11:37 AM) Cret [0.60-1.00 mg/dL] 1.11 mg/dL *HI* (02/24/23 11:37 AM) Glu [74-106 mg/dL] 109 mg/dL *HI* (02/24/23 11:37 AM) K [3.5-5.1 mmol/L] 4.5 mmol/L (02/24/23 11:37 AM) Na [137-145 mmol/L] 140 mmol/L (02/24/23 11:37 AM) 1Result Comment: Testing Performed By: [facility]ia [facility], [facility] [address]ilaria [address]aga, [place] [address] Vital Signs Most recent to oldest [Reference Range]: 1 Heart Rate 68 bpm (02/24/23 11:14 AM) Blood Pressure 128/64mmHg (02/24/23 11:14 AM) Cuff Pulse Pressure 64 mmHg (02/24/23 11:14 AM) BP Location # 1 Left Arm (02/24/23 11:14 AM) Social History Social History Type Response Smoking Status Never smoked cigaret john Sex Female Cardiology Outpatient Note * CJ Ferguson Sarah A: PERFORM, MODIFY Event Display: Cardiology Outpt Note Authored Date: [id number] Primary Care Provider MD Shelley, Eric Referring Provider CJ Ferguson Sarah A Chief Complaint Recently saw [facility], is supposed to have home O2, has not heard from them. Will send message to [facility] History of Present Illness Ms. Miller presents for follow up of pulmonary hypertension, chronic diastolic heart failure, chronic afib on Coumadin. She feels that she is stable. No worsening sob. She still does not have her portable oxygen. No chest pain or palpitations. No edema Review of Systems All other systems reviewed and negative except as discussed in the HPI Physical Exam Vitals & Measurements HR:68(Monitored) BP:128/64 SpO2:94% Physical Examination General: Alert and oriented, No acute distress. Respiratory: Lungs are clear to auscultation, Respirations are non-labored. Cardiovascular: Normal rate, Regular rhythm, No murmur, No edema Integumentary: Warm, Dry, [place] Neurologic: Alert, Oriented. Cognition and Speech: Speech clear and coherent. Psychiatric: Cooperative, Appropriate mood & affect. Assessment/Plan IMPRESSIONS: 1. Chronic atrial fibrillation with a rate control strategy on chronic Coumadin anticoagulation. 2. Hypertension. 3. Chronic diastolic heart failure, well controlled, rarely using diuretics. 4. No evidence of epicardial coronary disease by cardiac catheterization in 2008. [1] 5. Echocardiogram at [facility] on January 06 showing ejection fraction of 60 to 65%,flattened septum consistent with volume overload, right ventricle moderately to severely dilated, right ventricular systolic function moderately reduced, mild aortic regurgitation, moderate mitral regurgitation, severely dilated left atrium, severe tricuspid regurgitation, severely dilated right atrium, RVSP 50 to 60 mmHg Ms. Miller is stable. She is currently taking her furosemide three times a day and spironolactonewhich she is tolerating. Her heart rate is controlled. She is on Coumadin for stroke prophylaxis without s/s of bleeding. Her blood pressure is stable. She still doesn't have her supplemental oxygen. We will reach out to the ordering provider to see if they can follow up on this. She will return to the clinic in June Problem List/Past Medical History Ongoing Asthma ATRIAL FIBRILLATION CHF COPD Disorder of skin AND/OR subcutaneous tissue Disorder of the peripheral nervous system Diverticulosis Eosinophilic esophagitis Family history of premature CAD GOUT Hernia, hiatal HYPERTENSION Impaired fasting glucose MIXED HYPERLIPIDEMIA Past history of procedure Polycythemia Senile hyperkeratosis Weight disorder Historical Chronic heart failure Procedure/Surgical History Echocardiogram (01/06/2023)EKG finding (01/06/2023)CT Angiogram of the chest (01/04/2023)Chest X-ray (01/04/2023)X-ray (09/07/2022)Extraction of cataract of left eye and intraocularlens implant (07/13/2022)Angiogram ct of head (03/20/2021)CXR - Chest X-ray (03/20/2021)Angiogram ct neck (03/20/2021)CT of head (03/20/2021)CXR - Chest X-ray (02/12/2018)Cataract Surgery-Right eye (09/07/2016)Colonoscopy (08/24/2015)Endoscopy (07/02/2014)Shave biopsy of skin (07/08/2013)CholecystectomyHysterectomySpirometry Medications albuterol(albuterol CFC free 90 mcg/inh MDI), 2 puff, inhaled, qid, PRN, 3 refills allopurinol(allopurinol 100 mg oral tablet), See Instructions cholecalciferol(Vitamin D3), 1000 Int_Unit, PO, Daily cyanocobalamin(Vitamin B12), 2500 mcg, PO desoximetasone topical(desoximetasone 0.25% topical cream), 1 appl, topical, bid, 3 refills dilTIAZem(dilTIAZem 30 mg oral tablet), See Instructions fluticasone-vilanterol(Breo Ellipta 200 mcg-25 mcg/inh inhalation powder), 1 puff, inhaled, Daily furosemide(furosemide 20 mg oral tablet), 20 mg= 1 tab, PO, Daily, 3 refills inhalation accessory(inhaler spacer), See Instructions metoprolol(Metoprolol Tartrate 25 mg oral tablet), See Instructions, 4 refills potassium chloride(potassium chloride 20 mEq oral tablet, extended release), See Instructions, 11 refills simvastatin(simvastatin 20 mg oral tablet), See Instructions spironolactone(spironolactone 25 mg oral tablet), 25 mg= 1 tab, PO, Daily, 3 refills warfarin(warfarin 2 mg oral tablet), See Instructions Allergies Alevestuck in throat MercuroclearRash NSAIDS (nonsteroidal anti-inflammatory agents)rectal bleeding Vioxxunknown penicillinRash sulfa drugsUTI Social History Smoking Status Never smoked cigarettes Alcohol - Denies Alcohol Use 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 CABG - Coronary artery bypass graft: Brother (Dx at 54 years). Cardiovascular disease: Brother. Colon cancer..: Father. Heart attack: Brother. High Blood Pressure: Mother and Brother. Health Status Family Member(s) Family Member(s) Relationship: Mother, Age: 97 Years, Cause: cardiac stenosis Relationship: Brother, Age: 53 Years, Cause: OR Relationship: Father, Age: 58 Years, Cause: colon cancer Electronic Signature on File CC: Chan Alonzo DO [address] [address] CC: Josiane Martinez [address] [address] Electronically Reviewed/Signed by: CJ Mora Author Signature Dt/Tm:02/24/2023 01:36 PM [facility] Reading SAG Patient Care team information Care Team Personnel Name: DO Alonzo Franklin J Position: Physician - Family Med Member Role: Lifetime Relationship Address: Address: [address] [address] [place] Name: MD Rosa Juan Position: Physician - Family Med Member Role: Primary Care Provider Address: Address: [address] [place] [id number] [place] Care Team Related Persons Name: NICOLASA STONE Address: home [address] [phone] Name: NICOLASA STONE Address: home [address]
--- OUTSIDE RECORDS SUMMARY | 2023-07-29 09:23 | External Medical Summary | Continuity of Care Document ---
Author Name Unknown Organization [address] Address [address], [place] [id number] Care Team Providers Care Product Development Actuary Name Role Phone Eric Rosa Primary Care Physician [phone] [id number] Date(s): 03/15/23 - 03/15/[address] [address] [phone] Encounter Diagnosis Asthma(Discharge Diagnosis) - 03/14/23 ATRIAL FIBRILLATION(Discharge Diagnosis) - 03/14/23 CHF(Discharge Diagnosis) - 03/14/23 HYPERTENSION(Discharge Diagnosis) - 03/14/23 Impaired fasting glucose(Discharge Diagnosis) - 03/14/23 MIXED HYPERLIPIDEMIA(Discharge Diagnosis) - 03/14/23 Body mass index [BMI] 29.0-29.9, adult(Discharge Diagnosis) - 03/15/23 Hypoxia(Discharge Diagnosis) - 03/15/23 Low back pain(Discharge Diagnosis) - 03/15/23 Hoarseness(Discharge Diagnosis) - 03/15/23 Discharge Disposition: Home or Self Care Attending Physician: MD Rosa Juan Referring Physician: MD Rosa Juan Allergies, Adverse Reactions, Alerts Substance Reaction Severity Status penicillin Rash Active sulfa drugs UTI Active Aleve stuck in throat Active Vioxx unknown Active Mercuroclear Rash Active NSAIDS (nonsteroidal anti-inflammatory agents) rectal bleeding Active Assessment and Plan Extracted from: Title:Office Visit Note Author:MD Rosa Juan Shai e:03/15/23 1.Asthma Asthma: controlled, continue current medication. 2.ATRIAL FIBRILLATION rate controlled. on coumadin. 3.CHF stable. controlled, continue current medications/management. 4.HYPERTENSION HTN: chronic, controlled. Data: CMP, CBC, UA, records Goal: BP<140/90 Plan: continue current medications. continue Therapeutic life style modification (diet and exercise). 5.Impaired fasting glucose cont Therapeutic life style modification (diet and exercise). 6.MIXED HYPERLIPIDEMIA Hyperlipidemia: Status: chronic, controlled Data: lipid, CMP, records Goal: LDL<100 Plan: continue current medications. continue Therapeutic life style modification (diet and exercise). 7.Hypoxia I just message Dr. Martinez who submitted home O2 order and request to check into pt's home O2 arrangement. 8.Low back pain Pt is to call to request PT order once home and portable O2 is arranged. 9.Hoarseness refer to [facility] Check labs prior to next visit: lipid, CMP, HBA1C, TSH, CBC, UA BTO6 months for HM and f/u Time:Total time spent with this patient on day of evaluation including pre-visitchart review, [id number] visit, ordering, counseling, coordination of care and documentin_ minutes. Immunizations Given and Recorded Vaccine Date Status [...] technique, PRN: as needed for wheezing, Pharmacy: [facility] #[id number] Start Date: 11/18/22 Status: Ordered allopurinol 100 mg oral tablet Start: 02/04/22 17:13:00 EDT, See Instructions, Disp# 90 tab, Refills: 3, take 1 tablet by mouth once daily, Pharmacy: [facility] Start Date: 02/04/22 Status: Ordered Breo Ellipta 200 mcg-25 mcg/inh inhalation powder Start: 01/10/23 10:44:00 EDT, 1 puff, inhaled, Daily, Disp# 1 each Start Date: 01/10/23 Stop Date: 02/09/23 Status: Ordered desoximetasone 0.25% topical cream Start: 07/13/16 15:24:41, 1 appl, topical, bid, Disp# 60 g, Refills: 3, Pharmacy: [facility] Start Date: 07/13/16 Status: Ordered dilTIAZem 30 mg oral tablet Start: 05/02/22 14:50:00 EDT, See Instructions, Disp# 360 tab, Refills: 3, take 1 tablet by mouth four times a day, Pharmacy: [facility] #[id number] Start Date: 05/02/22 Status: Ordered furosemide 20 mg oral tablet Start: 02/24/23 11:24:00 EDT, See Instructions, Disp# 24 tab, Refills: 3, 1 tab PO twive a week, Pharmacy: [facility] [id number] Start Date: 02/24/23 Status: Ordered inhaler spacer Start: 06/25/19 14:26:00 EST, See Instructions, Disp# 1 each, Refills: 0, inhaler spacer for ventolin, Pharmacy: [facility] Start Date: 06/25/19 Status: Ordered Metoprolol Tartrate 25 mg oral tablet Start: 02/08/22 16:53:00 EDT, See Instructions, Disp# 180 tab, Refills: 4, take 1 tablet by mouth twice a day, Pharmacy: [facility] Start Date: 02/08/22 Status: Ordered potassium chloride 20 mEq oral tablet, extended release Start: 06/25/19 14:26:00 EST, See Instructions, Disp# 30 tab, Refills: 11, 1 tab PO Daily as neededwith lasix for edema, Pharmacy: [facility] Start Date: 06/25/19 Status: Ordered simvastatin 20 mg oral tablet See Instructions, Disp# 90 tab, Refills: 3, take 1 tablet by mouth every other day., Pharmacy: [facility] Start Date: 11/08/21 Status: Ordered spironolactone 25 mg oral tablet Start: 01/19/23 10:29:00 EDT, 1 tab, PO, Daily, Disp# 30 tab, Refills: 3, Pharmacy: [facility] #[id number] Start Date: 01/19/23 Status: Ordered Vitamin B12 [...] Mon.Take 2 mg on other days., Pharmacy: [facility] #[id number] Start Date: 07/28/22 Status: Ordered Mental Status 03/15/23 Barriers to Learning one year None evide nt Mandatory Health Literacy Documentation Yes Health Literacy Communication Barriers N ever Primary Language Japanese Problem List Condition Confirmation Course Effective Dates [...] Lai 09:55 EST - ANIKET Pyle, Tamia M pre and post spirometry Mild airflow obstruction without significant bronchodilator response 28578: diverticulosis Diagnosis Diagnosis Type Effective Dates Health Status Clinical Service Informant Asthma Discharge Diagnosis 03/14/23 ATRIAL FIBRILLATION Discharge Diagnosis 03/14/23 Impaired fasting glucose Discharge Diagnosis 03/14/23 CHF Discharge Diagnosis 03/14/23 HYPERTENSION Discharge Diagnosis 03/14/23 MIXED HYPERLIPIDEMIA Discharge Diagnosis 03/14/23 Body mass index [BMI] 29.0-29.9, adult Discharge Diagnosis 03/15/23 Non-Specified Hypoxia Discharge Diagnosis 03/15/23 Low back pain Discharge Diagnosis 03/15/23 Hoarseness Discharge Diagnosis 03/15/23 Procedures Procedure Date Related Diagnosis Body Site [...] Mild airflow obstruction without significant bronchodilator response Vital Signs Most recent to oldest [Reference Range]: 1 Height 160.1 cm (03/15/23 4:20 PM) Patient Weight 76.1 kg (03/15/23 4:20 PM) Body Mass Index 29.69 kg/m2 (03/15/23 4:20 PM) Heart Rate 50 bpm (03/15/23 4:20 PM) Respiratory Rate 18 br/min (03/15/23 4:20 PM) Blood Pressure 128/78mmHg (03/15/23 4:20 PM) Social History Social History Type Response Smoking Status Never smoked cigaret john Sex Female FCM Outpt Note * MD Rosa Juan: PERFORM Event Display: FCM Outpt Note Authored Date: Chief Complaint f/u- Having trouble with getting oxygen. Has been dealing with cardiology. Wants portable oxygen. History of Present Illness 2 month f/u. Having trouble with getting home oxygen. Has been dealing with cardiology. Wants portable oxygen. c/o hoarseness for a few years,not getting any better. Denied heartburn or sour taste in mouth. No significant change in health since last visit2 months ago. Use Breo for asthma. No SOB or cough, wheeze. takes lasix 3x/week. sees cardiology for CHF and AF. Wt stable No edema. back pain still bothersome, xray in - DDD. tried PT x 2 times , had to stop duet o asthma exacerbation that required inpatient care. Interested in restart PT after having home O2. Physical Exam Vitals & Measurements HR:50(Monitored) RR:18 BP:128/78 SpO2:92% HT:160.1cm WT:76.1kg WT:76.100kg(Dosing) BMI:29.69 PHQ2 Data(Data Documented on:03/15/2023 16:20) Emotional health assessment NEGATIVE GENERAL: A&Ox3. No acute distress. Affect and speech appropriate. + hoarseness HEENT: PERRLA, EOMI, Conjunctivae clear. OP clear. NECK: Supple, No lymphadenopathy. No carotid bruits. HEART: irreg irreg, normal S1, S2. No murmurs, gallops or clicks. LUNGS: breathing not labored, breathing sound clear, breathing sound equal bilaterally, no rales, no wheezing. ABDOMEN: Positive bowel sound, soft, nontender, non-distended. No hepatosplenomegaly noted. No mass. EXTREMITIES: No edema, clubbing or cyanosis. Assessment/Plan 1.Asthma Asthma: controlled, continue current medication. 2.ATRIAL FIBRILLATION rate controlled. on coumadin. 3.CHF stable. controlled, continue current medications/management. 4.HYPERTENSION HTN: chronic, controlled. Data: CMP, CBC, UA, records Goal: BP<140/90 Plan: continue current medications. continue Therapeutic life style modification (diet and exercise). 5.Impaired fasting glucose cont Therapeutic life style modification (diet and exercise). 6.MIXED HYPERLIPIDEMIA Hyperlipidemia: Status: chronic, controlled Data: lipid, CMP, records Goal: LDL<100 Plan: continue current medications. continue Therapeutic life style modification (diet and exercise). 7.Hypoxia I just message Dr. Martinez who submitted home O2 order and request to check into pt's home O2 arrangement. 8.Low back pain Pt is to call to request PT order once home and portable O2 is arranged. 9.Hoarseness refer to [facility] Check labs prior to next visit: lipid, CMP, HBA1C, TSH, CBC, UA BTO6 months for HM and f/u Time:Total time spent with this patient on day of evaluation including pre- visitchart review, [id number] visit, ordering, counseling, coordination of care and documentin_ minutes. 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 Exercise - Does not exercise Home/Environment Lives [...] stenosis Relationship: Brother, Age: 53 Years, Cause: MO Relationship: Father, Age: 58 Years, Cause: colon cancer Immunizations Vaccine Date Status influenza virus vaccine, inactivated 06/29/2022 Given influenza virus vaccine, inactivated 04/19/2021 Given SARS-CoV-2 (COVID-19) mRNA-1273 vaccine 11/05/2020 Recorded SARS-CoV-2 (COVID-19) mRNA-1273 vaccine 10/12/2020 Recorded influenza virus vaccine, inactivated 06/23/2020 Given influenza virus vaccine, inactivated 06/19/2019 Given influenza virus vaccine, inactivated 07/20/2018 Given influenza virus vaccine, inactivated 04/26/2017 Given influenza virus vaccine, inactivated - Not Given Comments : Already received vaccine influenza virus vaccine, inactivated 07/13/2016 Given influenza virus vaccine, inactivated 07/13/2015 Given pneumococcal 13-valent vaccine 06/24/2014 Given influenza virus vaccine, inactivated 06/24/2014 Given zoster vaccine live 12/15/2012 Recorded tetanus/diphtheria/pertuss, acel (Tdap) 12/11/2012 Given influenza virus vaccine, inactivated 06/08/2012 Given pneumococcal 23-valent vaccine 03/19/2006 Recorded Recommendations Health Maintenance Pending(in the next year) OverDue Medicare Annual Wellness Visit due10/01/21and every 1year Adult Influenza Vaccine due02/04/23and every 1year Due Adult COVID-19 Vaccination due03/15/23Unknown Frequency Adult Tdap/Td Vaccine due03/15/23Unknown Frequency Shingles Vaccine due03/15/23One-time only Due In Future Body Mass Index not due until03/14/24and every 1year Satisfied(in the past 1 year) Satisfied Adult Influenza Vaccine on06/29/22.Satisfied by MITZY Bray, Claudia Body Mass Index on03/15/23.Satisfied by MITZY Boston, Meka Lipid Screening on06/29/22.Satisfied by [employer], [employer] Electronic Signature on File Electronically Reviewed/Signed by: Eric Rosa MD Author Signature Dt/Tm:03/15/2023 05:05 PM Department of Family Medicine [facility] Patient Care team information Care Team Personnel Name: DO Alonzo Franklin J Position: Physician - Family Med Member Role: Lifetime Relationship Address: Address: [facility] [address] Name: MD Rosa Juan Position: Physician - Family Med Member Role: Primary Care Provider Address: Address: [address] [place] [address] Care Team Related Persons Name: NICOLASA STONE Address: home [address] [place] [id number] Name: NICOLASA STONE Address: home [address]
--- OUTSIDE RECORDS SUMMARY | 2023-07-29 09:23 | External Medical Summary | Continuity of Care Document ---
Author Name Unknown Organization [facility] [address] Address [address] [place], [place] [id number] Care Team Providers Care Ways Operator Name Role Phone Eric Rosa Primary Care Physician [phone] [id number] Date[facility]): [facility]/02/23 - 02/02/23 [facility] [address] [facility] [phone] Encounter Diagnosis Chronic atrial fibrillation, unspecified(Final) - [...] technique, PRN: as needed for wheezing, Pharmacy: [id number] Start Date: 11/18/22 Status: Ordered allopurinol 100 mg oral tablet Start: 02/04/22 17:13:00 EDT, See Instructions, Disp# 90 tab, Refills: 3, take 1 tablet by mouth once daily, Pharmacy: [facility] Start Date: 02/04/22 Status: Ordered Breo Ellipta 200 mcg-25 mcg/inh inhalation powder Start: 01/10/23 10:44:00 EDT, 1 puff, inhaled, Daily, Disp# 1 each Start Date: 01/10/23 Stop Date: 02/09/23 Status: Ordered desoximetasone 0.25% topical cream Start: 07/13/16 15:24:41, 1 appl, topical, bid, Disp# 60 g, Refills: 3, Pharmacy: [facility] Start Date: 07/13/16 Status: Ordered dilTIAZem 30 mg oral tablet Start: 05/02/22 14:50:00 EDT, See Instructions, Disp# 360 tab, Refills: 3, take 1 tablet by mouth four times a day, Pharmacy: [facility] [id number] Start Date: 05/02/22 Status: Ordered furosemide 20 mg oral tablet Start: 01/27/23 15:47:00 EDT, 1 tab, PO, Daily Start Date: 01/27/23 Status: Ordered inhaler spacer Start: 06/25/19 14:26:00 EST, See Instructions, Disp# 1 each, Refills: 0, inhaler spacer for ventolin, Pharmacy: [address] Start Date: 06/25/19 Status: Ordered Metoprolol Tartrate 25 mg oral tablet Start: 02/08/22 16:53:00 EDT, See Instructions, Disp# 180 tab, Refills: 4, take 1 tablet by mouth twice a day, Pharmacy: [facility] [place] [address] Start Date: 02/08/22 Status: Ordered potassium chloride 20 mEq oral tablet, extended release Start: 06/25/19 14:26:00 EST, See Instructions, Disp# 30 tab, Refills: 11, 1 tab PO Daily as neededwith lasix for edema, Pharmacy: [facility] Start Date: 06/25/19 Status: Ordered simvastatin 20 mg oral tablet See Instructions, Disp# 90 tab, Refills: 3, take 1 tablet by mouth every other day., [facility] [place] [address] Start Date: 11/08/21 Status: Ordered spironolactone 25 mg oral tablet Start: 01/19/23 10:29:00 EDT, 1 tab, PO, Daily, Disp# 30 tab, Refills: 3, Pharmacy: [facility] #[id number] Start Date: 01/19/23 Status: Ordered Vitamin B12 [...] Mon.Take 2 mg on other days., Pharmacy: [facility] #[id number] Start Date: 07/28/22 Status: Ordered Problem List [...] Confirmed 08/25/10 Active Impaired fasting glucose Confirmed 1/19/11 Active MIXED HYPERLIPIDEMIA Confirmed 08/25/10 Active Past history of procedure 4 Confirmed Active Senile hyperkeratosis Confirmed Active Weight disorder Confirmed Active 1sees Dr. Lai 2sees Dr. Lai 09:55 NILAY - ANIKET Pyle Whitney M pre and post spirometry Mild airflow obstruction without significant bronchodilator response 39494: diverticulosis Procedures Procedure Date Related Diagnosis Body [...] Time w/ INR (PROTIME WITH IN R) 02/02/23 Request to FAX Report (First Location) ( ACC NO TO BE FAXED) 02/02/23 Most recent to oldest [Reference Range]: 1 Phone No [phone] (02/02/23 1:53 PM) Faxed on: 02/03/23 08:32 (02/02/23 1:53 PM) INR [0.9-1.1] 1.9 2 *HI* (02/02/23 1:53 PM) PT [12.0-14.2 seconds] 21.6 seconds *HI* (02/02/23 1:53 PM) 1Result Comment: Testing Performed By: Dept of Pathology [facility] Hilaria Najera, [address] [place] [id number] 2Result Comment: Suggested therapeutic range for low-intensity Coumadin therapy for venous thromboembolism is INR 2.0-3.0 (ex: atrial fibrillation, history of TIA/stroke). For high risk patients, the suggested therapeutic range is INR 2.5-3.5 (ex: mechanical prosthetic valves). Testing Performed By: Dept of Pathology [facility] Hilaria Najera, [address] [place] [id number] Social History Social History Type Response Smoking Status Never smoked cigaret john Sex Female Patient Care team information Care Team Personnel Name: DO Alonzo Franklin J Position: Physician - Family Med Member Role: Lifetime Relationship Address: Address: [address] [address] [place] Name: MD Rosa Juan Position: Physician - Family Med Member Role: Primary Care Provider Address: Address: [address] [place] [id number] [place] Care Team Related Persons Name: NICOLASA STONE Address: home [address] Name: NICOLASA STONE Address: home [address] [phone]
--- OUTSIDE RECORDS SUMMARY | 2023-07-29 09:23 | External Medical Summary | Continuity of Care Document ---
Author Name Unknown Organization [facility] [address] Address [address] [place], [place] [id number] Care Team Providers Care Ground Mixer Name Role Phone Eric Rosa Primary Care Physician [phone] [id number] Date[facility]s): 05/25/23 - 05/25/23 [facility] [address] [facility] [phone] Discharge Disposition: Home or Self Care Attending Physician: Rahat Arroyo DO, Mariana Annette Referring Physician: Rahat Arroyo DO, Mariana Annette Allergies, Adverse Reactions, Alerts Substance Reaction Severity [...] technique, PRN: as needed for wheezing, Pharmacy: [facility] #[id number] Start Date: 11/18/22 Status: Ordered allopurinol 100 mg oral tablet Start: 04/27/23 7:55:00 EDT, See Instructions, Disp# 90 tab, Refills: 3, take 1 tablet by mouth once daily, Pharmacy: [facility] #[id number] Start Date: 04/27/23 Status: Ordered Breo Ellipta 200 mcg-25 mcg/inh inhalation powder Start: 05/22/23 20:10:00 EDT, 1 puff, inhaled, Daily, Disp# 1 blister, Refills: 0, Pharmacy: [facility] #[id number] Start Date: 05/22/23 Status: Ordered desoximetasone 0.25% topical cream Start: 07/13/16 15:24:41, 1 appl, topical, bid, Disp# 60 g, Refills: 3, Pharmacy: [facility] [place] [address] Start Date: 07/13/16 Status: Ordered dilTIAZem 30 mg oral tablet Start: 05/02/22 14:50:00 EDT, See Instructions, Disp# 360 tab, Refills: 3, take 1 tablet by mouth four times a day, Pharmacy: [facility] #[id number] Start Date: 05/02/22 Status: Ordered furosemide 20 mg oral tablet Start: 02/24/23 11:24:00 EDT, See Instructions, Disp# 24 tab, Refills: 3, 1 tab PO twive a week, Pharmacy: [facility] #[id number] Start Date: 02/24/23 Status: Ordered inhaler spacer Start: 06/25/19 14:26:00 EST, See Instructions, Disp# 1 each, Refills: 0, inhaler spacer for ventolin, Pharmacy: [facility] [place] [address] Start Date: 06/25/19 Status: Ordered Metoprolol Tartrate 25 mg oral tablet Start: 04/27/23 7:55:00 EDT, See Instructions, Disp# 180 tab, Refills: 0, take 1 tablet by mouth twice a day, Pharmacy: [facility] #[id number] Start Date: 04/27/23 Status: Ordered potassium chloride 20 mEq oral tablet, extended release Start: 06/25/19 14:26:00 EST, See Instructions, Disp# 30 tab, Refills: 11, 1 tab PO Daily as neededwith lasix for edema, [facility] Start Date: 06/25/19 Status: Ordered simvastatin 20 mg oral tablet Start: 04/27/23 7:55:00 EDT, See Instructions, Disp# 90 tab, Refills: 3, take 1 tablet by mouth once daily, Pharmacy: [facility] #[id number] Start Date: 04/27/23 Status: Ordered spironolactone 25 mg oral tablet Start: 01/19/23 10:29:00 EDT, 1 tab, PO, Daily, Disp# 30 tab, Refills: 3, Pharmacy: [facility] #[id number] Start Date: 01/19/23 Status: Ordered Vitamin B12 [...] Fri.Take 2 mg on other days., Pharmacy: [facility] #[id number] Start Date: 07/28/22 Status: Ordered Problem List [...] Lai 2sees Dr. Lai 09:55 EST - Lashanda, ANIKET, Tamia M pre and post spirometry Mild airflow obstruction without significant bronchodilator response 14763: diverticulosis Procedures Procedure Date Related Diagnosis Body [...] Mild airflow obstruction without significant bronchodilator response Social History Social History Type Response Smoking Status Never smoked cigaret john Sex Female Patient Care team information Care Team Personnel Name: DO Alonzo Franklin J Position: Physician - Family Med Member Role: Lifetime Relationship Address: Address: [address] Name: MD Rosa Juan Position: Physician - Family Med Member Role: Primary Care Provider Address: Address: [address] [place] [address] [place] Care Team Related Persons Name: NICOLASA STONE Address: home [address] Name: NICOLASA STONE Address: home [address] [phone]
--- OUTSIDE RECORDS SUMMARY | 2023-07-29 09:23 | External Medical Summary | Continuity of Care Document ---
Author Name Unknown Organization [facility] [address] Address [address] [place], [place] [id number] Care Team Providers Care Packer Sausage And Wiener Name Role Phone Eric Rosa Primary Care Physician [phone] [id number] Date(s): 06/15/23 - 06/15/23 [facility] [address] [phone] Encounter Diagnosis Chronic atrial fibrillation, unspecified(Final) - [...] vaccine live 12/15/12 Recorded tetanus/diphtheria/pertuss, acel (Tdap) 5/7/13 G iven pneumococcal 23-valent vaccine 03/19/06 Recorded Medications albuterol CFC free 90 mcg/inh MDI Start: 11/18/22 16:38:00 EDT, 2 puff, inhaled, qid, Disp# 1 each, Refills: 3, use with spacer chamber, Note to Pharmacy: please instruct, observe, and correct MDI technique, PRN: as needed for wheezing, Pharmacy: [facility] #[id number] Start Date: 11/18/22 Status: Ordered allopurinol 100 mg oral tablet Start: 04/27/23 7:55:00 EDT, See Instructions, Disp# 90 tab, Refills: 3, take 1 tablet by mouth once daily, Pharmacy: [facility] #[id number] Start Date: 04/27/23 Status: Ordered Breo Ellipta 200 mcg-25 mcg/inh inhalation powder Start: 05/22/23 20:10:00 EDT, 1 puff, inhaled, Daily, Disp# 1 blister, Refills: 0, Pharmacy: [facility] #[id number] Start Date: 05/22/23 Status: Ordered desoximetasone 0.25% topical cream Start: 07/13/16 15:24:41, 1 appl, topical, bid, Disp# 60 g, Refills: 3, Pharmacy: [facility]-[address] [place] [address] Start Date: 07/13/16 Status: Ordered dilTIAZem 30 mg oral tablet Start: 05/02/22 14:50:00 EDT, See Instructions, Disp# 360 tab, Refills: 3, take 1 tablet by mouth four times a day, Pharmacy: [facility] #[id number] Start Date: 05/02/22 Status: Ordered furosemide 20 mg oral tablet Start: 02/24/23 11:24:00 EDT, See Instructions, Disp# 24 tab, Refills: 3, 1 tab PO twive a week, Pharmacy: [facility] #[id number] Start Date: 02/24/23 Status: Ordered inhaler spacer Start: 06/25/19 14:26:00 EST, See Instructions, Disp# 1 each, Refills: 0, inhaler spacer for ventolin, Pharmacy: [facility] Start Date: 06/25/19 Status: Ordered Metoprolol Tartrate 25 mg oral tablet Start: 04/27/23 7:55:00 EDT, See Instructions, Disp# 180 tab, Refills: 0, take 1 tablet by mouth twice a day, Pharmacy: [facility] #[id number] Start Date: 04/27/23 Status: Ordered potassium chloride 20 mEq oral tablet, extended release Start: 06/25/19 14:26:00 EST, See Instructions, Disp# 30 tab, Refills: 11, 1 tab PO Daily as neededwith lasix for edema, [facility] [facility] Start Date: 06/25/19 Status: Ordered simvastatin 20 mg oral tablet Start: 04/27/23 7:55:00 EDT, See Instructions, Disp# 90 tab, Refills: 3, take 1 tablet by mouth once daily, Pharmacy: [facility] #[id number] Start Date: 04/27/23 Status: Ordered spironolactone 25 mg oral tablet Start: 01/19/23 10:29:00 EDT, 1 tab, PO, Daily, Disp# 30 tab, Refills: 3, Pharmacy: [facility] #[id number] Start Date: 01/19/23 Status: Ordered Vitamin B12 [...] Fri.Take 2 mg on other days., Pharmacy: [facility] #[id number] Start Date: 07/28/22 Status: Ordered Problem List [...] Lai 2sees Dr. Lai 09:55 EST - Naimater, [employer] GUNNER, Tamia M pre and post spirometry Mild airflow obstruction without significant bronchodilator response 21311: diverticulosis Procedures Procedure Date Related Diagnosis Body [...] Time w/ INR (PROTIME WITH IN R) 06/15/23 Request to FAX Report (First Location) ( ACC NO TO BE FAXED) 06/15/23 Most recent to oldest [Reference Range]: 1 Phone No [phone] (06/15/23 2:42 PM) Faxed on: 06/16/23 10:08 (06/15/23 2:42 PM) INR [0.9-1.1] 2.3 2 *HI* (06/15/23 2:42 PM) PT [12.0-14.2 seconds] 25.9 seconds *HI* (06/15/23 2:42 PM) 1Result Comment: Testing Performed By: [facility], [address] [place] [id number] 2Result Comment: Suggested therapeutic range for low-intensity Coumadin therapy for venous thromboembolism is INR 2.0-3.0 (ex: atrial fibrillation, history of TIA/stroke). For high risk patients, the suggested therapeutic range is INR 2.5-3.5 (ex: mechanical prosthetic valves). Testing Performed By: [facility], [address] [place] [address] Social History Social History Type Response Smoking Status Never smoked cigaret john Sex Female Patient Care team information Care Team Personnel Name: DO Alonzo Franklin J Position: Physician - Family Med Member Role: Lifetime Relationship Address: Address: [address] [address] [place] Name: MD Rosa Juan Position: Physician - Family Med Member Role: Primary Care Provider Address: Address: [address] [place] [address] [place] Care Team Related Persons Name: NICOLASA STONE Address: home [address] [facility] [place] [place] [phone] Name: NICOLASA STONE Address: home [address]
--- OUTSIDE RECORDS SUMMARY | 2023-07-29 09:23 | External Medical Summary | Continuity of Care Document ---
Author Name Unknown Organization [facility] Address [address] [place], [place] [id number] Care Team Providers Care Membership Administrator Name Role Phone Eric Rosa Primary Care Physician [phone] [id number] Date[facility]s): 07/03/23 - 07/03/23 [facility] [address], [address] [place] [address] [phone] Encounter Diagnosis Diastolic CHF(Discharge Diagnosis) - 07/03/23 A-fib(Discharge Diagnosis) - 07/03/23 Anticoagulated(Discharge Diagnosis) - 07/03/23 Discharge Disposition: Home or Self Care Attending [...] Visit Note Author:CJ Loving rd, Sarah A Date:07/03/23 IMPRESSIONS: 1. Chronic atrial fibrillation with a rate control strategy on chronic Coumadin anticoagulation. 2. Hypertension. 3. Chronic diastolic heart failure, well controlled, rarely using diuretics. 4. No evidence of epicardial coronary disease by cardiac catheterization in 2008. [1] 5. Echocardiogram at [facility] on January 06 showing ejection fraction of 60 to 65%, flattened septum consistent with volume overload, right ventricle moderately to severely dilated, right ventricular systolic function moderately reduced, mild aortic regurgitation, moderate mitral regurgitation, severely dilated left atrium, severe tricuspid regurgitation, severely dilated right atrium, RVSP 50 to 60 mmHg Ms. Miller overall appears fairly stable. She is using her supplemental oxygen. She was unsure how often to use it. I reviewed heroxygen order with her which showed that she was able to keep herpulse ox above 92% while at restbut that herO2 dropped into the 80s with exertion so blair only needs to wear her oxygen when she is exerting herself. She has a pulse ox at home but it sounds like it is giving her prettyvariable readings, as low as 61% when she felt fine. She admits that her fingers are often very cold. I recommended that shebuy a new pulse ox and make sure that her fingers are very warmwhenever she is going tocheck it. If she is experiencingoxygen saturations below 90% at restthen she may need towear her oxygen continuously. Her weight is up but otherwise she is not havingheart failure symptoms. She did stop taking her spironolactone about 6 weeks ago. I will have herresume. She has orders forher yearly blood workto be drawn in July. She has not any falls. She continues on anticoagulation for stroke prevention. Her heart rate is controlled. She will return to the clinic in 4 months Immunizations Given and Recorded Vaccine Date Status [...] technique, PRN: as needed for wheezing, Pharmacy: [facility] #[id number] Start Date: 11/18/22 Status: Ordered allopurinol 100 mg oral tablet Start: 04/27/23 7:55:00 EDT, See Instructions, Disp# 90 tab, Refills: 3, take 1 tablet by mouth once daily, Pharmacy: [facility] #[id number] Start Date: 04/27/23 Status: Ordered Breo Ellipta 200 mcg-25 mcg/inh inhalation powder Start: 06/19/23 10:19:00 EST, 1 puff, inhaled, Daily, Disp# 60 blister, Refills: 11, [facility] #[id number] Start Date: 06/19/23 Status: Ordered desoximetasone 0.25% topical cream Start: 07/13/16 15:24:41, 1 appl, topical, bid, Disp# 60 g, Refills: 3, [facility] [place] [address] Start Date: 07/13/16 Status: Ordered dilTIAZem 30 mg oral tablet Start: 05/02/22 14:50:00 EDT, See Instructions, Disp# 360 tab, Refills: 3, take 1 tablet by mouth four times a day, [facility] #[id number] Start Date: 05/02/22 Status: Ordered furosemide 20 mg oral tablet Start: 02/24/23 11:24:00 EDT, See Instructions, Disp# 24 tab, Refills: 3, 1 tab PO twive a week, Pharmacy: [facility] #[id number] Start Date: 02/24/23 Status: Ordered inhaler spacer Start: 06/25/19 14:26:00 EST, See Instructions, Disp# 1 each, Refills: 0, inhaler spacer for ventolin, Pharmacy: [facility] Start Date: 06/25/19 Status: Ordered Metoprolol Tartrate 25 mg oral tablet Start: 04/27/23 7:55:00 EDT, See Instructions, Disp# 180 tab, Refills: 0, take 1 tablet by mouth twice a day, Pharmacy: [facility] #[id number] Start Date: 04/27/23 Status: Ordered potassium chloride 20 mEq oral tablet, extended release Start: 06/25/19 14:26:00 EST, See Instructions, Disp# 30 tab, Refills: 11, 1 tab PO Daily as neededwith lasix for edema, Pharmacy: [facility] Start Date: 06/25/19 Status: Ordered simvastatin 20 mg oral tablet Start: 04/27/23 7:55:00 EDT, See Instructions, Disp# 90 tab, Refills: 3, take 1 tablet by mouth once daily, Pharmacy: [facility] #[id number] Start Date: 04/27/23 Status: Ordered spironolactone 25 mg oral tablet Start: 07/03/23 11:22:00 EST, 1 tab, PO, Daily, Disp# 90 tab, Refills: 3, Pharmacy: [facility] #[id number] Start Date: 07/03/23 Status: Ordered Vitamin B12 [...] Fri.Take 2 mg on other days., Pharmacy: [facility] #[id number] Start Date: 07/28/22 Status: Ordered Mental Status 07/03/23 Barriers to Learning one year None evide nt Mandatory Health Literacy Documentation Yes Health Literacy Communication Barriers N ever Primary Language Polish Problem List Condition Confirmation Course Effective Dates [...] Mild airflow obstruction without significant bronchodilator response 86793: diverticulosis Diagnosis Diagnosis Type Effective Dates Health Status Cl inical Service Informant Diastolic CHF Discharge Diagnosis 07/03/23 Non-Specified Anticoagulated Discharge Diagnosis 07/03/23 Non-Specified A-fib Discharge Diagnosis 07/03/23 Non-Specified Procedures Procedure Date Related Diagnosis Body [...] Most recent to oldest [Reference Range]: 1 Patient Weight 78.4 kg (07/03/23 10:49 AM) Heart Rate 74 bpm (07/03/23 10:49 AM) Respiratory Rate 18 br/min (07/03/23 10:49 AM) Blood Pressure 108/72mmHg (07/03/23 10:49 AM) Cuff Pulse Pressure 36 mmHg (07/03/23 10:49 AM) BP Location # 1 Left Arm (07/03/23 10:49 AM) Social History Social History Type Response Smoking Status Never smoked cigaret john Sex Female Cardiology Outpatient Note * CJ Ferguson Sarah A: PERFORM Event Display: Cardiology Outpt Note Authored Date: Primary Care Provider MD Rosa Juan Referring Provider CJ Ferguson Sarah A Chief Complaint follow up, using 2l o2 continuously, History of Present Illness Ms. Miller presents for follow up of afib and diastolic heart failure. She has been using her oxygen continuously. She feel sob sometimes but not always. She is most limited by back pain. Her weight is up. No orthopnea or edema. She does think she has been eating more calories. She ran out of her spironolactone in May and hasn't taken it since. Review of Systems All other systems reviewed and negative except as discussed in the HPI Physical Exam Vitals & Measurements HR:74(Monitored) RR:18 BP:108/72 SpO2:94% WT:78.4kg WT:78.400kg(Dosing) Physical Examination General: Alert and oriented, No acute distress. Respiratory: Lungs are clear to auscultation, Respirations are non-labored. Cardiovascular: Normal rate, Regular rhythm, No murmur, No edema, no carotid bruits to auscultation bilaterally. Integumentary: Warm, Dry, [place] Neurologic: Alert, Oriented. Cognition and Speech: Speech clear and coherent. Psychiatric: Cooperative, Appropriate mood & affect. Assessment/Plan IMPRESSIONS: 1. Chronic atrial fibrillation with a rate control strategy on chronic Coumadin anticoagulation. 2. Hypertension. 3. Chronic diastolic heart failure, well controlled, rarely using diuretics. 4. No evidence of epicardial coronary disease by cardiac catheterization in 2008. [1] 5. Echocardiogram at [facility] on January 06 showing ejection fraction of 60 to 65%,flattened septum consistent with volume overload, right ventricle moderately to severely dilated, right ventricular systolic function moderately reduced, mild aortic regurgitation, moderate mitral regurgitation, severely dilated left atrium, severe tricuspid regurgitation, severely dilated right atrium, RVSP 50 to 60 mmHg Ms. Miller overall appears fairly stable. She is using her supplemental oxygen. She was unsure how often to use it. I reviewed heroxygen order with her which showed that she was able to keep herpulse ox above 92% while at restbut that herO2 dropped into the 80s with exertion so blair only needs to wear her oxygen when she is exerting herself. She has a pulse ox at home butit sounds like it is giving her prettyvariable readings, as low as 61% when she felt fine. She admits that her fingers are often very cold. I recommended that shebuy a new pulse ox and make sure that her fingers are very warmwhenever she is going tocheck it. If she is experiencingoxygen saturations below 90% at restthen she may need towear her oxygen continuously. Her weight is up but otherwise she is not havingheart failure symptoms. She did stop taking herspironolactone about 6 weeks ago. I will have herresume. She has orders forher yearly bloodworkto be drawn in July. She has not any falls. She continues on anticoagulation for stroke prevention. Her heart rate is controlled. 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 Exercise - Does not exercise Home/Environment Lives [...] stenosis Relationship: Brother, Age: 53 Years, Cause: [place] Relationship: Father, Age: 58 Years, Cause: colon cancer Electronic Signature on File CC: Eric Rosa MD [address] [place] [id number] Electronically Reviewed/Signed by: CJ Mora Author Signature Dt/Tm:07/03/2023 11:40 AM [facility] [place] [facility] Patient Care team information Care Team Personnel Name: DO Alonzo Franklin J Position: Physician - Family Med Member Role: Lifetime Relationship Address: Address: [address] [place] [address] [place] Name: MD Rosa Juan Position: Physician - Family Med Member Role: Primary Care Provider Address: Address: [address] [place] [address] Care Team Related Persons Name: NICOLASA STONE Address: home [address] [place] [phone] Name: NICOLASA STONE Address: home [address]
--- OUTSIDE RECORDS SUMMARY | 2023-07-29 09:23 | External Medical Summary | Continuity of Care Document ---
Author Name Unknown Organization [facility] [address] [facility] Address [address] [place], [place] [id number] Care Team Providers Care Linter Operator Name Role Phone Eric Rosa Primary Care Physician [phone] [id number]24[facility]23 - 02/24/23 [facility] [address], [address] [place] [address] [phone] Encounter Diagnosis Pulmonary HTN(Discharge Diagnosis) - 02/24/23 [...] catheterization in 2008. [1] 5. Echocardiogram at [facility] on January 06 showing ejection fraction [...] as needed for wheezing, Pharmacy: [facility] #[id number] Start Date: 11/18/22 Status: Ordered allopurinol 100 mg oral tablet Start: 02/04/22 17:13:00 EDT, See Instructions, Disp# 90 tab, Refills: 3, take 1 tablet by mouth once daily, [facility]: [facility] [place] [address] Start Date: 02/04/22 Status: Ordered Breo Ellipta 200 mcg-25 mcg/inh inhalation powder Start: 01/10/23 10:44:00 EDT, 1 puff, inhaled, Daily, Disp# 1 each Start Date: 01/10/23 Stop Date: 02/09/23 Status: Ordered desoximetasone 0.25% topical cream Start: 07/13/16 15:24:41, 1 appl, topical, bid, Disp# 60 g, Refills: 3, Pharmacy: [address] Start Date: 07/13/16 Status: Ordered dilTIAZem 30 mg oral tablet Start: 05/02/22 14:50:00 EDT, See Instructions, Disp# 360 tab, Refills: 3, take 1 tablet by mouth four times a day, Pharmacy: [id number] Start Date: 05/02/22 Status: Ordered furosemide 20 mg oral tablet Start: 02/24/23 11:24:00 EDT, See Instructions, Disp# 24 tab, Refills: 3, 1 tab PO twive a week, [facility] [id number] Start Date: 02/24/23 Status: Ordered inhaler spacer Start: 06/25/19 14:26:00 EST, See Instructions, Disp# 1 each, Refills: 0, inhaler spacer for ventolin, Pharmacy: [address] Start Date: 06/25/19 Status: Ordered Metoprolol Tartrate 25 mg oral tablet Start: 02/08/22 16:53:00 EDT, See Instructions, Disp# 180 tab, Refills: 4, take 1 tablet by mouth twice a day, Pharmacy: [address] Start Date: 02/08/22 Status: Ordered potassium chloride 20 mEq oral tablet, extended release Start: 06/25/19 14:26:00 EST, See Instructions, Disp# 30 tab, Refills: 11, 1 tab PO Daily as neededwith lasix for edema, Pharmacy: [address] Start Date: 06/25/19 Status: Ordered simvastatin 20 mg oral tablet See Instructions, Disp# 90 tab, Refills: 3, take 1 tablet by mouth every other day., Pharmacy: [address] Start Date: 11/08/21 Status: Ordered spironolactone 25 mg oral tablet Start: 01/19/23 10:29:00 EDT, 1 tab, PO, Daily, Disp# 30 tab, Refills: 3, Pharmacy: [facility] [id number] Start Date: 01/19/23 Status: Ordered Vitamin B12 [...] Fri.Take 2 mg on other days., Pharmacy: [facility] #[id number] Start Date: 07/28/22 Status: Ordered Mental Status [...] Mild airflow obstruction without significant bronchodilator response 54927: diverticulosis Diagnosis Diagnosis Type Effective Dates Health [...] Comment: Testing Performed By: Dept of [facility] [address], [facility] [address], [place] [address] Vital Signs Most recent to oldest [Reference [...] Event Display: Cardiology Outpt Note Authored Date: [id number] Primary Care Provider MD Shelley, Eric Referring Provider CJ Ferguson Sarah A Chief Complaint Recently saw [facility], is supposed to have home O2, has not heard from them. Will send message to [facility] History of Present Illness Ms. Miller presents [...] No murmur, No edema Integumentary: Warm, Dry, [place] Neurologic: Alert, Oriented. Cognition and Speech: Speech clear and coherent. Psychiatric: Cooperative, Appropriate mood & affect. Assessment/Plan IMPRESSIONS: 1. Chronic atrial fibrillation with a rate control strategy on chronic Coumadin anticoagulation. 2. Hypertension. 3. Chronic diastolic heart failure, well controlled, rarely using diuretics. 4. No evidence of epicardial coronary disease by cardiac catheterization in 2008. [1] 5. 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 Exercise - Does not exercise Home/Environment Lives [...] stenosis Relationship: Brother, Age: 53 Years, Cause: [place] Relationship: Father, Age: 58 Years, Cause: colon cancer Electronic Signature on File CC: Chan Alonzo DO [address] [address] CC: Josiane Martinez [address] [address] Electronically Reviewed/Signed by: CJ Mora Author Signature Dt/Tm:02/24/2023 01:36 PM [facility] [place] [facility] Patient Care team information Care Team Personnel Name: DO Alonzo Franklin J Position: Physician - Family Med Member Role: Lifetime Relationship Address: Address: [address] [address] [place] Name: MD Rosa Juan Position: Physician - Family Med Member Role: Primary Care Provider Address: Address: [address] [place] [phone] [place] Care Team Related Persons Name: NICOLASA STONE Address: home [address] [place] [phone] Name: NICOLASA STONE Address: home [address]
--- OUTSIDE RECORDS SUMMARY | 2023-07-29 09:23 | External Medical Summary | Continuity of Care Document ---
Author Name Unknown Organization [facility] [address] Address [address] [place], [place] [id number] Care Team Providers Care Hat Presser Name Role Phone Eric Rosa Primary Care Physician [phone] [id number] Date(s): 02/09/23 - 02/09/23 [facility] [address] [facility] [address] [phone] Encounter Diagnosis Chronic atrial fibrillation, unspecified(Final) - [...] technique, PRN: as needed for wheezing, Pharmacy: [facility] [id number] Start Date: 11/18/22 Status: Ordered allopurinol 100 mg oral tablet Start: 02/04/22 17:13:00 EDT, See Instructions, Disp# 90 tab, Refills: 3, take 1 tablet by mouth once daily, Pharmacy: [facility] Start Date: 02/04/22 Status: Ordered Breo Ellipta 200 mcg-25 mcg/inh inhalation powder Start: 01/10/23 10:44:00 EDT, 1 puff, inhaled, Daily, Disp# 1 each Start Date: 01/10/23 Stop Date: 02/09/23 Status: Ordered desoximetasone 0.25% topical cream Start: 07/13/16 15:24:41, 1 appl, topical, bid, Disp# 60 g, Refills: 3, Pharmacy: [facility] Start Date: 07/13/16 Status: Ordered dilTIAZem 30 mg oral tablet Start: 05/02/22 14:50:00 EDT, See Instructions, Disp# 360 tab, Refills: 3, take 1 tablet by mouth four times a day, Pharmacy: [facility] [id number] Start Date: 05/02/22 Status: Ordered furosemide 20 mg oral tablet Start: 01/27/23 15:47:00 EDT, 1 tab, PO, Daily Start Date: 01/27/23 Status: Ordered inhaler spacer Start: 06/25/19 14:26:00 EST, See Instructions, Disp# 1 each, Refills: 0, inhaler spacer for ventolin, Pharmacy: [address] Start Date: 06/25/19 Status: Ordered Metoprolol Tartrate 25 mg oral tablet Start: 02/08/22 16:53:00 EDT, See Instructions, Disp# 180 tab, Refills: 4, take 1 tablet by mouth twice a day, Pharmacy: [facility] [place] [address] Start Date: 02/08/22 Status: Ordered potassium chloride 20 mEq oral tablet, extended release Start: 06/25/19 14:26:00 EST, See Instructions, Disp# 30 tab, Refills: 11, 1 tab PO Daily as neededwith lasix for edema, Pharmacy: [facility] Start Date: 06/25/19 Status: Ordered simvastatin 20 mg oral tablet See Instructions, Disp# 90 tab, Refills: 3, take 1 tablet by mouth every other day., Pharmacy: [facility] [place] [address] Start Date: 11/08/21 Status: Ordered spironolactone 25 mg oral tablet Start: 01/19/23 10:29:00 EDT, 1 tab, PO, Daily, Disp# 30 tab, Refills: 3, Pharmacy: [facility] #[id number] Start Date: 01/19/23 Status: Ordered Vitamin B12 [...] Mon.Take 2 mg on other days., Pharmacy: [facility] #[id number] Start Date: 07/28/22 Status: Ordered Problem List [...] Mild airflow obstruction without significant bronchodilator response 87394: diverticulosis Procedures Procedure Date Related Diagnosis Body [...] Time w/ INR (PROTIME WITH IN R) 02/09/23 Request to FAX Report (First Location) ( ACC NO TO BE FAXED) 02/09/23 Most recent to oldest [Reference Range]: 1 Phone No [phone] (02/09/23 2:09 PM) Faxed on: 02/10/23 09:12 (02/09/23 2:09 PM) INR [0.9-1.1] 2.0 2 *HI* (02/09/23 2:09 PM) PT [12.0-14.2 seconds] 22.4 seconds *HI* (02/09/23 2:09 PM) 1Result Comment: Testing Performed By: Dept of Pathology [facility] Hilaria Najera, [address] [place] [address] 2Result Comment: Suggested therapeutic range for low-intensity Coumadin therapy for venous thromboembolism is INR 2.0-3.0 (ex: atrial fibrillation, history of TIA/stroke). For high risk patients, the suggested therapeutic range is INR 2.5-3.5 (ex: mechanical prosthetic valves). Testing Performed By: Dept of Pathology [facility] Hilaria Najera, [address] [place] [address] Social History Social History Type Response Smoking Status Never smoked cigaret john Sex Female Patient Care team information Care Team Personnel Name: DO Alonzo Franklin J Position: Physician - Family Med Member Role: Lifetime Relationship Address: Address: [address] [address] [place] Name: MD Rosa Juan Position: Physician - Family Med Member Role: Primary Care Provider Address: Address: [address] [place] [address] [place] Care Team Related Persons Name: NICOLASA STONE Address: home [address] Name: NICOLASA STONE Address: home [address] [id number]
--- OUTSIDE RECORDS SUMMARY | 2023-07-29 09:23 | External Medical Summary | Continuity of Care Document ---
Author Name Unknown Organization [facility] [address] Address [address] [place], [place] [id number] Care Team Providers Care Shop Welder Name Role Phone Eric Rosa Primary Care Physician [phone] [id number] Date(s): 04/12/23 - 04/12/23 [facility] [address] [facility] [phone] Encounter Diagnosis Chronic atrial fibrillation, unspecified(Final) - [...] technique, PRN: as needed for wheezing, Pharmacy: [facility] #[id number] Start Date: 11/18/22 Status: Ordered allopurinol 100 mg oral tablet Start: 02/04/22 17:13:00 EDT, See Instructions, Disp# 90 tab, Refills: 3, take 1 tablet by mouth once daily, Pharmacy: [facility] Start Date: 02/04/22 Status: Ordered Breo Ellipta 200 mcg-25 mcg/inh inhalation powder Start: 01/10/23 10:44:00 EDT, 1 puff, inhaled, Daily, Disp# 1 each Start Date: 01/10/23 Stop Date: 02/09/23 Status: Ordered desoximetasone 0.25% topical cream Start: 07/13/16 15:24:41, 1 appl, topical, bid, Disp# 60 g, Refills: 3, Pharmacy: [facility] Start Date: 07/13/16 Status: Ordered dilTIAZem 30 mg oral tablet Start: 05/02/22 14:50:00 EDT, See Instructions, Disp# 360 tab, Refills: 3, take 1 tablet by mouth four times a day, Pharmacy: [facility] #[id number] Start Date: 05/02/22 Status: Ordered furosemide 20 mg oral tablet Start: 02/24/23 11:24:00 EDT, See Instructions, Disp# 24 tab, Refills: 3, 1 tab PO twive a week, Pharmacy: [facility] #[id number] Start Date: 02/24/23 Status: Ordered inhaler spacer Start: 06/25/19 14:26:00 EST, See Instructions, Disp# 1 each, Refills: 0, inhaler spacer for ventolin, Pharmacy: [facility] Start Date: 06/25/19 Status: Ordered Metoprolol Tartrate 25 mg oral tablet Start: 02/08/22 16:53:00 EDT, See Instructions, Disp# 180 tab, Refills: 4, take 1 tablet by mouth twice a day, Pharmacy: [facility] [place] [address] Start Date: 02/08/22 Status: Ordered potassium chloride 20 mEq oral tablet, extended release Start: 06/25/19 14:26:00 EST, See Instructions, Disp# 30 tab, Refills: 11, 1 tab PO Daily as neededwith lasix for edema, Pharmacy: [facility] Start Date: 06/25/19 Status: Ordered simvastatin 20 mg oral tablet See Instructions, Disp# 90 tab, Refills: 3, take 1 tablet by mouth every other day., Pharmacy: [facility] Start Date: 11/08/21 Status: Ordered spironolactone 25 mg oral tablet Start: 01/19/23 10:29:00 EDT, 1 tab, PO, Daily, Disp# 30 tab, Refills: 3, Pharmacy: [facility] #[id number] Start Date: 01/19/23 Status: Ordered Vitamin B12 [...] Mon.Take 2 mg on other days., Pharmacy: [facility] #[id number] Start Date: 07/28/22 Status: Ordered Problem List [...] 2sees Dr. Lai 09:55 EST - Lashanda, DRYING FRAME OPERATOR, Tamia M pre and post spirometry Mild airflow obstruction without significant bronchodilator response 47980: diverticulosis Procedures Procedure Date Related Diagnosis Body [...] Time w/ INR (PROTIME WITH IN R) 04/12/23 Request to FAX Report (First Location) ( ACC NO TO BE FAXED) 04/12/23 Most recent to oldest [Reference Range]: 1 Phone No [phone] (04/12/23 2:08 PM) Faxed on: 04/13/23 09:03 (04/12/23 2:08 PM) INR [0.9-1.1] 2.6 2 *HI* (04/12/23 2:08 PM) PT [12.0-14.2 seconds] 27.4 seconds *HI* (04/12/23 2:08 PM) 1Result Comment: Testing [facility]formed [facility]: [facility], [address] [place] [address] 2Result Comment: Suggested therapeutic range for low-intensity Coumadin therapy for venous thromboembolism is INR 2.0-3.0 (ex: atrial fibrillation, history of TIA/stroke). For high risk patients, the suggested therapeutic range is INR 2.5-3.5 (ex: mechanical prosthetic valves). Testing Performed By: [facility], [address] [place] [address] Social History Social History Type Response Smoking Status Never smoked cigaret john Sex Female Patient Care team information Care Team Personnel Name: DO Alonzo Franklin J Position: Physician - Family Med Member Role: Lifetime Relationship Address: Address: [address] [address] [place] Name: MD Rosa Juan Position: Physician - Family Med Member Role: Primary Care Provider Address: Address: [address] [place] [address] [place] Care Team Related Persons Name: NICOLASA STONE Address: home [address] [phone] Name: NICOLASA STONE Address: home [address]
--- OUTSIDE RECORDS SUMMARY | 2023-07-29 09:23 | External Medical Summary | Continuity of Care Document ---
Author Name Unknown Organization [facility] [address] Address [address] [place], [place] [id number] Care Team Providers Care Head Bookkeeper Name Role Phone Eric Rosa Primary Care Physician [phone] [id number] Date(s): 05/25/23 - 05/25/23 [facility] [address] [facility] [phone] Discharge Disposition: Home or Self Care Attending [...] technique, PRN: as needed for wheezing, Pharmacy: [facility] #[id number] Start Date: 11/18/22 Status: Ordered allopurinol 100 mg oral tablet Start: 04/27/23 7:55:00 EDT, See Instructions, Disp# 90 tab, Refills: 3, take 1 tablet by mouth once daily, Pharmacy: [facility] #[id number] Start Date: 04/27/23 Status: Ordered Breo Ellipta 200 mcg-25 mcg/inh inhalation powder Start: 05/22/23 20:10:00 EDT, 1 puff, inhaled, Daily, Disp# 1 blister, Refills: 0, Pharmacy: [facility] #[id number] Start Date: 05/22/23 Status: Ordered desoximetasone 0.25% topical cream Start: 07/13/16 15:24:41, 1 appl, topical, bid, Disp# 60 g, Refills: 3, Pharmacy: [facility] Start Date: 07/13/16 Status: Ordered dilTIAZem 30 mg oral tablet Start: 05/02/22 14:50:00 EDT, See Instructions, Disp# 360 tab, Refills: 3, take 1 tablet by mouth four times a day, Pharmacy: [facility] #[id number] Start Date: 05/02/22 Status: Ordered furosemide 20 mg oral tablet Start: 02/24/23 11:24:00 EDT, See Instructions, Disp# 24 tab, Refills: 3, 1 tab PO twive a week, Pharmacy: [facility] #[id number] Start Date: 02/24/23 Status: Ordered inhaler spacer Start: 06/25/19 14:26:00 EST, See Instructions, Disp# 1 each, Refills: 0, inhaler spacer for ventolin, Pharmacy: [facility] Start Date: 06/25/19 Status: Ordered Metoprolol Tartrate 25 mg oral tablet Start: 04/27/23 7:55:00 EDT, See Instructions, Disp# 180 tab, Refills: 0, take 1 tablet by mouth twice a day, Pharmacy: [facility] #[id number] Start Date: 04/27/23 Status: Ordered potassium chloride 20 mEq oral tablet, extended release Start: 06/25/19 14:26:00 EST, See Instructions, Disp# 30 tab, Refills: 11, 1 tab PO Daily as neededwith lasix for edema, Pharmacy: [facility] [place] [address] Start Date: 06/25/19 Status: Ordered simvastatin 20 mg oral tablet Start: 04/27/23 7:55:00 EDT, See Instructions, Disp# 90 tab, Refills: 3, take 1 tablet by mouth once daily, Pharmacy: [facility] #[id number] Start Date: 04/27/23 Status: Ordered spironolactone 25 mg oral tablet Start: 01/19/23 10:29:00 EDT, 1 tab, PO, Daily, Disp# 30 tab, Refills: 3, Pharmacy: [facility] #[id number] Start Date: 01/19/23 Status: Ordered Vitamin B12 [...] Mon.Take 2 mg on other days., [facility][id number] Start Date: 07/28/22 Status: Ordered Problem List [...] Lai 2sees Dr. Lai 09:55 EST - Naimamarlena, LINING LAYER, Tamia M pre and post spirometry Mild airflow obstruction without significant bronchodilator response 28909: diverticulosis Procedures Procedure Date Related Diagnosis Body [...] Time w/ INR (PROTIME WITH IN R) 05/25/23 Request to FAX Report (First Location) ( ACC NO TO BE FAXED) 05/25/23 Most recent to oldest [Reference Range]: 1 Phone No [phone] (05/25/23 2:05 PM) Faxed on: 05/26/23 09:24 (05/25/23 2:05 PM) INR [0.9-1.1] 2.9 2 *HI* (05/25/23 2:05 PM) PT [12.0-14.2 seconds] 31.0 seconds *HI* (05/25/23 2:05 PM) 1Result Comment: Testing Performed By: Dept of Pathology [facility] Hilaria Najera, [address] [place] [address] 2Result Comment: Suggested therapeutic range for low-intensity Coumadin therapy for venous thromboembolism is INR 2.0-3.0 (ex: atrial fibrillation, history of TIA/stroke). For high risk patients, the suggested therapeutic range is INR 2.5-3.5 (ex: mechanical prosthetic valves). Testing Performed By: [facility], [address] [place] [address] Social History Social History Type Response Smoking Status Never smoked cigaret john Sex Female Patient Care team information Care Team Personnel Name: DO Alonzo Franklin J Position: Physician - Family Med Member Role: Lifetime Relationship Address: Address: [address] [address] [place] Name: MD Rosa Juan Position: Physician - Family Med Member Role: Primary Care Provider Address: Address: [address] [place] [address] [place] Care Team Related Persons Name: NICOLASA STONE Address: home [address] Name: NICOLASA STONE Address: home [address] [phone]
--- OUTSIDE RECORDS SUMMARY | 2023-07-29 09:23 | External Medical Summary | Continuity of Care Document ---
Author Name Unknown Organization [facility] [address] Address [address] [place], [place] [id number] Care Team Providers Care Negative Turner Name Role Phone Eric Rosa Primary Care Physician [phone] [id number] 07/14/23 - 07/14/23 [facility] [address] [facility] [address] [phone] Encounter Diagnosis Heart failure, unspecified(Final) - Discharge Disposition: Home or Self Care Attending Physician: DO Lai Jason D Referring Physician: DO Lai Jason D Allergies, Adverse Reactions, Alerts Substance Reaction Severity [...] technique, PRN: as needed for wheezing, Pharmacy: [facility] #[id number] Start Date: 11/18/22 Status: Ordered allopurinol 100 mg oral tablet Start: 04/27/23 7:55:00 EDT, See Instructions, Disp# 90 tab, Refills: 3, take 1 tablet by mouth once daily, Pharmacy: [facility] #[id number] Start Date: 04/27/23 Status: Ordered Breo Ellipta 200 mcg-25 mcg/inh inhalation powder Start: 06/19/23 10:19:00 EST, 1 puff, inhaled, Daily, Disp# 60 blister, Refills: 11, [facility] #[id number] Start Date: 06/19/23 Status: Ordered desoximetasone 0.25% topical cream Start: 07/13/16 15:24:41, 1 appl, topical, bid, Disp# 60 g, Refills: 3, Pharmacy: [facility] [place] [address] Start Date: 07/13/16 Status: Ordered dilTIAZem 30 mg oral tablet Start: 05/02/22 14:50:00 EDT, See Instructions, Disp# 360 tab, Refills: 3, take 1 tablet by mouth four times a day, Pharmacy: [facility] #[id number] Start Date: 05/02/22 Status: Ordered furosemide 20 mg oral tablet Start: 02/24/23 11:24:00 EDT, See Instructions, Disp# 24 tab, Refills: 3, 1 tab PO twive a week, Pharmacy: [facility] #[id number] Start Date: 02/24/23 Status: Ordered inhaler spacer Start: 06/25/19 14:26:00 EST, See Instructions, Disp# 1 each, Refills: 0, inhaler spacer for ventolin, Pharmacy: [facility] [place] [address] Start Date: 06/25/19 Status: Ordered Metoprolol Tartrate 25 mg oral tablet Start: 04/27/23 7:55:00 EDT, See Instructions, Disp# 180 tab, Refills: 0, take 1 tablet by mouth twice a day, Pharmacy: [facility] #[id number] Start Date: 04/27/23 Status: Ordered potassium chloride 20 mEq oral tablet, extended release Start: 06/25/19 14:26:00 EST, See Instructions, Disp# 30 tab, Refills: 11, 1 tab PO Daily as neededwith lasix for edema, Pharmacy: [facility] [place] [address] Start Date: 06/25/19 Status: Ordered simvastatin 20 mg oral tablet Start: 04/27/23 7:55:00 EDT, See Instructions, Disp# 90 tab, Refills: 3, take 1 tablet by mouth once daily, Pharmacy: [facility] #[id number] Start Date: 04/27/23 Status: Ordered spironolactone 25 mg oral tablet Start: 07/03/23 11:22:00 EST, 1 tab, PO, Daily, Disp# 90 tab, Refills: 3, Pharmacy: [facility] #[id number] Start Date: 07/03/23 Status: Ordered Vitamin B12 [...] Fri.Take 2 mg on other days., Pharmacy: [facility] #[id number] Start Date: 07/28/22 Status: Ordered Problem List [...] 2sees Dr. Lai 09:55 EST - Naimater, PROGRAM SCHEDULE CLERK, Tamia M pre and post spirometry Mild airflow obstruction without significant bronchodilator response 49490: diverticulosis Procedures Procedure Date Related Diagnosis Body [...] Basic Metabolic Panel (BASIC METAB PANEL ) 07/14/23 Most recent to oldest [Reference Range]: 1 eGFR CKD-EPI [>60 mL/min/1.73 m2] 46 mL/ min/1.73 m2 1 *LOW* (07/14/23 10:38 AM) Estimated CrCl 32.90 mL/min (07/14/23 11:41 AM) Anion Gap [5-14 mmol/L] 7 mmol/L (07/14/23 10:38 AM) BUN [7-20 mg/dL] 20 mg/dL (07/14/23 10:38 AM) Ca [8.4-10.2 mg/dL] 9.2 mg/dL (07/14/23 10:38 AM) Cl- [96-107 mmol/L] 102 mmol/L (07/14/23 10:38 AM) HCO3 [22-30 mmol/L] 30 mmol/L (07/14/23 10:38 AM) Cret [0.60-1.00 mg/dL] 1.15 mg/dL *HI* (07/14/23 10:38 AM) Glu [74-106 mg/dL] 117 mg/dL *HI* (07/14/23 10:38 AM) K [3.5-5.1 mmol/L] 4.7 mmol/L (07/14/23 10:38 AM) Na [137-145 mmol/L] 139 mmol/L (07/14/23 10:38 AM) 1Result Comment: Testing Performed By: Dept of Pathology [facility] Hilaria Najera, [address], [place] [address] Social History Social History Type Response Smoking Status Never smoked cigaret john Sex Female Patient Care team information Care Team Personnel Name: DO Alonzo Franklin J Position: Physician - Family Med Member Role: Lifetime Relationship Address: Address: [address] [facility] [address] [place] [address], [place] [address] Name: MD Rosa Juan Position: Physician - Family Med Member Role: Primary Care Provider Address: Address: [address] [place] [address], [place] [address] Care Team Related Persons Name: NICOLASA STONE Address: home [address] [place] [phone] Name: NICOLASA STONE Address: home [address]
--- OUTSIDE RECORDS SUMMARY | 2023-07-29 09:23 | External Medical Summary | Continuity of Care Document ---
Author Name Unknown Organization [facility] [address] Address [address] [place], [place] [id number] Care Team Providers Care First Aid Trainer Name Role Phone Eric Rosa Primary Care Physician [phone] Encounter [facility] [id number] Date(s): 02/09/23 - 02/09/23 [facility] [address] [facility] [address] 1 [facility] [address] [phone] Encounter Diagnosis Hypoxemia(Final) - Unspecified asthma, uncomplicated(Final) - Discharge Disposition: Home or Self Care [...] technique, PRN: as needed for wheezing, Pharmacy: [facility] [id number] Start Date: 11/18/22 Status: Ordered allopurinol 100 mg oral tablet Start: 02/04/22 17:13:00 EDT, See Instructions, Disp# 90 tab, Refills: 3, take 1 tablet by mouth once daily, Pharmacy: [id number] Start Date: 02/04/22 Status: Ordered Breo Ellipta 200 mcg-25 mcg/inh inhalation powder Start: 01/10/23 10:44:00 EDT, 1 puff, inhaled, Daily, Disp# 1 each Start Date: 01/10/23 Stop Date: 02/09/23 Status: Ordered desoximetasone 0.25% topical cream Start: 07/13/16 15:24:41, 1 appl, topical, bid, Disp# 60 g, Refills: 3, Pharmacy: [id number] Start Date: 07/13/16 Status: Ordered dilTIAZem 30 mg oral tablet Start: 05/02/22 14:50:00 EDT, See Instructions, Disp# 360 tab, Refills: 3, take 1 tablet by mouth four times a day, Pharmacy: [facility] #[id number] Start Date: 05/02/22 Status: Ordered furosemide 20 mg oral tablet Start: 01/27/23 15:47:00 EDT, 1 tab, PO, Daily Start Date: 01/27/23 Status: Ordered inhaler spacer Start: 06/25/19 14:26:00 EST, See Instructions, Disp# 1 each, Refills: 0, inhaler spacer for ventolin, Pharmacy: [id number] Start Date: 06/25/19 Status: Ordered Metoprolol Tartrate 25 mg oral tablet Start: 02/08/22 16:53:00 EDT, See Instructions, Disp# 180 tab, Refills: 4, take 1 tablet by mouth twice a day, Pharmacy: [facility] [place] [id number] Start Date: 02/08/22 Status: Ordered potassium chloride 20 mEq oral tablet, extended release Start: 06/25/19 14:26:00 EST, See Instructions, Disp# 30 tab, Refills: 11, 1 tab PO Daily as neededwith lasix for edema, Pharmacy: [id number] Start Date: 06/25/19 Status: Ordered simvastatin 20 mg oral tablet See Instructions, Disp# 90 tab, Refills: 3, take 1 tablet by mouth every other day., [facility] [place] [id number] Start Date: 11/08/21 Status: Ordered spironolactone 25 mg oral tablet Start: 01/19/23 10:29:00 EDT, 1 tab, PO, Daily, Disp# 30 tab, Refills: 3, Pharmacy: [facility] #[id number] Start Date: 01/19/23 Status: Ordered Vitamin B12 [...] tab, Refills: 3, Take 3 mg Mon, Mon, Mon.Take 2 mg on other days., Pharmacy: [facility] #[id number] Start Date: 07/28/22 Status: Ordered Problem List [...] Hernia, hiatal Confirmed 07/02/14 Active HYPERTENSION Confirmed 1/19/11 Active Impaired fasting glucose Confirmed 08/25/10 Active MIXED HYPERLIPIDEMIA Confirmed 08/25/10 Active Past history of procedure 4 Confirmed Active Senile hyperkeratosis Confirmed Active Weight disorder Confirmed Active 1sees Dr. Lai 2sees Dr. Lai 09:55 NILAY - ANIKET Pyle Whitney M pre and post spirometry Mild airflow obstruction without significant bronchodilator response [address]276: diverticulosis Procedures Procedure Date Related Diagnosis Body [...] Basic Metabolic Panel (BASIC METAB PANEL ) 02/09/23 NT-Pro BNP 02/09/23 Most recent to oldest [Reference Range]: 1 eGFR CKD-EPI [>60 mL/min/1.73 m2] 42 mL/ min/1.73 m2 1 *LOW* (02/09/23 2:08 PM) BNP, NT-Pro [<450 pg/mL] 1389 pg/mL *HI* (02/09/23 2:08 PM) Estimated CrCl 30.34 mL/min (02/09/23 2:45 PM) Anion Gap [5-14 mmol/L] 10 mmol/L (02/09/23 2:08 PM) BUN [7-20 mg/dL] 32 mg/dL *HI* (02/09/23 2:08 PM) Ca [8.4-10.2 mg/dL] 9.3 mg/dL (02/09/23 2:08 PM) Cl- [96-107 mmol/L] 104 mmol/L (02/09/23 2:08 PM) HCO3 [22-30 mmol/L] 25 mmol/L (02/09/23 2:08 PM) Cret [0.60-1.00 mg/dL] 1.22 mg/dL *HI* (02/09/23 2:08 PM) Glu [74-106 mg/dL] 110 mg/dL *HI* (02/09/23 2:08 PM) K [3.5-5.1 mmol/L] 4.8 mmol/L (02/09/23 2:08 PM) Na [137-145 mmol/L] 139 mmol/L (02/09/23 2:08 PM) 1Result Comment: Testing Performed By: [facility] [address], [address], [place] [address] Social History Social History Type Response Smoking Status Never smoked 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
--- NOTE | 2023-07-29 09:33 | Emergency Department Note ---
History of Present Illness General Chief complaint: Flu Like Symptoms Time Seen by Provider: 07/29/23 09:24 History of Present Illness Maximum Pain Intensity: 7 87-year-old female presents from home via EMS reportedly has a history of COPD is chronically on 2 L of oxygen states this past week she has had cough cold congestion symptoms and she states that her bilateral lower extremities ache. Patient called EMS today for generalized weakness. Patient denies any chest pain or significant shortness of breath denies nausea vomiting or diarrhea. There are no other mitigating or alleviating factors Home Medications Medication Instructions Recorded Confirmed Type albuterol sulfate 90 mcg/actuation 2 puff inhalation QID PRN 03/20/21 01/04/23 History aerosol inhaler Shortness Of Breath Or Wheezing allopurinol 100 mg tablet 100 mg PO QAM 03/20/21 01/04/23 History cholecalciferol (vitamin D3) 25 25 mcg PO QAM 03/20/21 01/04/23 History mcg (1,000 unit) capsule (Vitamin D3) diltiazem HCl 30 mg tablet 30 mg PO QID 03/20/21 01/04/23 History metoprolol tartrate 25 mg tablet 25 mg PO BID 03/20/21 01/04/23 History simvastatin 20 mg tablet 20 mg PO Q OTHER DAY 03/20/21 01/04/23 History warfarin 2 mg tablet See Rx Instructions .Route .COMPLEX 03/20/21 01/04/23 History meclizine 12.5 mg tablet 12.5 mg PO Q6H PRN vertigo #10 tabs 03/23/21 01/04/23 Rx Vitamin B12 Tab 2,500 mcg PO Q OTHER DAY 01/04/23 01/04/23 History fluticasone furoate 200 1 ea inhalation DAILY #60 ea 01/08/23 Rx mcg-vilanterol 25 mcg/dose inhalation powder (Breo Ellipta) furosemide 20 mg tablet (Lasix) 20 mg PO 3XWK #30 tabs 01/08/23 Rx Allergies Allergy/AdvReac Type Severity Reaction Status Date / Time Sulfa (Sulfonamide Allergy Intermediate RASH/GI Verified 01/04/23 12:33 Antibiotics) UPSET mercury (elemental) Allergy Mild RASH Verified 01/04/23 12:33 Penicillins Allergy Mild RASH Verified 01/04/23 12:33 hydromorphone AdvReac Intermediate ACTED Verified 01/04/23 12:33 STRANGE NSAIDS (Non-Steroidal AdvReac Intermediate INTERNAL Verified 01/04/23 12:33 Anti-Inflamma BLEEDING Past Med/Surg History Medical History Chronic diastolic heart failure COPD (chronic obstructive pulmonary disease) rarely needs inhaler Gout CAD (coronary artery disease) HTN (hypertension) Afib on warfarin daily -follows w/ Dr Lai last visit 06/2022 Surgical History Hx of cardiac catheterization about 15 yrs ago, no stents- [facility] History of esophagogastroduodenoscopy (EGD) Hx of colonoscopy Hx of cholecystectomy Hx of hysterectomy Family History Other No family history of adverse response to anesthesia Social History Smoking Status: Never smoker Second Hand Exposure: No; Do You Dip or Chew Tobacco: No; Hx Alcohol Use: No Hx Substance Use: No Preferred Language: Nicaraguan Communication Ability: Effective Communication Tools: Other Doormaker Required: Yes Beliefs That Will Affect Care: None marital status: / Current Living Situation: Alone Feels Safe at Home: Yes Assistive Devices: Cane, Glasses, Nebulizer and Raised Toilet Seat Review of Systems A total of 10 systems reviewed and were otherwise negative Constitutional: + fever and + body aches Respiratory: + cough and + dyspnea Physical Exam Vital Signs Vital Signs - 24 hr 07/29/23 09:27 07/29/23 09:29 07/29/23 09:31 Temperature 36.9 C Temperature Source Oral Pulse Rate 90 80 Pulse Rate [Apical] Respiratory Rate 18 Blood Pressure 118/81 Blood Pressure [Left Arm] Blood Pressure Mean 93 Blood Pressure Mean [Left Arm] Pulse Oximetry 97 97 Oxygen Delivery Method Nasal Cannula Room Air Oxygen Flow Rate 2 Sepsis Recent Fever Within 48 Hours No Sepsis New/Unexplained Change in Mental Status No Sepsis Action Taken by Nursing No Action Required 07/29/23 11:19 Temperature Temperature Source Pulse Rate Pulse Rate [Apical] 93 H Respiratory Rate 20 Blood Pressure Blood Pressure [Left Arm] 128/74 Blood Pressure Mean Blood Pressure Mean [Left Arm] 92 Pulse Oximetry 94 Oxygen Delivery Method Nasal Cannula Oxygen Flow Rate 2 Sepsis Recent Fever Within 48 Hours Sepsis New/Unexplained Change in Mental Status Sepsis Action Taken by Nursing GENERAL: Patient is awake alert in no acute distress patient is resting comfortably and showing no signs of anxiety EYES: The conjunctivae are clear. The pupils are round and reactive. EARS, NOSE, MOUTH AND THROAT: The nose is without any evidence of any deformity. Mucous membranes are moist. Tongue is midline. NECK: The neck is nontender and supple. RESPIRATORY: Normal respiratory effort is noted there is no evidence of wheezing rhonchi or rales CARDIOVASCULAR: Regular rate and rhythm noted there no murmurs rubs or gallops normal S1 normal S2. GASTROINTESTINAL: The abdomen is soft. Abdomen is nontender. BACK: No midline tenderness or or step-off noted range of motion in flexion extension as well as rotation no signs of muscle spasm noted MUSCULOSKELETAL/EXTREMITIES: There is no evidence of gross deformity full range of motion is noted in the hips and shoulders. SKIN: There is no obvious evidence of any rash. There are no petechiae, pallor or cyanosis noted. NEUROLOGIC: Patient is awake alert and oriented x3 strength is symmetric Course Reevaluation(s) Reevaluation #1: Patient was started on IV Rocephin. Patient has no current chest pain. Patient will also be treated with vitamin K Time: 11:50 Consultations Consultation #1: Case was discussed with the [facility] hospitalist for admission Time: 11:51 Medical Decision Making Medical Records Attestation: I reviewed the patient's medical records. Home Medications Current Medication List: was personally reviewed by me Laboratory Data Attestation: I reviewed the patient's lab results. Labs interpreted by me leukocytosis, elevated troponin, positive urinalysis 07/29/23 09:50 07/29/23 09:50 Lab Results 07/29/23 07/29/23 07/29/23 Range/Units 09:50 10:01 11:10 WBC 26.53 H (4.8-10.8) K/ul RBC 4.99 (4.20-5.40) M/uL Hgb 16.0 (12.0-16.0) g/dl Hct 47.5 H (37.0-47.0) % MCV 95.2 (80.0-100.0) fL MCH 32.1 (25.0-34.0) pg MCHC 33.7 (32.0-36.0) g/dL RDW Std Deviation 43.0 (36.4-46.3) fL RDW Coeff of Andrews 12.1 (11.5-14.5) % Plt Count 308 (130-400) K/uL MPV 9.5 (9.4-12.4) fL Immature Gran % (Auto) 3.5 % Neut % (Auto) 84.6 % Lymph % (Auto) 3.1 % Kingfisher % (Auto) 7.5 % Eos % (Auto) 0.6 % Baso % (Auto) 0.7 % Neut # (Auto) 22.45 H (1.40-6.50) K/uL Lymph # (Auto) 0.82 L (1.20-3.40) K/uL Kingfisher # (Auto) 1.98 H (0.11-0.59) K/uL Eos # (Auto) 0.16 (0.00-0.50) K/uL Baso # (Auto) 0.19 (0.00-0.20) K/uL Immature Gran # (Auto) 0.93 H (0.01-0.20) K/uL RBC Morphology Unremarkable PT > 90.0 H (9.0-12.0) Seconds INR > 9.5 H* (0.9-1.1) APTT 79 H (21-31) Seconds PTT Ratio 2.8 Sodium 131 L (136-145) mmol/L Potassium 4.3 (3.5-5.1) mmol/L Chloride 96 L (98-107) mmol/L Carbon Dioxide 28 (21-32) mmol/L Anion Gap 7 (3-11) BUN 35 H (6-23) mg/dl Creatinine 1.09 (0.6-1.2) mg/dl Est Cr Clr Drug Dosing 34.8 ml/min Est GFR ( Amer) 52.1 ml/min Est GFR (Non-Af Amer) 45.0 ml/min BUN/Creatinine Ratio 32.1 H (10-20) Glucose 118 H (70-99(Fasting)) mg/dl Lactate 1.8 (0.4-2.0) mmol/L Calcium 9.0 (8.6-10.3) mg/dl Magnesium 1.7 (1.7-2.4) mg/dl Total Bilirubin 1.0 (0.2-1.0) mg/dl Direct Bilirubin 0.4 H (0-0.2) mg/dl AST 23 (13-39) U/L ALT 22 (7-52) U/L Alkaline Phosphatase 158 H (34-104) U/L Troponin I High Sens 71.1 H* (0-14) pg/ml Total Protein 6.6 (6.0-8.3) gm/dl Albumin 2.7 L (3.4-5.0) gm/dl Procalcitonin 0.66 H (0-0.5) ng/ml Urine Color Dark Yellow Urine Appearance Clear (Clear) Urine pH 5.5 (4.5-7.5) Ur Specific [place] 1.022 (1.000-1.030) Urine Protein 1+ H (Negative) Urine Glucose (UA) Negative (Negative) Urine Ketones Trace H (Negative) Urine Blood 1+ H (Negative) Urine Nitrite Positive A (Negative) Urine Bilirubin Negative (Negative) Urine Urobilinogen Negative (Negative) Ur Leukocyte Esterase 1+ H (Negative) Urine WBC (Auto) 10-30 H (0-5) /hpf Urine RBC (Auto) 0-4 (0-4) /hpf U Hyaline Cast (Auto) 1-5 (0-5) /lpf U Epithel Cells (Auto) 0-5 (0-5) /lpf Urine Bacteria (Auto) 2+ H (Negative) SARS-CoV-2 (PCR) NEGATIVE (Negative) Influenza Type A (PCR) Negative (Neg) Influenza Type B (PCR) Negative (Neg) RSV (RT-PCR) Negative (Neg) Imaging Data Attestation: I personally reviewed and interpreted this imaging study as follows: My Impression: Chest x-ray interpreted by me COPD changes Radiologist's Impression: Chest X-Ray 07/29/23 09:28 XR chest 1V portable CLINICAL HISTORY: Sepsis. COMPARISON STUDY: Chest radiograph January 04, 2023. Chest CT January 06, 2023. FINDINGS: Lung volumes are normal. Lungs are clear. There is no pneumothorax or pleural effusion. Moderate cardiomegaly is unchanged. Mediastinal contours are normal. There is no evidence for pulmonary edema. IMPRESSION: No acute cardiopulmonary findings. Stable cardiomegaly. ACT 112: Negative or not required by law. Electronically signed by: Ethan Hinton M.D. 07/29/2023 9:39 AM ECG Data Attestation: I personally reviewed and interpreted this ECG as follows: Additional Comments: EKG interpreted by me atrial fibrillation versus poor baseline with sinus rhythm rate of 88 poor R wave progression the precordium no obvious ST segment elevation or depression normal axis Telemetry was ordered by me, interpreted as sinus rhythm rate of 88 MDM Narrative Medical decision making differential diagnosis includes sepsis, pneumonia, bronchitis, upper respiratory tract infection, electrolyte abnormality, metabolic derangement, COPD exacerbation Plan is to check labs EKG, sepsis protocol, respiratory swab I did review a discharge summary of January 08, 2023 in which the patient was admitted to our facility for COPD and hypoxia Patient has an elevated troponin but a stable A-fib EKG that is nonischemic, patient has a urinary tract infection was started on Rocephin patient is not septic shock at the time of admission at 11:50 AM. Patient also has a over anticoagulated state. Patient will receive vitamin K Impression & Plan Sepsis, Elevated troponin, Acute UTI (urinary tract infection) Discharge Plan Visit Data Chief Complaint: Flu Like Symptoms ED Provider: Deangelo Leslie Discharge Problem: Sepsis, Elevated troponin, Acute UTI (urinary tract infection) Patient Disposition: Admitted As Inpatient Forms Stand Alone Forms: My [facility] Prescriptions Prescriptions: No Action allopurinol 100 mg tablet 100 mg PO QAM simvastatin 20 mg tablet 20 mg PO Q OTHER DAY Rx Instructions: pm warfarin 2 mg tablet See Rx Instructions .ROUTE .COMPLEX Rx Instructions: 3 mg; MON, WED, FRI; 2 MG ON OTHER DAYS albuterol sulfate 90 mcg/actuation HFA aerosol inhaler 2 puff INHALATION QID PRN (Reason: Shortness Of Breath Or Wheezing) diltiazem HCl 30 mg tablet 30 mg PO QID cholecalciferol (vitamin D3) [Vitamin D3] 25 mcg (1,000 unit) Capsule 25 mcg PO QAM metoprolol tartrate 25 mg tablet 25 mg PO BID meclizine 12.5 mg tablet 12.5 mg PO Q6H PRN (Reason: vertigo) Qty: 10 0RF Vitamin B12 Tab 2,500 mcg PO Q OTHER DAY fluticasone furoate-vilanterol [Breo Ellipta] 200-25 mcg/dose Blister With Device 1 ea inhalation DAILY Qty: 60 2RF furosemide [Lasix] 20 mg tablet 20 mg PO 3XWK Qty: 30 0RF Referrals Referrals: Eric Rosa MD [Primary Care Provider] -
--- NOTE | 2023-07-29 09:41 | XRay Report ---
XR chest 1V portable CLINICAL HISTORY: Sepsis. COMPARISON STUDY: Chest radiograph January 04, 2023. Chest CT January 06, 2023. FINDINGS: Lung volumes are normal. Lungs are clear. There is no pneumothorax or pleural effusion. Mod erate cardiomegaly is unchanged. Mediastinal contours are normal. There is no evidence for pulmonary edema. IMPRESSION: No acute cardiopulmonary findings. Stable cardiomegaly. ACT 112: Negative or not required by law. Electronically signed by: Ethan Hinton M.D. 07/29/2023 9:39 AM
[2023-07-29 10:12] LABS: Hematocrit (blood only) 47.5 % (37.0-47.0); Mean Corpuscular Hemoglobin 32.1 pg (25.0-34.0); Mean Corpuscular Hgb Conc 33.7 g/dL (32.0-36.0); Mean Corpuscular Volume 95.2 fL (80.0-100.0); Mean Platelet Volume 9.5 fL (9.4-12.4); Platelet Count 308 K/uL (130-400); RDW Coefficient of Variation 12.1 % (11.5-14.5); Red Blood Count 4.99 M/uL (4.20-5.40); White Blood Count 26.53 K/ul (4.8-10.8)
[2023-07-29 10:30] LABS: Albumin Level 2.7 gm/dl (3.4-5.0); BUN Creatinine Ratio 32.1 (10-20); Bilirubin Direct 0.4 mg/dl (0-0.2); Creatinine Clr Calc Pharmacy 34.8 ml/min; Est GFR (African American) 52.1 ml/min; Magnesium 1.7 mg/dl (1.7-2.4); Potassium 4.3 mmol/L (3.5-5.1); Total Protein 6.6 gm/dl (6.0-8.3)
[2023-07-29 10:42] LABS: Basophils # (auto) 0.19 K/uL (0.00-0.20); Basophils % (auto) 0.7 %; Eosinophils # (auto) 0.16 K/uL (0.00-0.50); Eosinophils % (auto) 0.6 %; Immature Granulocytes # (auto) 0.93 K/uL (0.01-0.20); Immature Granulocytes % (auto) 3.5 %; Lymphocytes # (auto) 0.82 K/uL (1.20-3.40); Lymphocytes % (auto) 3.1 %; Monocytes # (auto) 1.98 K/uL (0.11-0.59); Monocytes % (auto) 7.5 %; Neutrophils # (auto) 22.45 K/uL (1.40-6.50); Neutrophils % (auto) 84.6 %; RBC Morphology Unremarkable
[2023-07-29 10:57] LABS: Troponin I High Sensitivity 71.1 pg/ml (0-14)
[2023-07-29 11:05] LABS: Partial Thromboplastin Ratio 2.8; Partial Thromboplastin Time 79 Seconds (21-31); Prothrombin Time > 90.0 Seconds (9.0-12.0)
[2023-07-29 11:13] LABS: Influenza A virus by PCR Negative (Neg); Influenza B virus by PCR Negative (Neg); RSV by PCR Negative (Neg); SARS CoV2 RNA(COVID-19) Ceph NEGATIVE (Negative)
[2023-07-29 11:20] LABS: INR > 9.5 (0.9-1.1)
[2023-07-29 11:29] LABS: Appearance Urine Clear (Clear); Bacteria Urine Automated 2+ (Negative); Bilirubin Urine Negative (Negative); Blood Urine 1+ (Negative); Color Urine Dark Yellow; Epithelial Cell Urine Auto 0-5 /lpf (0-5); Glucose Urine UA Negative (Negative); Ketones Urine Trace (Negative); Leukocyte Esterase Urine 1+ (Negative); Nitrite Urine Positive (Negative); Protein Urine 1+ (Negative); RBC Urine Automated 0-4 /hpf (0-4); Specific Gravity Urine 1.022 (1.000-1.030); Urobilinogen Urine Negative (Negative); pH Urine 5.5 (4.5-7.5)
--- NOTE | 2023-07-29 11:42 | History & Physical Report ---
Date of Service July 29, 2023 Assessment & Plan (1) Giant cell arteritis: Plan: Patient initially presented with general feeling of chills, unwellness, and diffuse muscle aches. Initially denied vision change but notes that she did have some slight double vision which has not changed in the last 2 weeks and has poor acuity at baseline, but no field cuts. 1 week of tender swollen inflamed temporal artery see photo in admitting H&P Age > 50, elevated ESR and CRP, with elevated leukocytosis and Pro-Wolfgang (this can be elevated and vasculitis) Has no other localizing infectious symptoms. Denies cough/respiratory symptoms. does have myalgias as noted and tickborne serology are pending but no rashes or bites. Her UA is potentially infected and she endorses incontinence but this has not changed and she is without dysuria/urgency. Suspect that this is asymptomatic bacteriuria & does not explain elevated inflammatory markers and acute temporal artery changes. She is increased risk and is incontinent at baseline, due to fevers/incontinence/leukocytosis with high dose steroid use will continue Rocephin empirically pending UC; discontinue if mixed ramone/culture or low counts. Temporal artery biopsy currently contraindicated due to supratherapeutic INR greater than 10. Patient did receive vitamin K, allow INR to downtrend. Once INR is less than 2 can bridge to heparin temporarily which can then be held periprocedurally to allow for temporal artery biopsy. Consult surgery once INR is appropriate Discussed with desiree/Dr. Piedra. Agree w/ treatment and high dose steroids. Even with steroids biopsy with good yield out up to 2 to 4 weeks on steroids; agrees with starting treatment empirically with high-dose due to concern for visual change and getting biopsy when able. Temporal CD US is not available Methylprednisolone 1 g x 3 days, then 60 mg daily Steroids as noted below, hep B/hep C/QuantiFERON ordered for rheumatology in case Actemra is pursued. Appreciate recommendation Will need rheumatology follow-up upon discharge. Anticipate at least 3-day stay for high-dose steroids and bx (2) Supratherapeutic INR: Plan: - INR > 10 on admit - No bleeding on admit - Vitamin K given 5mg -Follow clinically for signs of bleeding When INR has down trended < 2 --> start heparin gtt and hold around temp biopsy as noted (3) Afib: Plan: EKG A-fib rate controlled without acute ischemic change Troponin mildly elevated, down trended suspect stress Patient clinically slightly dry, 500 cc bolus given diuretics/additional IV fluids both deferred Continue metoprolol Warfarin/anticoagulation as noted (4) HTN (hypertension): Plan: Continue home med (5) CAD (coronary artery disease): Plan: Troponin as noted, suspected demand no acute ischemic changes No chest pain with exertion, patient denies recent chest pain with exertion or at rest (6) Acute UTI (urinary tract infection): Plan: - UA infected appearing - Ceftriaxone continued, follow UC Plan DVT PPx: INR supratherapeutic Diet: HH, NPO when bx expected Dispo: M/T Code: Full Code History of Present Illness Primary Care Provider: Eric Rosa MD warfarin 3mg daily. NO dose changes in the last few weeks, stable last 3-4 monthly checks Denies fevers, but has had some chills at night and has woken up feeling slightly sweaty a few times without shaking chills or rigors Has some swelling of blood vessles on the forehead for a few weeks, a little tender with being achy allover in the last week. Initially denies headache and vision change, on further history clarifies that she does have some aching at her temples and also noticed that her vision has been a little more blurry with maybe a little diagonal double vision for the last 2 weeks but this has not changed or further worsened or improved in the last 2 weeks. Patient notes that she was going to follow-up to have her eyeglasses checked but had not yet done this Feels very weak last few days. Took some ibuprofen which helped but has woken up with some sweats once or twice Baseline has some shortness of breath with exertion, but no change. No cough. No sputum production. Has had 1 UTI previously. [facility]. She is incontinent at baseline, the past week she 'got a little scared' because she had a dry pad for a while and still felt like she had to go but was going a little less. No burning, no abdominal pain. Has been achy all over for the last week. Endorses diffuse myalgias in the last week, no leg/arm/joint swelling. Eating OK, has not had much to drink and is very thirsty. No diarrhea. +constipation, last BM x3 days. Denies history of autoimmune disease in self or family. No rashes or tick bites to her knowledge No chest pain or chest pressure. No chest pain on exertion. NO chest pain currently. Medical History: Reviewed Medications: Reviewed Surgical History: Reviewed Family history: Reviewed Allergies: Reviewed Social History: No tobacco product use. No etoh use. Code Status: Surrogate JUSTYNA Kapoor (nerehana). Full Code Allergies Allergy/AdvReac Type Severity Reaction Status Date / Time Sulfa (Sulfonamide Allergy Intermediate RASH/GI Verified 01/04/23 12:33 Antibiotics) UPSET mercury (elemental) Allergy Mild RASH Verified 01/04/23 12:33 Penicillins Allergy Mild RASH Verified 01/04/23 12:33 hydromorphone AdvReac Intermediate ACTED Verified 01/04/23 12:33 STRANGE NSAIDS (Non-Steroidal AdvReac Intermediate INTERNAL Verified 01/04/23 12:33 Anti-Inflamma BLEEDING Home Medications Medication Instructions Recorded Confirmed Type albuterol sulfate 90 mcg/actuation 2 puff inhalation QID PRN 03/20/21 01/04/23 History aerosol inhaler Shortness Of Breath Or Wheezing allopurinol 100 mg tablet 100 mg PO QAM 03/20/21 07/29/23 History cholecalciferol (vitamin D3) 25 25 mcg PO QAM 03/20/21 01/04/23 History mcg (1,000 unit) capsule (Vitamin D3) diltiazem HCl 30 mg tablet 30 mg PO QID 03/20/21 01/04/23 History (Cardizem) metoprolol tartrate 25 mg tablet 25 mg PO BID 03/20/21 07/29/23 History simvastatin 20 mg tablet 20 mg PO Q OTHER DAY 03/20/21 07/29/23 History warfarin 2 mg tablet See Rx Instructions .Route .COMPLEX 03/20/21 01/04/23 History meclizine 12.5 mg tablet 12.5 mg PO Q6H PRN vertigo #10 tabs 03/23/21 07/29/23 Rx Vitamin B12 Tab 2,500 mcg PO Q OTHER DAY 01/04/23 01/04/23 History fluticasone furoate 200 1 ea inhalation DAILY #60 ea 01/08/23 07/29/23 Rx mcg-vilanterol 25 mcg/dose inhalation powder (Breo Ellipta) furosemide 20 mg tablet (Lasix) 20 mg PO 3XWK #30 tabs 01/08/23 07/29/23 Rx fluticasone propionate 50 2 spray intranasal DAILY 07/29/23 07/29/23 History mcg/actuation nasal spray,suspension Past Med/Surg History Medical History Chronic diastolic heart failure COPD (chronic obstructive pulmonary disease) rarely needs inhaler Gout CAD (coronary artery disease) HTN (hypertension) Afib on warfarin daily -follows w/ Dr Lai last visit 06/2022 Surgical History Hx of cardiac catheterization about 15 yrs ago, no stents- [facility] History of esophagogastroduodenoscopy (EGD) Hx of colonoscopy Hx of cholecystectomy Hx of hysterectomy Family History Other No family history of adverse response to anesthesia Social History Smoking Status: Never smoker Second Hand Exposure: No; Do You Dip or Chew Tobacco: No; Hx Alcohol Use: No Hx Substance Use: No Preferred Language: Spanish Communication Ability: Effective Communication Tools: Other Welder Experimental Required: Yes Beliefs That Will Affect Care: None marital status: / Current Living Situation: Alone Feels Safe at Home: Yes Assistive Devices: Cane, Glasses, Nebulizer and Raised Toilet Seat Physical Exam 2 Physical Exam: General: A&Ox3. NAD. Cooperative. HEENT: See photo below. Otherwise atraumatic. Vision with decreased acuity at baseline, pt reports mild diplopia diagonal unchanged in prior 2 weeks. No visual field cuts. PERLAA. Hearing grossly intact Pulm: CTAB A&P. -wheezes, -rales, -rhonchi. Symmetrical chest rise. No increased work of breathing. No respiratory distress. Cardiac: RRR, +sm. Radial pulses intact and symmetrical. Abdominal: Nontender, nondistended, soft. BS present. Ext: warm, dry. Results & Data Results & Data Vital Signs (Past 12 Hours) Vital Signs Temp Pulse Resp BP Pulse Ox O2 Del Method O2 Flow Rate 07/29/23 09:31 80 07/29/23 09:29 97 Room Air 07/29/23 09:27 36.9 C 90 18 118/81 97 Nasal Cannula 2 PG Care Time/CCT Total # of Minutes Spent Total Time Spent with Patient: Total time spent is greater than 50% in coordination of care (as documented) at patient's floor/unit and/or counseling patient: Coding Level of Care Code 22348 INT INP/OBS CARE 3/75MIN Diagnoses Giant cell arteritis M31.6 Supratherapeutic INR R79.1 Afib I48.91 HTN (hypertension) I10 Hypertension type: unspecified CAD (coronary artery disease) I25.10 Acute UTI (urinary tract infection) N39.0 (4) HTN (hypertension) Hypertension type: unspecified Qualified Code(s): I10 - Essential (primary) hypertension
[2023-07-29] MEDS ORDERED: PHYTONADIONE 5 MG TAB PO STA (11:47)
[2023-07-29] MEDS ORDERED: cefTRIAXone SODIUM 2,000 MG/50 ML BAG IV STA (11:48)
[2023-07-29] MEDS ORDERED: MAGNESIUM SULFATE / D5W 1 GM/100 ML BAG IV ONE (12:22)
[2023-07-29] MEDS ORDERED: PLASMA-LYTE A 500 ML IV ONE (12:28)
[2023-07-29 12:32] LABS: Troponin I High Sensitivity 67.8 pg/ml (0-14)
[2023-07-29 12:42] LABS: C Reactive Protein 30.15 mg/dl (0-0.5)
[2023-07-29 12:55] LABS: Lyme Ab IgG w/WB Rflx Negative (Negative); Lyme Ab IgM w/WB Rflx Negative (Negative)
[2023-07-29] MEDS ORDERED: methylPREDNISolone 1,000 MG in DEXTROSE 5% 250 ML IV STA (13:41)
[2023-07-29] MEDS ORDERED: ACETAMINOPHEN 325 MG TAB PO PRN (14:55)
[2023-07-29] MEDS: dilTIAZem HCL 30 MG TAB PO SCH ×3 (15:21→21:13)
[2023-07-29] MEDS: SIMVASTATIN 20 MG TAB PO SCH (21:13)
[2023-07-29] MEDS: METOPROLOL TARTRATE 25 MG TAB PO SCH (21:13)
[2023-07-30 06:39] LABS: Hematocrit (blood only) 42.8 % (37.0-47.0); Hemoglobin 14.5 g/dl (12.0-16.0); Mean Corpuscular Hemoglobin 31.8 pg (25.0-34.0); Mean Corpuscular Hgb Conc 33.9 g/dL (32.0-36.0); Mean Corpuscular Volume 93.9 fL (80.0-100.0); Mean Platelet Volume 9.8 fL (9.4-12.4); Platelet Count 305 K/uL (130-400); RDW Coefficient of Variation 12.1 % (11.5-14.5); RDW Standard Deviation 42.2 fL (36.4-46.3); Red Blood Count 4.56 M/uL (4.20-5.40); White Blood Count 20.15 K/ul (4.8-10.8)
[2023-07-30 07:06] LABS: Basophils # (auto) 0.09 K/uL (0.00-0.20); Basophils % (auto) 0.4 %; Eosinophils # (auto) 0.08 K/uL (0.00-0.50); Eosinophils % (auto) 0.4 %; Immature Granulocytes # (auto) 0.59 K/uL (0.01-0.20); Immature Granulocytes % (auto) 2.9 %; Lymphocytes # (auto) 0.64 K/uL (1.20-3.40); Lymphocytes % (auto) 3.2 %; Monocytes % (auto) 1.5 %; Neutrophils # (auto) 18.45 K/uL (1.40-6.50); Neutrophils % (auto) 91.6 %
[2023-07-30 07:12] LABS: BUN Creatinine Ratio 35.2 (10-20); Calcium 8.7 mg/dl (8.6-10.3); Creatinine Clr Calc Pharmacy 34.8 ml/min; Est GFR (African American) 52.7 ml/min; Est GFR (Non-African American) 45.5 ml/min; Potassium 4.6 mmol/L (3.5-5.1)
[2023-07-30] MEDS: FLUTICASONE/VILANTEROL 200/25MCG 14 PUFFS/INHALER INH SCH (08:51)
[2023-07-30] MEDS: dilTIAZem HCL 30 MG TAB PO SCH ×4 (08:52→21:11)
[2023-07-30] MEDS: allopurinoL 100 MG TAB PO SCH (08:52)
[2023-07-30] MEDS: METOPROLOL TARTRATE 25 MG TAB PO SCH ×2 (08:52→21:11)
[2023-07-30 08:54] LABS: INR 5.3 (0.9-1.1); Prothrombin Time 51.9 Seconds (9.0-12.0)
[2023-07-30] MEDS ORDERED: methylPREDNISolone 1,000 MG in DEXTROSE 5% 250 ML IV SCH (09:00)
--- NOTE | 2023-07-30 12:30 | Hospitalist Progress Note ---
Date of Service July 30, 2023 Assessment & Plan (1) Giant cell arteritis: Plan: Patient initially presented with general feeling of chills, unwellness, and diffuse muscle aches. Initially denied vision change but notes that she did have some slight double vision which has not changed in the last 2 weeks and has poor acuity at baseline, but no field cuts. 1 week of tender swollen inflamed temporal artery see photo in admitting H&P Age > 50, elevated ESR and CRP, with elevated leukocytosis and Pro-Wolfgang (this can be elevated and vasculitis) Has no other localizing infectious symptoms. Denies cough/respiratory symptoms. does have myalgias as noted and tickborne serology are pending but no rashes or bites. Her UA is potentially infected and she endorses incontinence but this has not changed and she is without dysuria/urgency. Suspect that this is asymptomatic bacteriuria & does not explain elevated inflammatory markers and acute temporal artery changes. She is increased risk and is incontinent at baseline, due to fevers/incontinence/leukocytosis with high dose steroid use will continue Rocephin empirically pending UC; discontinue if mixed ramone/culture or low counts. Temporal artery biopsy currently contraindicated due to supratherapeutic INR greater than 10. Patient did receive vitamin K, allow INR to downtrend. Once INR is less than 2 can bridge to heparin temporarily which can then be held periprocedurally to allow for temporal artery biopsy. Consult surgery once INR is appropriate Discussed with desiree/Dr. Piedra. Agree w/ treatment and high dose steroids. Even with steroids biopsy with good yield out up to 2 to 4 weeks on steroids; agrees with starting treatment empirically with high-dose due to concern for visual change and getting biopsy when able. Temporal CD US is not available Methylprednisolone 1 g x 3 days, then 60 mg daily Steroids as noted, hep B/hep C/QuantiFERON ordered for rheumatology in case Actemra is pursued. Appreciate recommendation Will need rheumatology follow-up upon discharge. Anticipate at least 3-day stay for high-dose steroids 07/29-07/31 and bx 07/30 is clinically improving and feels aches, pains and overall energy are much better (2) Supratherapeutic INR: Plan: - INR > 10 on admit - No bleeding on admit - Vitamin K given 5mg -Follow clinically for signs of bleeding When INR has down trended < 2 --> start heparin gtt and hold around temp biopsy as noted INR currently 5.4, trended daily (3) Afib: Plan: EKG A-fib rate controlled without acute ischemic change Troponin mildly elevated, down trended suspect stress Patient clinically slightly dry, 500 cc bolus given diuretics/additional IV fluids both deferred Continue metoprolol Warfarin/anticoagulation as noted (4) HTN (hypertension): Plan: Continue home med (5) CAD (coronary artery disease): Plan: Troponin as noted, suspected demand no acute ischemic changes No chest pain with exertion, patient denies recent chest pain with exertion or at rest (6) Acute UTI (urinary tract infection): Plan: - UA infected appearing - Ceftriaxone continued, follow UC (7) Hyponatremia: Plan: 128, asymptomatic 07/30 ? A slight depletion versus SIADH Urine sodium/osmolality/serum osmolality pending. Heart healthy diet liberalized Trended Plan DVT PPx: INR supratherapeutic Diet: HH, NPO when bx expected Dispo: M/T Code: Full Code Admission and Anticipated Discharge Date Admission Date: July 29, 2023 Subjective Seen at the bedside. She reports that she feels much better than the prior day, achiness is more than 50% improved, and overall has more energy. She reports she did have trouble sleeping in the hospital which is loud otherwise has no acute concerns or complaints. No vision change. Has not had any further fever/chills/sweats, no shortness of breath, no chest pain, no dysuria. Review of Systems Review of Systems: All systems reviewed & are unremarkable except as noted in Subjective Physical Exam Physical Exam: General: A&Ox3. NAD. Cooperative. HEENT: Atraumatic, normocephalic. Visual acuity grossly intact, hearing grossly intact. No visual change compared to prior. Right temporal artery with improved erythema compared to prior Pulm: CTAB A&P. -wheezes, -rales, -rhonchi. Symmetrical chest rise. No increased work of breathing. No respiratory distress. Cardiac: RRR, -mrg. Radial pulses intact and symmetrical. Abdominal: Nontender, nondistended, soft. BS present. 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 Sensation grossly intact to soft touch in hands and feet bilaterally Results & Data Results & Data Vital Signs (Past 12 Hours) Vital Signs Temp Pulse Pulse Resp BP Pulse Ox O2 Del Method 07/30/23 11:39 36.3 C L 76 16 125/77 96 Nasal Cannula 07/30/23 11:25 Nasal Cannula 07/30/23 07:55 36.3 C L 77 16 115/68 94 Nasal Cannula 07/30/23 03:58 36.3 C L 70 16 132/65 93 Nasal Cannula 07/30/23 02:36 66 O2 Flow Rate 07/30/23 11:39 2 07/30/23 11:25 2 07/30/23 07:55 2 07/30/23 03:58 2 07/30/23 02:36 PG Care Time/CCT Total # of Minutes Spent Total Time Spent with Patient: Total time spent is greater than 50% in coordination of care (as documented) at patient's floor/unit and/or counseling patient: Coding Level of Care Code 89010 SUB INP/OBS CARE 3/50MIN Diagnoses Giant cell arteritis M31.6 Supratherapeutic INR R79.1 Afib I48.91 HTN (hypertension) I10 Hypertension type: unspecified CAD (coronary artery disease) I25.10 Acute UTI (urinary tract infection) N39.0 Hyponatremia E87.1 (4) HTN (hypertension) Hypertension type: unspecified Qualified Code(s): I10 - Essential (primary) hypertension
[2023-07-30] MEDS: methylPREDNISolone 1,000 MG in DEXTROSE 5% 250 ML IV SCH (13:25)
[2023-07-30] MEDS: PANTOprazole 40 MG TAB PO SCH (16:44)
[2023-07-30] MEDS: cefTRIAXone SODIUM 2,000 MG in DEXTROSE 5 % MINI-B 50 ML IV SCH (16:45)
--- NOTE | 2023-07-30 20:34 | Electrocardiogram Report ---
Test Reason : Blood Pressure : / mmHG Vent. Rate : 088 BPM Atrial Rate : 000 BPM P-R Int : 000 ms QRS Dur : 082 ms QT Int : 380 ms P-R-T Axes : 000 062 067 degrees QTc Int : 459 ms Atrial fibrillation Septal infarct (cited on or before 29-JUL-2023) Abnormal ECG When compared with ECG of 04-JAN-2023 09:03, Vent. rate has increased BY 38 BPM Nonspecific T wave abnormality has replaced inverted T waves in Inferior leads Nonspecific T wave abnormality now evident in Anterolateral leads Confirmed by Gurinder Crum ([id number]) on 07/30/2023 8:34:22 PM Referred By: REFERRED SELF Confirmed By:Gurinder Crum
[2023-07-31 07:52] LABS: Hemoglobin 13.8 g/dl (12.0-16.0); Mean Corpuscular Hemoglobin 32.2 pg (25.0-34.0); Mean Corpuscular Hgb Conc 35.4 g/dL (32.0-36.0); Mean Corpuscular Volume 90.9 fL (80.0-100.0); Mean Platelet Volume 9.9 fL (9.4-12.4); Platelet Count 339 K/uL (130-400); RDW Coefficient of Variation 12.2 % (11.5-14.5); RDW Standard Deviation 40.3 fL (36.4-46.3); Red Blood Count 4.29 M/uL (4.20-5.40); White Blood Count 22.81 K/ul (4.8-10.8)
[2023-07-31] MEDS: PANTOprazole 40 MG TAB PO SCH (08:09)
[2023-07-31] MEDS: METOPROLOL TARTRATE 25 MG TAB PO SCH ×2 (08:10→20:29)
[2023-07-31] MEDS: dilTIAZem HCL 30 MG TAB PO SCH ×2 (08:10→12:59)
[2023-07-31] MEDS: allopurinoL 100 MG TAB PO SCH (08:10)
[2023-07-31] MEDS: FLUTICASONE/VILANTEROL 200/25MCG 14 PUFFS/INHALER INH SCH (08:10)
[2023-07-31 08:18] LABS: BUN Creatinine Ratio 30.7 (10-20); Calcium 8.7 mg/dl (8.6-10.3); Creatinine Clr Calc Pharmacy 20.1 ml/min; Est GFR (African American) 26.8 ml/min; Est GFR (Non-African American) 23.1 ml/min; Potassium 5.1 mmol/L (3.5-5.1)
[2023-07-31 08:20] LABS: Basophils # (auto) 0.05 K/uL (0.00-0.20); Basophils % (auto) 0.2 %; INR 3.7 (0.9-1.1); Immature Granulocytes % (auto) 2.2 %; Lymphocytes # (auto) 0.78 K/uL (1.20-3.40); Lymphocytes % (auto) 3.4 %; Monocytes # (auto) 0.75 K/uL (0.11-0.59); Monocytes % (auto) 3.3 %; Neutrophils # (auto) 20.73 K/uL (1.40-6.50); Neutrophils % (auto) 90.9 %; Polychromasia 1+; Prothrombin Time 37.3 Seconds (9.0-12.0); Tear Drop Cells 1+
[2023-07-31] MEDS: methylPREDNISolone 1,000 MG in DEXTROSE 5% 250 ML IV SCH (12:57)
--- NOTE | 2023-07-31 13:00 | Hospitalist Progress Note ---
Date of Service July 31, 2023 Assessment & Plan (1) Giant cell arteritis: Plan: Patient initially presented with general feeling of chills, unwellness, and diffuse muscle aches. Initially denied vision change but notes that she did have some slight double vision which has not changed in the last 2 weeks and has poor acuity at baseline, but no field cuts. 1 week of tender swollen inflamed temporal artery see photo in admitting H&P Age > 50, elevated ESR and CRP, with elevated leukocytosis and Pro-Wolfgang (this can be elevated and vasculitis) Temporal artery biopsy currently contraindicated due to supratherapeutic INR greater than 10. Patient did receive vitamin K, allow INR to downtrend. Once INR is less than 2 can bridge to heparin temporarily which can then be held periprocedurally to allow for temporal artery biopsy. Consult surgery once INR is appropriate Discussed with desiree/Dr. Piedra on admission. Agree w/ treatment and high dose steroids. Even with steroids biopsy with good yield out up to 2 to 4 weeks on steroids; agrees with starting treatment empirically with high-dose due to concern for visual change and getting biopsy when able. Temporal CD US is not available Methylprednisolone 1 g x 3 days, then 60 mg daily Steroids as noted, hep B/hep C/QuantiFERON ordered for rheumatology in case Actemra is pursued. Appreciate recommendation Will need rheumatology follow-up upon discharge. Anticipate at least 3-day stay for high-dose steroids 07/29-07/31 and bx 07/31 continues to improve clinically (2) Supratherapeutic INR: Plan: - INR > 10 on admit - No bleeding on admit - Vitamin K given 5mg -Follow clinically for signs of bleeding When INR has down trended < 2 --> start heparin gtt and hold around temp biopsy as noted INR currently 3.7, trended daily (3) Hyponatremia: Plan: 125, asymptomatic 07/31 Urine studies suggest GI loss, tea-toast diet, reduced PO intake as she feels her volume is down from usual Urine Na/osm repeated as she is neither significant hyper or hypovolemic on exam Fluid restrict 1L As she feels her volume is down which fits with Cr also rising will start NSS and watch sodium closely (4) Afib: Plan: EKG A-fib rate controlled without acute ischemic change Troponin mildly elevated, down trended suspect stress Patient clinically slightly dry, 500 cc bolus given diuretics/additional IV fluids both deferred Continue metoprolol Warfarin/anticoagulation as noted (5) HTN (hypertension): Plan: Hold diltiazem, hold parameters mean this and metoprolol was being skipped inter mittently anyway Continue metoprolol Holding furosemide (6) CAD (coronary artery disease): Plan: Troponin as noted, suspected demand no acute ischemic changes No chest pain with exertion, patient denies recent chest pain with exertion or at rest (7) Acute UTI (urinary tract infection): Plan: Urine culture with E. coli resistant to ampicillin/Unasyn No symptoms but agree with treating in setting of non-specific symptoms and high dose steroids - Continue ceftriaxone (8) Chronic respiratory failure with hypoxia: Plan: On baseline 2LPM O2 No acute finding on CXR Plan DVT PPx: INR supratherapeutic Diet: HH, NPO when bx expected Dispo: M/T Code: Full Code Admission and Anticipated Discharge Date Admission Date: July 29, 2023 Subjective Improvement in right sided temporal artery swelling and pain. She feels her taste has been off and if not finding water appetizing - COVID test on admission negative. Sodium continues to get worse. No nausea, vomiting, headache, confusion, dizziness, muscle cramps. Other than her taste being off she has no complaints. She usually takes Lasix x3/wk but not for the last few weeks therefore would expect her volume to be up with history of pulmonary edema however she feels she is currently dehydrated and leg swelling is currently down. No chest pain or shortness of breath. Review of Systems Review of Systems: All systems reviewed & are unremarkable except as noted in HPI & below Physical Exam Constitutional: WD/WN, vitals as above ENMT: external ear and nose normal, oropharynx normal Respiratory: normal respiratory effort, lungs clear to auscultation Cardiovascular: Rate/Rhythm: regular rate and + irregularly irregular Heart Sounds: no murmur Extremities: normal capillary refill and + pedal edema (trace b/l equal); no calf tenderness Gastrointestinal (Abdomen): normal bowel sounds, soft, nontender, no hep atosplenomegaly Skin: no rashes, warm and dry Neurologic: moves all extremities and awake; not confused Psychiatric: A+Ox3, euthymic affect Results & Data Results & Data Vital Signs (Past 12 Hours) Vital Signs Temp Pulse Pulse Resp BP Pulse Ox O2 Del Method 07/31/23 11:47 36.5 C 64 16 109/70 97 Nasal Cannula 07/31/23 07:58 36.3 C L 50 L 16 129/77 96 Nasal Cannula 07/31/23 07:36 50 L 07/31/23 07:29 Nasal Cannula 07/31/23 04:12 36.3 C L 57 L 18 129/82 92 Nasal Cannula 07/31/23 03:43 Nasal Cannula O2 Flow Rate 07/31/23 11:47 2 07/31/23 07:58 2 07/31/23 07:36 07/31/23 07:29 2 07/31/23 04:12 2 07/31/23 03:43 PG Care Time/CCT Total # of Minutes Spent Total Time Spent with Patient: Total time spent is greater than 50% in coordination of care (as documented) at patient's floor/unit and/or counseling patient: Coding Level of Care Code 39476 SUB INP/OBS CARE 3/50MIN Diagnoses Giant cell arteritis M31.6 Supratherapeutic INR R79.1 Hyponatremia E87.1 Afib I48.91 HTN (hypertension) I10 Hypertension type: unspecified CAD (coronary artery disease) I25.10 Acute UTI (urinary tract infection) N39.0 Chronic respiratory failure with hypoxia J96.11 (5) HTN (hypertension) Hypertension type: unspecified Qualified Code(s): I10 - Essential (primary) hypertension
[2023-07-31] MEDS: cefTRIAXone SODIUM 2,000 MG in DEXTROSE 5 % MINI-B 50 ML IV SCH (15:03)
[2023-07-31 15:36] LABS: Appearance Urine Clear (Clear); Bilirubin Urine Negative (Negative); Blood Urine Negative (Negative); Color Urine Yellow; Glucose Urine UA 1+ (Negative); Ketones Urine Negative (Negative); Leukocyte Esterase Urine Negative (Negative); Nitrite Urine Negative (Negative); Protein Urine Negative (Negative); Specific Gravity Urine 1.012 (1.000-1.030); Urobilinogen Urine Negative (Negative)
[2023-07-31] MEDS: SODIUM CHLORIDE 0.9% 1,000 ML IV SCH (16:56)
[2023-07-31] MEDS: SIMVASTATIN 20 MG TAB PO SCH (20:29)
[2023-07-31 21:33] LABS: BUN Creatinine Ratio 32.9 (10-20); Calcium 8.3 mg/dl (8.6-10.3); Creatinine Clr Calc Pharmacy 21.9 ml/min; Est GFR (African American) 29.8 ml/min; Est GFR (Non-African American) 25.7 ml/min; Potassium 4.7 mmol/L (3.5-5.1)
[2023-07-31] MEDS ORDERED: GLUCOSE 10 TAB/TUBE PO PRN (21:45)
[2023-07-31] MEDS ORDERED: GLUCAGON FOR INJ 1 MG VIAL SQ PRN (21:45)
[2023-07-31] MEDS ORDERED: DEXTROSE 50% 50 ML SYRINGE IV PRN (21:45)
[2023-07-31] MEDS ORDERED: CARBOHYDRATES FOR HYPOGLYCEMIA PO PRN (21:45)
[2023-07-31] MEDS ORDERED: GLUCOSE 40% GEL 15 GM TUBE PO PRN (21:45)
[2023-07-31] MEDS: INSULIN ASPART PER UNIT CHARGE SC SCH (23:16)
[2023-08-01] MEDS: SODIUM CHLORIDE 0.9% 1,000 ML IV SCH ×2 (01:49→11:42)
[2023-08-01] MEDS ORDERED: COUGH DROP (SUGAR FREE) LOZ 24 LOZ/1 BOX BUCCAL ONE (03:33)
[2023-08-01] MEDS ORDERED: COUGH DROP (SUGAR FREE) LOZ 24 LOZ/1 BOX BUCCAL STA (03:34)
[2023-08-01 07:17] LABS: Hematocrit (blood only) 39.9 % (37.0-47.0); Hemoglobin 13.5 g/dl (12.0-16.0); Mean Corpuscular Hgb Conc 33.8 g/dL (32.0-36.0); Mean Corpuscular Volume 94.5 fL (80.0-100.0); Mean Platelet Volume 9.8 fL (9.4-12.4); Platelet Count 310 K/uL (130-400); RDW Coefficient of Variation 12.2 % (11.5-14.5); RDW Standard Deviation 42.9 fL (36.4-46.3); Red Blood Count 4.22 M/uL (4.20-5.40); White Blood Count 15.71 K/ul (4.8-10.8)
[2023-08-01 07:35] LABS: BUN Creatinine Ratio 36.3 (10-20); Calcium 8.3 mg/dl (8.6-10.3); Creatinine Clr Calc Pharmacy 26.1 ml/min; Est GFR (African American) 36.6 ml/min; Est GFR (Non-African American) 31.6 ml/min; Potassium 4.9 mmol/L (3.5-5.1)
[2023-08-01 07:38] LABS: Basophils # (auto) 0.04 K/uL (0.00-0.20); Basophils % (auto) 0.3 %; Eosinophils # (auto) 0.06 K/uL (0.00-0.50); Eosinophils % (auto) 0.4 %; Immature Granulocytes # (auto) 0.35 K/uL (0.01-0.20); Immature Granulocytes % (auto) 2.2 %; Lymphocytes # (auto) 0.49 K/uL (1.20-3.40); Lymphocytes % (auto) 3.1 %; Monocytes # (auto) 0.31 K/uL (0.11-0.59); Neutrophils # (auto) 14.46 K/uL (1.40-6.50)
[2023-08-01 07:42] LABS: Prothrombin Time 39.8 Seconds (9.0-12.0)
[2023-08-01] MEDS: PANTOprazole 40 MG TAB PO SCH (07:59)
[2023-08-01] MEDS: METOPROLOL TARTRATE 25 MG TAB PO SCH ×2 (07:59→19:53)
[2023-08-01] MEDS: allopurinoL 100 MG TAB PO SCH (07:59)
[2023-08-01] MEDS: FLUTICASONE/VILANTEROL 200/25MCG 14 PUFFS/INHALER INH SCH (08:00)
[2023-08-01] MEDS ORDERED: PHYTONADIONE 5 MG TAB PO STA (08:04)
[2023-08-01] MEDS: INSULIN ASPART PER UNIT CHARGE SC SCH ×4 (08:42→20:40)
[2023-08-01] MEDS: methylPREDNISolone 60 MG in SYRINGE 0 ML IV SCH (08:55)
--- NOTE | 2023-08-01 13:18 | Hospitalist Progress Note ---
Date of Service August 01, 2023 Assessment & Plan (1) Giant cell arteritis: Plan: Patient initially presented with general feeling of chills, unwellness, and diffuse muscle aches. Initially denied vision change but notes that she did have some slight double vision which has not changed in the last 2 weeks and has poor acuity at baseline, but no field cuts. 1 week of tender swollen inflamed temporal artery see photo in admitting H&P Age > 50, elevated ESR and CRP, with elevated leukocytosis and Pro-Wolfgang (this can be elevated and vasculitis) Temporal artery biopsy currently contraindicated due to supratherapeutic INR greater than 10. Patient did receive vitamin K, allow INR to downtrend. Once INR is less than 2 can bridge to heparin temporarily which can then be held periprocedurally to allow for temporal artery biopsy. Consult surgery once INR is appropriate Discussed with desiree/Dr. Piedra on admission. Agree w/ treatment and high dose steroids. Even with steroids biopsy with good yield out up to 2 to 4 weeks on steroids; agrees with starting treatment empirically with high-dose due to concern for visual change and getting biopsy when able. Temporal CD US is not available Methylprednisolone 1 g x 3 days, then 60 mg daily Steroids as noted, hep B/hep C/QuantiFERON ordered for rheumatology in case Actemra is pursued. Appreciate recommendation Will need rheumatology follow-up upon discharge. Completed 1g solumedrol x3 days --> now on 60mg daily. Improved clinical. pending INR return to normal and biopsy. (2) Supratherapeutic INR: Plan: - INR > 10 on admit - No bleeding on admit - Vitamin K given 5mg -Follow clinically for signs of bleeding When INR has down trended < 2 --> start heparin gtt and hold around temp biopsy as noted INR currently 3.7 --> 4 08/01. Additional 2.5mg vk given. (3) Hyponatremia: Plan: 125, asymptomatic 07/31 Urine studies suggest GI loss, tea-toast diet, reduced PO intake as she feels her volume is down from usual Urine Na/osm repeated as she is neither significant hyper or hypovolemic on exam Fluid restrict 1L As she feels her volume is down which fits with Cr also rising will start NSS and watch sodium closely. Improved 08/01, not yet normalized. supplemental continued. (4) Afib: Plan: EKG A-fib rate controlled without acute ischemic change Troponin mildly elevated, down trended suspect stress Patient clinically slightly dry, 500 cc bolus given diuretics/additional IV fluids both deferred Continue metoprolol Warfarin/anticoagulation as noted (5) HTN (hypertension): Plan: Hold diltiazem, hold parameters mean this and metoprolol was being skipped intermittently anyway Continue metoprolol Holding furosemide (6) CAD (coronary artery disease): Plan: Troponin as noted, suspected demand no acute ischemic changes No chest pain with exertion, patient denies recent chest pain with exertion or at rest (7) Acute UTI (urinary tract infection): Plan: Urine culture with E. coli resistant to ampicillin/Unasyn Treated in setting of non-specific symptoms and high dose steroids - Continue ceftriaxone. Course complete 08/03 (8) Chronic respiratory failure with hypoxia: Plan: On baseline 2LPM O2 No acute finding on CXR Plan DVT PPx: INR supratherapeutic Diet: HH, NPO when bx expected Dispo: M/T Code: Full Code Admission and Anticipated Discharge Date Admission Date: July 29, 2023 Subjective Doing well at bedside. Bm last night. No fevers, chills, sweat No abd pain, -nvd Thigh pain grealty improved near resolved Energy improving worried about INR, took Vk this morning. No other questions or concerns Physical Exam Physical Exam: General: A&Ox3. NAD. Cooperative. HEENT: Atraumatic, normocephalic. Temporal erythma near resolved. Vision without change, grossly intact acuity bilat without field cuts Pulm: CTAB A&P. -wheezes, -rales, -rhonchi. Symmetrical chest rise. No increased work of breathing. No respiratory distress. Cardiac: RRR, -mrg. Radial pulses intact and symmetrical. Abdominal: Nontender, nondistended, soft. BS present. Results & Data Results & Data Vital Signs (Past 12 Hours) Vital Signs Temp Pulse Pulse Resp BP Pulse Ox O2 Del Method 08/01/23 11:55 36.5 C 73 20 118/72 96 Nasal Cannula 08/01/23 07:53 36.4 C L 71 20 131/85 96 Nasal Cannula 08/01/23 07:49 65 08/01/23 07:19 Nasal Cannula 08/01/23 02:53 36.7 C 83 16 117/79 96 Nasal Cannula O2 Flow Rate 08/01/23 11:55 3 08/01/23 07:53 2 08/01/23 07:49 08/01/23 07:19 2 08/01/23 02:53 2 PG Care Time/CCT Total # of Minutes Spent Total Time Spent with Patient: Total time spent is greater than 50% in coordination of care (as documented) at patient's floor/unit and/or counseling patient: Coding Level of Care Code 68176 SUB INP/OBS CARE 3/50MIN Diagnoses Giant cell arteritis M31.6 Supratherapeutic INR R79.1 Hyponatremia E87.1 Afib I48.91 HTN (hypertension) I10 Hypertension type: unspecified CAD (coronary artery disease) I25.10 Acute UTI (urinary tract infection) N39.0 Chronic respiratory failure with hypoxia J96.11 (5) HTN (hypertension) Hypertension type: unspecified Qualified Code(s): I10 - Essential (primary) hypertension
[2023-08-01] MEDS: cefTRIAXone SODIUM 2,000 MG in DEXTROSE 5 % MINI-B 50 ML IV SCH (14:31)
[2023-08-02] MEDS: METOPROLOL TARTRATE 25 MG TAB PO SCH ×2 (07:48→21:04)
[2023-08-02] MEDS: methylPREDNISolone 60 MG in SYRINGE 0 ML IV SCH (07:49)
[2023-08-02] MEDS: allopurinoL 100 MG TAB PO SCH (07:49)
[2023-08-02] MEDS: FLUTICASONE/VILANTEROL 200/25MCG 14 PUFFS/INHALER INH SCH (07:50)
[2023-08-02] MEDS: PANTOprazole 40 MG TAB PO SCH (07:50)
[2023-08-02 08:07] LABS: Basophils # (auto) 0.07 K/uL (0.00-0.20); Basophils % (auto) 0.4 %; Hematocrit (blood only) 44.8 % (37.0-47.0); Hemoglobin 14.9 g/dl (12.0-16.0); Immature Granulocytes % (auto) 4.3 %; Lymphocytes # (auto) 0.64 K/uL (1.20-3.40); Mean Corpuscular Hemoglobin 31.8 pg (25.0-34.0); Mean Corpuscular Hgb Conc 33.3 g/dL (32.0-36.0); Mean Corpuscular Volume 95.5 fL (80.0-100.0); Mean Platelet Volume 9.3 fL (9.4-12.4); Monocytes # (auto) 0.56 K/uL (0.11-0.59); Monocytes % (auto) 3.5 %; Neutrophils # (auto) 14.21 K/uL (1.40-6.50); Neutrophils % (auto) 87.8 %; Platelet Count 349 K/uL (130-400); RDW Coefficient of Variation 12.5 % (11.5-14.5); RDW Standard Deviation 43.9 fL (36.4-46.3); Red Blood Count 4.69 M/uL (4.20-5.40); White Blood Count 16.18 K/ul (4.8-10.8)
[2023-08-02 08:20] LABS: BUN Creatinine Ratio 40.7 (10-20); Calcium 8.7 mg/dl (8.6-10.3); Creatinine Clr Calc Pharmacy 33.3 ml/min; Est GFR (African American) 47.4 ml/min; Est GFR (Non-African American) 40.9 ml/min; Potassium 4.4 mmol/L (3.5-5.1)
[2023-08-02 08:35] LABS: INR 1.8 (0.9-1.1); Prothrombin Time 19.2 Seconds (9.0-12.0)
[2023-08-02] MEDS ORDERED: Heparin IV Adult Wt-Based Low-Dose *NO* INITIAL Bolus Protocol IV SCH (08:42)
--- NOTE | 2023-08-02 08:48 | Hospitalist Progress Note ---
Date of Service August 02, 2023 Assessment & Plan (1) Giant cell arteritis: Plan: Patient initially presented with general feeling of chills, unwellness, and diffuse muscle aches. Initially denied vision change but notes that she did have some slight double vision which has not changed in the last 2 weeks and has poor acuity at baseline, but no field cuts. 1 week of tender swollen inflamed temporal artery see photo in admitting H&P Age > 50, elevated ESR and CRP, with elevated leukocytosis and Pro-Wolfgang (this can be elevated and vasculitis) Temporal artery biopsy currently contraindicated due to supratherapeutic INR greater than 10. Patient did receive vitamin K, allow INR to downtrend. Once INR is less than 2 can bridge to heparin temporarily which can then be held periprocedurally to allow for temporal artery biopsy. Consult surgery once INR is appropriate Discussed with desiree/Dr. Piedra on admission. Agree w/ treatment and high dose steroids. Even with steroids biopsy with good yield out up to 2 to 4 weeks on steroids; agrees with starting treatment empirically with high-dose due to concern for visual change and getting biopsy when able. Temporal CD US is not available Methylprednisolone 1 g x 3 days, then 60 mg daily Steroids as noted, hep B/hep C/QuantiFERON ordered for rheumatology in case Actemra is pursued. Appreciate recommendation Will need rheumatology follow-up upon discharge. Completed 1g solumedrol x3 days --> now on 60mg daily. Improved clinically. Taper as follows: Prednisone 60 mg daily for 1 week, decrease by 10 mg weekly down to 20 mg, then decrease by 2.5 mg/week until 10 mg after which decrease by 1 mg/week -Surgery consulted for temporal artery biopsy, bilateral to improve sensitivity, anticipated to be complete by 08/03 then can resume warfarin with short bridge if needed and d/c Patient has been hyperglycemic while on steroids,Previous A1C 5.8%. No home antiglycemics. 10 units of long-acting insulin added to sliding scale. (2) Supratherapeutic INR: Plan: - INR > 10 on admit - No bleeding on admit - Vitamin K given 5mg -Follow clinically for signs of bleeding -In total patient received vitamin K 5 x 1, and then subsequently 2.5 x 1 for improved but subsequently uptrending INR. Has downtrended to 1.8. Patient bridged to warfarin gtt. Surgery consulted for biopsy which is pending (3) Hyponatremia: Plan: 125, asymptomatic 07/31 1235, near normalized 08/02 Urine studies suggest GI loss, tea-toast diet, reduced PO intake as she feels her volume is down from usual Urine Na/osm repeated as she is neither significant hyper or hypovolemic on exam (4) Afib: Plan: EKG A-fib rate controlled without acute ischemic change Troponin mildly elevated, down trended suspect stress Continue metoprolol Warfarin/anticoagulation as noted (5) HTN (hypertension): Plan: Hold diltiazem, hold parameters mean this and metoprolol was being skipped intermittently anyway Continue metoprolol Holding furosemide (6) CAD (coronary artery disease): Plan: Troponin as noted, suspected demand no acute ischemic changes No chest pain with exertion, patient denies recent chest pain with exertion or at rest (7) Acute UTI (urinary tract infection): Plan: Urine culture with E. coli resistant to ampicillin/Unasyn Treated in setting of non-specific symptoms and high dose steroids - Continue ceftriaxone. Course complete 08/03 Patient does have a mild leukocytosis and with a immature granulocyte fraction on 08/02. Remains afebrile without infectious symptoms and is covered with Rocephin (8) Chronic respiratory failure with hypoxia: Plan: On baseline 2LPM O2 No acute finding on CXR Plan DVT PPx: Anticoagulated Diet: HH, NPO 0000 Dispo: M/T Code: Full Code Admission and Anticipated Discharge Date Admission Date: July 29, 2023 Subjective Low seen at the bedside. Pleasant, no acute concerns. She feels greatly improved from prior. No diplopia today. No muscle soreness today. Is awaiting biopsy with surgery, otherwise feeling well with no acute concerns Physical Exam Physical Exam: General: A&Ox3. NAD. Cooperative. HEENT: Atraumatic, normocephalic. Pulm: CTAB A&P. -wheezes, -rales, -rhonchi. Symmetrical chest rise. No increased work of breathing. No respiratory distress. Cardiac: RRR, -mrg. Radial pulses intact and symmetrical. Abdominal: Nontender, nondistended, soft. BS present. Results & Data Results & Data Vital Signs (Past 12 Hours) Vital Signs Temp Pulse Pulse Resp BP Pulse Ox O2 Del Method 08/02/23 07:23 Nasal Cannula 08/02/23 06:57 59 L 08/02/23 02:52 36.3 C L 86 14 155/97 H 98 Nasal Cannula 08/02/23 00:29 16 143/87 H 94 Nasal Cannula 08/01/23 22:05 78 O2 Flow Rate 08/02/23 07:23 2 08/02/23 06:57 08/02/23 02:52 2 08/02/23 00:29 2 08/01/23 22:05 PG Care Time/CCT Total # of Minutes Spent Total Time Spent with Patient: Total time spent is greater than 50% in coordination of care (as documented) at patient's floor/unit and/or counseling patient: Coding Level of Care Code 55658 SUB INP/OBS CARE MIN Diagnoses Giant cell arteritis M31.6 Supratherapeutic INR R79.1 Hyponatremia E87.1 Afib I48.91 HTN (hypertension) I10 Hypertension type: unspecified CAD (coronary artery disease) I25.10 Acute UTI (urinary tract infection) N39.0 Chronic respiratory failure with hypoxia J96.11 (5) HTN (hypertension) Hypertension type: unspecified Qualified Code(s): I10 - Essential (primary) hypertension
[2023-08-02] MEDS: INSULIN ASPART PER UNIT CHARGE SC SCH ×4 (09:02→21:04)
[2023-08-02 09:48] LABS: Partial Thromboplastin Ratio 1.2; Partial Thromboplastin Time 34 Seconds (21-31)
[2023-08-02] MEDS: LANTUS PER UNIT CHARGE SQ SCH (10:08)
[2023-08-02] MEDS: HEPARIN SODIUM/DEXTROSE 25,000 UNITS/500 ML BAG IV SCH ×2 (10:26→10:33)
[2023-08-02 12:48] LABS: HBSAG NON-REACTIVE (NON-REACTIVE); Hepatitis A Antibody IgM NON-REACTIVE (NON-REACTIVE); Hepatitis B Core Antibody IgM NON-REACTIVE (NON-REACTIVE)
--- NOTE | 2023-08-02 13:18 | Surgery Consultation ---
Date of Consultation August 02, 2023 Assessment & Plan (1) Giant cell arteritis: Assessment: Patient is a 87 years old female prepped recent past medical history chronic respiratory failure, CAD, hypertension, A-fib, right heart failure, pulmonary hypertension, on Coumadin. Patient was admitted to hospital for possible giant cell arteritis. Patient said he had a couple week history we will itching on the bilateral temporal area and sweats at night, double vision. Patient denies fever or chills. No chest pain. I was asked to do biopsy of bilateral temporal artery or to rule out giant cell arteritis. Plan: I recommend to do biopsy of provide her temporal arteries under the local and the sedation. I did talk to patient about the benefits the risk and alternate of the procedure. He indicated the risks may include but not limited such as bleeding, infection, worse vision. He understood. She will agree to proceed to the surgery. She signed informed consent. I answered all questions History of Present Illness Reason for Consultation: biopsy bilateral temporal artery Requesting Physician: Elian Stephens MD Attending Physician: Elian Stephens MD History of Present Illness CC: temporal area itching and sweats HPI: Patient is a 87 years old female prepped recent past medical history chronic respiratory failure, CAD, hypertension, A-fib, right heart failure, pulmonary hypertension, on Coumadin. Patient was admitted to hospital for possible giant cell arteritis. Patient said he had a couple week history we will itching on the bilateral temporal area and sweats at night, double vision. Patient denies fever or chills. No chest pain. I was asked to do biopsy of bilateral temporal artery or to rule out giant cell arteritis. Allergies Allergy/AdvReac Type Severity Reaction Status Date / Time Sulfa (Sulfonamide Allergy Intermediate RASH/GI Verified 01/04/23 12:33 Antibiotics) UPSET mercury (elemental) Allergy Mild RASH Verified 01/04/23 12:33 Penicillins Allergy Mild RASH Verified 01/04/23 12:33 hydromorphone AdvReac Intermediate ACTED Verified 01/04/23 12:33 STRANGE NSAIDS (Non-Steroidal AdvReac Intermediate INTERNAL Verified 01/04/23 12:33 Anti-Inflamma BLEEDING Home Medications Medication Instructions Recorded Confirmed Type albuterol sulfate 90 mcg/actuation 2 puff inhalation QID PRN 03/20/21 01/04/23 History aerosol inhaler Shortness Of Breath Or Wheezing allopurinol 100 mg tablet 100 mg PO QAM 03/20/21 07/29/23 History cholecalciferol (vitamin D3) 25 25 mcg PO QAM 03/20/21 01/04/23 History mcg (1,000 unit) capsule (Vitamin D3) diltiazem HCl 30 mg tablet 30 mg PO QID 03/20/21 07/29/23 History (Cardizem) metoprolol tartrate 25 mg tablet 25 mg PO BID 03/20/21 07/29/23 History simvastatin 20 mg tablet 20 mg PO Q OTHER DAY 03/20/21 07/29/23 History warfarin 2 mg tablet See Rx Instructions .Route .COMPLEX 03/20/21 01/04/23 History meclizine 12.5 mg tablet 12.5 mg PO Q6H PRN vertigo #10 tabs 03/23/21 07/29/23 Rx Vitamin B12 Tab 2,500 mcg PO Q OTHER DAY 01/04/23 01/04/23 History fluticasone furoate 200 1 ea inhalation DAILY #60 ea 01/08/23 07/29/23 Rx mcg-vilanterol 25 mcg/dose inhalation powder (Breo Ellipta) furosemide 20 mg tablet (Lasix) 20 mg PO 3XWK #30 tabs 01/08/23 07/29/23 Rx fluticasone propionate 50 2 spray intranasal DAILY 07/29/23 07/29/23 History mcg/actuation nasal spray,suspension Patient History Medical History Chronic diastolic heart failure COPD (chronic obstructive pulmonary disease) rarely needs inhaler Gout CAD (coronary artery disease) HTN (hypertension) Afib on warfarin daily -follows w/ Dr Lai last visit 06/2022 Surgical History Hx of cardiac catheterization about 15 yrs ago, no stents- [facility] History of esophagogastroduodenoscopy (EGD) Hx of colonoscopy Hx of cholecystectomy Hx of hysterectomy Family History Other No family history of adverse response to anesthesia Social History Smoking Status: Never smoker Second Hand Exposure: No; Do You Dip or Chew Tobacco: No; Hx Alcohol Use: No Hx Substance Use: No Preferred Language: Sammarinese Communication Ability: Effective Communication Tools: Other House Piping Inspector Required: No Beliefs That Will Affect Care: None marital status: / Current Living Situation: Alone Other Information That Helps Us Care for You: No Feels Safe at Home: Yes Safety Concerns: Feels Safe At This Time Assistive Devices: Cane, Glasses and Oxygen - Continuous Review of Systems Constitutional: as per Subjective / HPI Eyes: Double vision Respiratory: Respiratory failure Cardiovascular: Additional Comments: CAD, HTN, A-fib, right heart failure. Gastrointestinal: as per Subjective / HPI Neurologic: as per Subjective / HPI Psychiatric: as per Subjective / HPI Endocrine: as per Subjective / HPI Hematologic / Lymphatic: as per Subjective / HPI on coumadin Physical Exam Constitutional: WD/WN, vitals as above Eyes: PERRL, conjunctivae normal, anicteric sclerae Neck: trachea midline, no thyromegaly Respiratory: normal respiratory effort, lungs clear to auscultation Cardiovascular: Rate/Rhythm: + irregularly irregular Gastrointestinal (Abdomen): normal bowel sounds, soft, nontender, no hepatosplenomegaly Musculoskeletal: no cyanosis or clubbing, extremities motor strength 5/5 Skin: mild tenderness at bilateral temporal area. Neurologic: patellar DTR's 2+ bilat, sensation intact Psychiatric: A+Ox3, euthymic affect Results & Data Vital Signs (Past 12 Hours) Vital Signs Temp Pulse Pulse Resp BP Pulse Ox O2 Del Method 08/02/23 12:10 36.2 C L 68 17 148/95 H 96 Nasal Cannula 08/02/23 09:10 36.4 C L 69 17 174/88 H 95 Nasal Cannula 08/02/23 07:23 Nasal Cannula 08/02/23 06:57 59 L 08/02/23 02:52 36.3 C L 86 14 155/97 H 98 Nasal Cannula O2 Flow Rate 08/02/23 12:10 3 08/02/23 09:10 3 08/02/23 07:23 2 08/02/23 06:57 08/02/23 02:52 2 Laboratory Results Lab Results 07/29/23 07/29/23 07/29/23 Range/Units 09:50 10:01 11:10 WBC 26.53 H (4.8-10.8) K/ul RBC 4.99 (4.20-5.40) M/uL Hgb 16.0 (12.0-16.0) g/dl Hct 47.5 H (37.0-47.0) % MCV 95.2 (80.0-100.0) fL MCH 32.1 (25.0-34.0) pg MCHC 33.7 (32.0-36.0) g/dL RDW Std Deviation 43.0 (36.4-46.3) fL RDW Coeff of Andrews 12.1 (11.5-14.5) % Plt Count 308 (130-400) K/uL MPV 9.5 (9.4-12.4) fL Immature Gran % (Auto) 3.5 % Neut % (Auto) 84.6 % Lymph % (Auto) 3.1 % Murray % (Auto) 7.5 % Eos % (Auto) 0.6 % Baso % (Auto) 0.7 % Neut # (Auto) 22.45 H (1.40-6.50) K/uL Lymph # (Auto) 0.82 L (1.20-3.40) K/uL Murray # (Auto) 1.98 H (0.11-0.59) K/uL Eos # (Auto) 0.16 (0.00-0.50) K/uL Baso # (Auto) 0.19 (0.00-0.20) K/uL Immature Gran # (Auto) 0.93 H (0.01-0.20) K/uL RBC Morphology Unremarkable Polychromasia Tear Drop Cells ESR 83 H (0-30) mm/hr PT > 90.0 H (9.0-12.0) Seconds INR > 9.5 H* (0.9-1.1) APTT 79 H (21-31) Seconds PTT Ratio 2.8 Sodium 131 L (136-145) mmol/L Potassium 4.3 (3.5-5.1) mmol/L Chloride 96 L (98-107) mmol/L Carbon Dioxide 28 (21-32) mmol/L Anion Gap 7 (3-11) BUN 35 H (6-23) mg/dl Creatinine 1.09 (0.6-1.2) mg/dl Est Cr Clr Drug Dosing 34.8 ml/min Est GFR ( Amer) 52.1 ml/min Est GFR (Non-Af Amer) 45.0 ml/min BUN/Creatinine Ratio 32.1 H (10-20) Glucose 118 H (70-99(Fasting)) mg/dl POC Glucose (70-99) mg/dl Osmolality (280-300) mOsm/kg Lactate 1.8 (0.4-2.0) mmol/L Calcium 9.0 (8.6-10.3) mg/dl Magnesium 1.7 (1.7-2.4) mg/dl Total Bilirubin 1.0 (0.2-1.0) mg/dl Direct Bilirubin 0.4 H (0-0.2) mg/dl AST 23 (13-39) U/L ALT 22 (7-52) U/L Alkaline Phosphatase 158 H (34-104) U/L Total Creatine Kinase (26-192) U/L Troponin I High Sens 71.1 H* (0-14) pg/ml C-Reactive Protein (0-0.5) mg/dl Total Protein 6.6 (6.0-8.3) gm/dl Albumin 2.7 L (3.4-5.0) gm/dl Procalcitonin 0.66 H (0-0.5) ng/ml Urine Color Dark Yellow Urine Appearance Clear (Clear) Urine pH 5.5 (4.5-7.5) Ur Specific [place] 1.022 (1.000-1.030) Urine Protein 1+ H (Negative) Urine Glucose (UA) Negative (Negative) Urine Ketones Trace H (Negative) Urine Blood 1+ H (Negative) Urine Nitrite Positive A (Negative) Urine Bilirubin Negative (Negative) Urine Urobilinogen Negative (Negative) Ur Leukocyte Esterase 1+ H (Negative) Urine WBC (Auto) 10-30 H (0-5) /hpf Urine RBC (Auto) 0-4 (0-4) /hpf U Hyaline Cast (Auto) 1-5 (0-5) /lpf U Epithel Cells (Auto) 0-5 (0-5) /lpf Urine Bacteria (Auto) 2+ H (Negative) Urine Osmolality (500-800) mOsm/kg Ur Random Sodium mmol/L Lyme Disease IgG Ab Negative (Negative) Lyme Disease IgM Ab Negative (Negative) SARS-CoV-2 (PCR) NEGATIVE (Negative) Hepatitis A IgM Ab (NON-REACTIVE) Hep Bs Antigen (NON-REACTIVE) Hep Bs Ag Confirmation Hep B Core IgM Ab (NON-REACTIVE) Hepatitis C Ab (EIA) (NON-REACTIVE) Influenza Type A (PCR) Negative (Neg) Influenza Type B (PCR) Negative (Neg) RSV (RT-PCR) Negative (Neg) 07/29/23 07/30/23 07/30/23 Range/Units 11:34 05:28 08:03 WBC 20.15 H (4.8-10.8) K/ul RBC 4.56 (4.20-5.40) M/uL Hgb 14.5 (12.0-16.0) g/dl Hct 42.8 (37.0-47.0) % MCV 93.9 (80.0-100.0) fL MCH 31.8 (25.0-34.0) pg MCHC 33.9 (32.0-36.0) g/dL RDW Std Deviation 42.2 (36.4-46.3) fL RDW Coeff of Andrews 12.1 (11.5-14.5) % Plt Count 305 (130-400) K/uL MPV 9.8 (9.4-12.4) fL Immature Gran % (Auto) 2.9 % Neut % (Auto) 91.6 % Lymph % (Auto) 3.2 % Murray % (Auto) 1.5 % Eos % (Auto) 0.4 % Baso % (Auto) 0.4 % Neut # (Auto) 18.45 H (1.40-6.50) K/uL Lymph # (Auto) 0.64 L (1.20-3.40) K/uL Murray # (Auto) 0.30 (0.11-0.59) K/uL Eos # (Auto) 0.08 (0.00-0.50) K/uL Baso # (Auto) 0.09 (0.00-0.20) K/uL Immature Gran # (Auto) 0.59 H (0.01-0.20) K/uL RBC Morphology Polychromasia Tear Drop Cells ESR (0-30) mm/hr PT 51.9 H (9.0-12.0) Seconds INR 5.3 H (0.9-1.1) APTT (21-31) Seconds PTT Ratio Sodium 128 L (136-145) mmol/L Potassium 4.6 (3.5-5.1) mmol/L Chloride 94 L (98-107) mmol/L Carbon Dioxide 25 (21-32) mmol/L Anion Gap 9 (3-11) BUN 38 H (6-23) mg/dl Creatinine 1.08 (0.6-1.2) mg/dl Est Cr Clr Drug Dosing 34.8 ml/min Est GFR ( Amer) 52.7 ml/min Est GFR (Non-Af Amer) 45.5 ml/min BUN/Creatinine Ratio 35.2 H (10-20) Glucose 157 H (70-99(Fasting)) mg/dl POC Glucose (70-99) mg/dl Osmolality 281 (280-300) mOsm/kg Lactate (0.4-2.0) mmol/L Calcium 8.7 (8.6-10.3) mg/dl Magnesium 2.0 (1.7-2.4) mg/dl Total Bilirubin (0.2-1.0) mg/dl Direct Bilirubin (0-0.2) mg/dl AST (13-39) U/L ALT (7-52) U/L Alkaline Phosphatase (34-104) U/L Total Creatine Kinase 12 L (26-192) U/L Troponin I High Sens 67.8 H* (0-14) pg/ml C-Reactive Protein 30.15 H (0-0.5) mg/dl Total Protein (6.0-8.3) gm/dl Albumin (3.4-5.0) gm/dl Procalcitonin (0-0.5) ng/ml Urine Color Urine Appearance (Clear) Urine pH (4.5-7.5) Ur Specific [place] (1.000-1.030) Urine Protein (Negative) Urine Glucose (UA) (Negative) Urine Ketones (Negative) Urine Blood (Negative) Urine Nitrite (Negative) Urine Bilirubin (Negative) Urine Urobilinogen (Negative) Ur Leukocyte Esterase (Negative) Urine WBC (Auto) (0-5) /hpf Urine RBC (Auto) (0-4) /hpf U Hyaline Cast (Auto) (0-5) /lpf U Epithel Cells (Auto) (0-5) /lpf Urine Bacteria (Auto) (Negative) Urine Osmolality (500-800) mOsm/kg Ur Random Sodium mmol/L Lyme Disease IgG Ab (Negative) Lyme Disease IgM Ab (Negative) SARS-CoV-2 (PCR) (Negative) Hepatitis A IgM Ab NON-REACTIVE (NON-REACTIVE) Hep Bs Antigen NON-REACTIVE (NON-REACTIVE) Hep Bs Ag Confirmation TNP Hep B Core IgM Ab NON-REACTIVE (NON-REACTIVE) Hepatitis C Ab (EIA) NON-REACTIVE (NON-REACTIVE) Influenza Type A (PCR) (Neg) Influenza Type B (PCR) (Neg) RSV (RT-PCR) (Neg) 07/30/23 07/31/23 07/31/23 Range/Units Unknown 07:06 15:15 WBC 22.81 H (4.8-10.8) K/ul RBC 4.29 (4.20-5.40) M/uL Hgb 13.8 (12.0-16.0) g/dl Hct 39.0 (37.0-47.0) % MCV 90.9 (80.0-100.0) fL MCH 32.2 (25.0-34.0) pg MCHC 35.4 (32.0-36.0) g/dL RDW Std Deviation 40.3 (36.4-46.3) fL RDW Coeff of Andrews 12.2 (11.5-14.5) % Plt Count 339 (130-400) K/uL MPV 9.9 (9.4-12.4) fL Immature Gran % (Auto) 2.2 % Neut % (Auto) 90.9 % Lymph % (Auto) 3.4 % Murray % (Auto) 3.3 % Eos % (Auto) 0.0 % Baso % (Auto) 0.2 % Neut # (Auto) 20.73 H (1.40-6.50) K/uL Lymph # (Auto) 0.78 L (1.20-3.40) K/uL [place] # (Auto) 0.75 H (0.11-0.59) K/uL Eos # (Auto) 0.00 (0.00-0.50) K/uL Baso # (Auto) 0.05 (0.00-0.20) K/uL Immature Gran # (Auto) 0.50 H (0.01-0.20) K/uL RBC Morphology Polychromasia 1+ Tear Drop Cells 1+ ESR (0-30) mm/hr PT 37.3 H (9.0-12.0) Seconds INR 3.7 H (0.9-1.1) APTT (21-31) Seconds PTT Ratio Sodium 125 L (136-145) mmol/L Potassium 5.1 (3.5-5.1) mmol/L Chloride 93 L (98-107) mmol/L Carbon Dioxide 24 (21-32) mmol/L Anion Gap 8 (3-11) BUN 58 H D (6-23) mg/dl Creatinine 1.89 H D (0.6-1.2) mg/dl Est Cr Clr Drug Dosing 20.1 ml/min Est GFR ( Amer) 26.8 ml/min Est GFR (Non-Af Amer) 23.1 ml/min BUN/Creatinine Ratio 30.7 H (10-20) Glucose 257 H (70-99(Fasting)) mg/dl POC Glucose (70-99) mg/dl Osmolality (280-300) mOsm/kg Lactate (0.4-2.0) mmol/L Calcium 8.7 (8.6-10.3) mg/dl Magnesium (1.7-2.4) mg/dl Total Bilirubin (0.2-1.0) mg/dl Direct Bilirubin (0-0.2) mg/dl AST (13-39) U/L ALT (7-52) U/L Alkaline Phosphatase (34-104) U/L Total Creatine Kinase (26-192) U/L Troponin I High Sens (0-14) pg/ml C-Reactive Protein (0-0.5) mg/dl Total Protein (6.0-8.3) gm/dl Albumin (3.4-5.0) gm/dl Procalcitonin (0-0.5) ng/ml Urine Color Yellow Urine Appearance Clear (Clear) Urine pH 5.0 (4.5-7.5) Ur Specific [place] 1.012 (1.000-1.030) Urine Protein Negative (Negative) Urine Glucose (UA) 1+ H (Negative) Urine Ketones Negative (Negative) Urine Blood Negative (Negative) Urine Nitrite Negative (Negative) Urine Bilirubin Negative (Negative) Urine Urobilinogen Negative (Negative) Ur Leukocyte Esterase Negative (Negative) Urine WBC (Auto) (0-5) /hpf Urine RBC (Auto) (0-4) /hpf U Hyaline Cast (Auto) (0-5) /lpf U Epithel Cells (Auto) (0-5) /lpf Urine Bacteria (Auto) (Negative) Urine Osmolality 426 L 339 L (500-800) mOsm/kg Ur Random Sodium 11 11 mmol/L Lyme Disease IgG Ab (Negative) Lyme Disease IgM Ab (Negative) SARS-CoV-2 (PCR) (Negative) Hepatitis A IgM Ab (NON-REACTIVE) Hep Bs Antigen (NON-REACTIVE) Hep Bs Ag Confirmation Hep B Core IgM Ab (NON-REACTIVE) Hepatitis C Ab (EIA) (NON-REACTIVE) Influenza Type A (PCR) (Neg) Influenza Type B (PCR) (Neg) RSV (RT-PCR) (Neg) 07/31/23 08/01/23 08/01/23 Range/Units 20:28 06:25 08:06 WBC 15.71 H (4.8-10.8) K/ul RBC 4.22 (4.20-5.40) M/uL Hgb 13.5 (12.0-16.0) g/dl Hct 39.9 (37.0-47.0) % MCV 94.5 (80.0-100.0) fL MCH 32.0 (25.0-34.0) pg MCHC 33.8 (32.0-36.0) g/dL RDW Std Deviation 42.9 (36.4-46.3) fL RDW Coeff of Andrews 12.2 (11.5-14.5) % Plt Count 310 (130-400) K/uL MPV 9.8 (9.4-12.4) fL Immature Gran % (Auto) 2.2 % Neut % (Auto) 92.0 % Lymph % (Auto) 3.1 % [place] % (Auto) 2.0 % Eos % (Auto) 0.4 % Baso % (Auto) 0.3 % Neut # (Auto) 14.46 H (1.40-6.50) K/uL Lymph # (Auto) 0.49 L (1.20-3.40) K/uL Murray # (Auto) 0.31 (0.11-0.59) K/uL Eos # (Auto) 0.06 (0.00-0.50) K/uL Baso # (Auto) 0.04 (0.00-0.20) K/uL Immature Gran # (Auto) 0.35 H (0.01-0.20) K/uL RBC Morphology Polychromasia Tear Drop Cells ESR (0-30) mm/hr PT 39.8 H (9.0-12.0) Seconds INR 4.0 H (0.9-1.1) APTT (21-31) Seconds PTT Ratio Sodium 126 L 131 L (136-145) mmol/L Potassium 4.7 4.9 (3.5-5.1) mmol/L Chloride 95 L 100 (98-107) mmol/L Carbon Dioxide 22 25 (21-32) mmol/L Anion Gap 9 6 (3-11) BUN 57 H 53 H (6-23) mg/dl Creatinine 1.73 H 1.46 H (0.6-1.2) mg/dl Est Cr Clr Drug Dosing 21.9 26.1 ml/min Est GFR ( Amer) 29.8 36.6 ml/min Est GFR (Non-Af Amer) 25.7 31.6 ml/min BUN/Creatinine Ratio 32.9 H 36.3 H (10-20) Glucose 322 H* 207 H (70-99(Fasting)) mg/dl POC Glucose 191 H (70-99) mg/dl Osmolality (280-300) mOsm/kg Lactate (0.4-2.0) mmol/L Calcium 8.3 L 8.3 L (8.6-10.3) mg/dl Magnesium (1.7-2.4) mg/dl Total Bilirubin (0.2-1.0) mg/dl Direct Bilirubin (0-0.2) mg/dl AST (13-39) U/L ALT (7-52) U/L Alkaline Phosphatase (34-104) U/L Total Creatine Kinase (26-192) U/L Troponin I High Sens (0-14) pg/ml C-Reactive Protein (0-0.5) mg/dl Total Protein (6.0-8.3) gm/dl Albumin (3.4-5.0) gm/dl Procalcitonin (0-0.5) ng/ml Urine Color Urine Appearance (Clear) Urine pH (4.5-7.5) Ur Specific [place] (1.000-1.030) Urine Protein (Negative) Urine Glucose (UA) (Negative) Urine Ketones (Negative) Urine Blood (Negative) Urine Nitrite (Negative) Urine Bilirubin (Negative) Urine Urobilinogen (Negative) Ur Leukocyte Esterase (Negative) Urine WBC (Auto) (0-5) /hpf Urine RBC (Auto) (0-4) /hpf U Hyaline Cast (Auto) (0-5) /lpf U Epithel Cells (Auto) (0-5) /lpf Urine Bacteria (Auto) (Negative) Urine Osmolality (500-800) mOsm/kg Ur Random Sodium mmol/L Lyme Disease IgG Ab (Negative) Lyme Disease IgM Ab (Negative) SARS-CoV-2 (PCR) (Negative) Hepatitis A IgM Ab (NON-REACTIVE) Hep Bs Antigen (NON-REACTIVE) Hep Bs Ag Confirmation Hep B Core IgM Ab (NON-REACTIVE) Hepatitis C Ab (EIA) (NON-REACTIVE) Influenza Type A (PCR) (Neg) Influenza Type B (PCR) (Neg) RSV (RT-PCR) (Neg) 08/01/23 08/01/23 08/01/23 Range/Units 11:59 17:06 20:32 WBC (4.8-10.8) K/ul RBC (4.20-5.40) M/uL Hgb (12.0-16.0) g/dl Hct (37.0-47.0) % MCV (80.0-100.0) fL MCH (25.0-34.0) pg MCHC (32.0-36.0) g/dL RDW Std Deviation (36.4-46.3) fL RDW Coeff of Andrews (11.5-14.5) % Plt Count (130-400) K/uL MPV (9.4-12.4) fL Immature Gran % (Auto) % Neut % (Auto) % Lymph % (Auto) % [place] % (Auto) % Eos % (Auto) % Baso % (Auto) % Neut # (Auto) (1.40-6.50) K/uL Lymph # (Auto) (1.20-3.40) K/uL [place] # (Auto) (0.11-0.59) K/uL Eos # (Auto) (0.00-0.50) K/uL Baso # (Auto) (0.00-0.20) K/uL Immature Gran # (Auto) (0.01-0.20) K/uL RBC Morphology Polychromasia Tear Drop Cells ESR (0-30) mm/hr PT (9.0-12.0) Seconds INR (0.9-1.1) APTT (21-31) Seconds PTT Ratio Sodium (136-145) mmol/L Potassium (3.5-5.1) mmol/L Chloride (98-107) mmol/L Carbon Dioxide (21-32) mmol/L Anion Gap (3-11) BUN (6-23) mg/dl Creatinine (0.6-1.2) mg/dl Est Cr Clr Drug Dosing ml/min Est GFR ( Amer) ml/min Est GFR (Non-Af Amer) ml/min BUN/Creatinine Ratio (10-20) Glucose (70-99(Fasting)) mg/dl POC Glucose 202 H 226 H 158 H (70-99) mg/dl Osmolality (280-300) mOsm/kg Lactate (0.4-2.0) mmol/L Calcium (8.6-10.3) mg/dl Magnesium (1.7-2.4) mg/dl Total Bilirubin (0.2-1.0) mg/dl Direct Bilirubin (0-0.2) mg/dl AST (13-39) U/L ALT (7-52) U/L Alkaline Phosphatase (34-104) U/L Total Creatine Kinase (26-192) U/L Troponin I High Sens (0-14) pg/ml C-Reactive Protein (0-0.5) mg/dl Total Protein (6.0-8.3) gm/dl Albumin (3.4-5.0) gm/dl Procalcitonin (0-0.5) ng/ml Urine Color Urine Appearance (Clear) Urine pH (4.5-7.5) Ur Specific [place] (1.000-1.030) Urine Protein (Negative) Urine Glucose (UA) (Negative) Urine Ketones (Negative) Urine Blood (Negative) Urine Nitrite (Negative) Urine Bilirubin (Negative) Urine Urobilinogen (Negative) Ur Leukocyte Esterase (Negative) Urine WBC (Auto) (0-5) /hpf Urine RBC (Auto) (0-4) /hpf U Hyaline Cast (Auto) (0-5) /lpf U Epithel Cells (Auto) (0-5) /lpf Urine Bacteria (Auto) (Negative) Urine Osmolality (500-800) mOsm/kg Ur Random Sodium mmol/L Lyme Disease IgG Ab (Negative) Lyme Disease IgM Ab (Negative) SARS-CoV-2 (PCR) (Negative) Hepatitis A IgM Ab (NON-REACTIVE) Hep Bs Antigen (NON-REACTIVE) Hep Bs Ag Confirmation Hep B Core IgM Ab (NON-REACTIVE) Hepatitis C Ab (EIA) (NON-REACTIVE) Influenza Type A (PCR) (Neg) Influenza Type B (PCR) (Neg) RSV (RT-PCR) (Neg) 08/02/23 08/02/23 08/02/23 Range/Units 07:35 08:36 12:17 WBC 16.18 H (4.8-10.8) K/ul RBC 4.69 (4.20-5.40) M/uL Hgb 14.9 (12.0-16.0) g/dl Hct 44.8 (37.0-47.0) % MCV 95.5 (80.0-100.0) fL MCH 31.8 (25.0-34.0) pg MCHC 33.3 (32.0-36.0) g/dL RDW Std Deviation 43.9 (36.4-46.3) fL RDW Coeff of Andrews 12.5 (11.5-14.5) % Plt Count 349 (130-400) K/uL MPV 9.3 L (9.4-12.4) fL Immature Gran % (Auto) 4.3 % Neut % (Auto) 87.8 % Lymph % (Auto) 4.0 % [place] % (Auto) 3.5 % Eos % (Auto) 0.0 % Baso % (Auto) 0.4 % Neut # (Auto) 14.21 H (1.40-6.50) K/uL Lymph # (Auto) 0.64 L (1.20-3.40) K/uL [place] # (Auto) 0.56 (0.11-0.59) K/uL Eos # (Auto) 0.00 (0.00-0.50) K/uL Baso # (Auto) 0.07 (0.00-0.20) K/uL Immature Gran # (Auto) 0.70 H (0.01-0.20) K/uL RBC Morphology Polychromasia Tear Drop Cells ESR (0-30) mm/hr PT 19.2 H (9.0-12.0) Seconds INR 1.8 H (0.9-1.1) APTT 34 H (21-31) Seconds PTT Ratio 1.2 Sodium 134 L (136-145) mmol/L Potassium 4.4 (3.5-5.1) mmol/L Chloride 103 (98-107) mmol/L Carbon Dioxide 25 (21-32) mmol/L Anion Gap 6 (3-11) BUN 48 H (6-23) mg/dl Creatinine 1.18 (0.6-1.2) mg/dl Est Cr Clr Drug Dosing 33.3 ml/min Est GFR ( Amer) 47.4 ml/min Est GFR (Non-Af Amer) 40.9 ml/min BUN/Creatinine Ratio 40.7 H (10-20) Glucose 234 H (70-99(Fasting)) mg/dl POC Glucose 192 H 234 H (70-99) mg/dl Osmolality (280-300) mOsm/kg Lactate (0.4-2.0) mmol/L Calcium 8.7 (8.6-10.3) mg/dl Magnesium (1.7-2.4) mg/dl Total Bilirubin (0.2-1.0) mg/dl Direct Bilirubin (0-0.2) mg/dl AST (13-39) U/L ALT (7-52) U/L Alkaline Phosphatase (34-104) U/L Total Creatine Kinase (26-192) U/L Troponin I High Sens (0-14) pg/ml C-Reactive Protein (0-0.5) mg/dl Total Protein (6.0-8.3) gm/dl Albumin (3.4-5.0) gm/dl Procalcitonin (0-0.5) ng/ml Urine Color Urine Appearance (Clear) Urine pH (4.5-7.5) Ur Specific [place] (1.000-1.030) Urine Protein (Negative) Urine Glucose (UA) (Negative) Urine Ketones (Negative) Urine Blood (Negative) Urine Nitrite (Negative) Urine Bilirubin (Negative) Urine Urobilinogen (Negative) Ur Leukocyte Esterase (Negative) Urine WBC (Auto) (0-5) /hpf Urine RBC (Auto) (0-4) /hpf U Hyaline Cast (Auto) (0-5) /lpf U Epithel Cells (Auto) (0-5) /lpf Urine Bacteria (Auto) (Negative) Urine Osmolality (500-800) mOsm/kg Ur Random Sodium mmol/L Lyme Disease IgG Ab (Negative) Lyme Disease IgM Ab (Negative) SARS-CoV-2 (PCR) (Negative) Hepatitis A IgM Ab (NON-REACTIVE) Hep Bs Antigen (NON-REACTIVE) Hep Bs Ag Confirmation Hep B Core IgM Ab (NON-REACTIVE) Hepatitis C Ab (EIA) (NON-REACTIVE) Influenza Type A (PCR) (Neg) Influenza Type B (PCR) (Neg) RSV (RT-PCR) (Neg)
[2023-08-02] MEDS: cefTRIAXone SODIUM 2,000 MG in DEXTROSE 5 % MINI-B 50 ML IV SCH (15:42)
[2023-08-02 15:43] LABS: Quantiferon Mitogen-NIL DNR IU/mL; Quantiferon NIL DNR IU/mL; Quantiferon TB1-NIL DNR IU/mL; Quantiferon TB2-NIL DNR IU/mL
[2023-08-02 17:26] LABS: ANTI-Xa, UFH(UnfractionatedHep 0.29 IU/ml (0.3-0.7)
[2023-08-02] MEDS: SIMVASTATIN 20 MG TAB PO SCH (21:04)
[2023-08-02] MEDS ORDERED: COUGH DROP (SUGAR FREE) LOZ 24 LOZ/1 BOX BUCCAL ONE (23:16)
[2023-08-02 23:53] LABS: ANTI-Xa, UFH(UnfractionatedHep 0.35 IU/ml (0.3-0.7)
[2023-08-03] MEDS ORDERED: CIPROFLOXACIN / D5W 400 MG/200 ML BAG IV SCH ×2 (06:00)
[2023-08-03 06:12] LABS: Hematocrit (blood only) 42.7 % (37.0-47.0); Hemoglobin 14.4 g/dl (12.0-16.0); Mean Corpuscular Hemoglobin 31.6 pg (25.0-34.0); Mean Corpuscular Hgb Conc 33.7 g/dL (32.0-36.0); Mean Corpuscular Volume 93.6 fL (80.0-100.0); Mean Platelet Volume 9.4 fL (9.4-12.4); Platelet Count 334 K/uL (130-400); RDW Coefficient of Variation 12.1 % (11.5-14.5); RDW Standard Deviation 41.9 fL (36.4-46.3); Red Blood Count 4.56 M/uL (4.20-5.40); White Blood Count 18.47 K/ul (4.8-10.8)
[2023-08-03] MEDS ORDERED: LACTATED RINGER'S 1,000 ML IV SCH (06:30)
[2023-08-03 06:31] LABS: Calcium 8.4 mg/dl (8.6-10.3); Creatinine Clr Calc Pharmacy 38.5 ml/min; Est GFR (African American) 57.8 ml/min; Est GFR (Non-African American) 49.9 ml/min; Potassium 4.6 mmol/L (3.5-5.1)
[2023-08-03] MEDS ORDERED: PHENYLEPHRINE HCL 10 MG/ML VIAL ONE (06:34)
[2023-08-03] MEDS ORDERED: LIDOCAINE 2% 2 ML VIAL/AMP(20MG/ML) INFIL ONE (06:34)
[2023-08-03] MEDS ORDERED: PROPOFOL IV EMULSION 10 MG/ML 20 ML VIAL IV ONE (06:34)
[2023-08-03 06:39] LABS: Basophils # (auto) 0.16 K/uL (0.00-0.20); Basophils % (auto) 0.9 %; INR 1.5 (0.9-1.1); Immature Granulocytes # (auto) 1.09 K/uL (0.01-0.20); Immature Granulocytes % (auto) 5.9 %; Lymphocytes # (auto) 0.93 K/uL (1.20-3.40); Monocytes # (auto) 0.81 K/uL (0.11-0.59); Monocytes % (auto) 4.4 %; Neutrophils # (auto) 15.48 K/uL (1.40-6.50); Neutrophils % (auto) 83.8 %; Prothrombin Time 15.7 Seconds (9.0-12.0)
[2023-08-03] MEDS ORDERED: fentaNYL citrate PF 100 MCG/2 ML VIAL ONE (06:41)
[2023-08-03] MEDS ORDERED: BUPIVACAINE 0.5 % 5 MG/1 ML MPF 30ML VIAL ONE (06:45)
[2023-08-03] MEDS ORDERED: LIDOCAINE 1% LOCAL 20 ML VIAL ONE (06:45)
[2023-08-03] MEDS ORDERED: ONDANSETRON INJ 2 MG/ML 2 ML VIAL IV PRN (06:47)
[2023-08-03] MEDS ORDERED: ATROPINE SULFATE 0.1 MG/ML 10ML SYR IV PRN (06:47)
[2023-08-03] MEDS ORDERED: HYDROmorphone INJ 2 MG/ML SYR/VIAL IV PRN (06:47)
[2023-08-03] MEDS ORDERED: fentaNYL citrate PF 100 MCG/2 ML VIAL IV PRN (06:47)
[2023-08-03] MEDS ORDERED: ePHEDrine sulfate 50 MG/ML AMP IV PRN (06:47)
--- NOTE | 2023-08-03 06:47 | Anesthesiology Consultation ---
Date of Service August 03, 2023 Assessment & Plan ASA ASA3 Proposed Anesthesia Anesthesia Type: General Risk / Benefits Reviewed With: PT / POA / Parent / Guardian, Accepts Plan and Informed Consent Obtained History Surgery Operation Date: 08/03/23 07:00 Proposed Procedures p Bilateral Temporal Artery Biopsy - Xu Leiva MD Height/Weight Height: 5 ft 3 in Weight: 81.1 kg Allergies Allergy/AdvReac Type Severity Reaction Status Date / Time Sulfa (Sulfonamide Allergy Intermediate RASH/GI Verified 08/03/23 06:14 Antibiotics) UPSET mercury (elemental) Allergy Mild RASH Verified 08/03/23 06:14 Penicillins Allergy Mild RASH Verified 08/03/23 06:14 hydromorphone AdvReac Intermediate ACTED Verified 08/03/23 06:14 STRANGE NSAIDS (Non-Steroidal AdvReac Intermediate INTERNAL Verified 08/03/23 06:14 Anti-Inflamma BLEEDING Medications Home Medications Medication Instructions Recorded Confirmed Last Taken albuterol sulfate 90 mcg/actuation 2 puff inhalation QID PRN 03/20/21 01/04/23 Unknown aerosol inhaler Shortness Of Breath Or Wheezing allopurinol 100 mg tablet 100 mg PO QAM 03/20/21 07/29/23 01/04/23 07:00 cholecalciferol (vitamin D3) 25 25 mcg PO QAM 03/20/21 01/04/23 01/04/23 mcg (1,000 unit) capsule (Vitamin D3) diltiazem HCl 30 mg tablet 30 mg PO QID 03/20/21 07/29/23 01/04/23 07:00 (Cardizem) metoprolol tartrate 25 mg tablet 25 mg PO BID 03/20/21 07/29/23 01/04/23 07:00 simvastatin 20 mg tablet 20 mg PO Q OTHER DAY 03/20/21 07/29/23 01/02/23 warfarin 2 mg tablet See Rx Instructions .Route .COMPLEX 03/20/21 01/04/23 01/03/23 meclizine 12.5 mg tablet 12.5 mg PO Q6H PRN vertigo #10 tabs 03/23/21 07/29/23 Unknown Vitamin B12 Tab 2,500 mcg PO Q OTHER DAY 01/04/23 01/04/23 Unknown fluticasone furoate 200 1 ea inhalation DAILY #60 ea 01/08/23 07/29/23 Unknown mcg-vilanterol 25 mcg/dose inhalation powder (Breo Ellipta) furosemide 20 mg tablet (Lasix) 20 mg PO 3XWK #30 tabs 01/08/23 07/29/23 Unknown fluticasone propionate 50 2 spray intranasal DAILY 07/29/23 07/29/23 Unknown mcg/actuation nasal spray,suspension Active Medications Generic Name Dose Route Start Last Admin Trade Name Freq PRN Reason Stop Dose Admin Allopurinol 100 mg 07/30/23 09:00 08/02/23 07:49 Allopurinol 100 Mg Tab PO 08/29/23 08:59 100 mg QAM INGA Administration Diltiazem HCl 30 mg 07/29/23 14:55 07/31/23 12:59 Diltiazem Hcl 30 Mg Tab PO 08/28/23 14:54 30 mg QID INGA Administration Fluticasone/Vilanterol 1 puffs 07/30/23 09:00 08/02/23 07:50 Fluticasone/Vilanterol 200/25mcg 14 Puffs/Inhaler INH 08/29/23 08:59 1 puffs DAILY INGA Administration Ceftriaxone Sodium 2,000 mg/ 50 mls @ 100 mls/hr 07/30/23 15:15 08/02/23 16:18 Dextrose IV 08/04/23 15:14 Infused Q24H INGA Infusion Protocol Methylprednisolone 60 mg/ 0.96 mls @ 1.5 mls/min 08/01/23 09:00 08/02/23 07:49 Syringe IV 08/31/23 08:59 1.5 mls/min DAILY INGA Administration Heparin Sodium/Dextrose 25,000 units in 500 mls @ 0 mls/hr 08/02/23 10:30 08/03/23 00:27 Heparin Sodium/Dextrose IV 09/01/23 10:29 0 units/hr .Q0M INGA 0 mls/hr Titration Protocol 0 UNITS/HR Lactated Ringer's 1,000 mls @ 15 mls/hr 08/03/23 06:30 08/03/23 06:22 Lr IV 09/02/23 06:29 15 mls/hr .Q24H INGA Administration Insulin Aspart 0 units 07/31/23 22:30 08/02/23 21:04 Insulin Aspart Per Unit Charge SC 08/30/23 22:29 Not Given ACHS INGA Insulin Glargine 10 units 08/02/23 09:00 08/02/23 10:08 Lantus Per Unit Charge SQ 09/01/23 08:59 10 units DAILY INGA Administration Metoprolol Tartrate 25 mg 07/29/23 21:00 08/02/23 21:04 Metoprolol Tartrate 25 Mg Tab PO 08/28/23 20:59 25 mg BID INGA Administration Pantoprazole Sodium 40 mg 07/30/23 14:45 08/02/23 07:50 Pantoprazole 40 Mg Tab PO 08/29/23 14:44 40 mg QAM INGA Administration Simvastatin 20 mg 07/29/23 21:00 08/02/23 21:04 Simvastatin 20 Mg Tab PO 08/28/23 20:59 20 mg Q2D@2100 INGA Administration NPO Date Last Intake of Fluids: 08/02/23 Time Last Intake of Fluids: 23:00 Date Last Intake of Solids: 08/02/23 Time Last Intake of Solids: 20:00 Past Medical History Medical History Chronic diastolic heart failure COPD (chronic obstructive pulmonary disease) rarely needs inhaler Gout CAD (coronary artery disease) HTN (hypertension) Afib on warfarin daily -follows w/ Dr Lai last visit 06/2022 Exercise / Class Metabolic Activity II 4-5 Yardwork/Stairs/Walk up hill Past Family History Family History Other No family history of adverse response to anesthesia Past Surgical History Surgical History Hx of cardiac catheterization about 15 yrs ago, no stents- [facility] History of esophagogastroduodenoscopy (EGD) Hx of colonoscopy Hx of cholecystectomy Hx of hysterectomy Past Anesthesia History No Hx of Anesthesia Complications and No Family Hx of Anesthesia Complications History of PONV No Hx of PONV and No Hx of Motion Sickness Social History Smoking Status: Never smoker Do You Dip or Chew Tobacco: No Hx Alcohol Use: No Hx Substance Use: No substance use type: does not use Review of Systems denies fever/cough/ colds/ chest pain/ SOB/ TIFFANY denies TIFFANY Physical Exam Vital Signs Last Vital Signs Temp 36.6 C 08/03/23 06:00 Pulse 75 08/03/23 06:00 Resp 20 08/03/23 06:00 BP 160/97 H 08/03/23 06:32 Pulse Ox 96 08/03/23 06:00 O2 Del Method Nasal Cannula 08/03/23 06:00 O2 Flow Rate 2 08/03/23 06:00 ENMT Mouth: no TMJ abnormality and no dentition abnormality Thyromental Distance: > or= 3.5 Finger Breadths Mallampati Class: I Neck neck extension not limited Respiratory normal respiratory effort; no respiratory distress Auscultation: lungs clear to auscultation bilaterally Cardiovascular Rate/Rhythm: regular rate and regular rhythm Neurologic moves all extremities Psychiatric Orientation: alert and oriented x 3 Testing Laboratory Results 08/03/23 05:49 08/03/23 05:49 PT 15.7 Seconds (9.0-12.0) H 08/03/23 05:49 INR 1.5 (0.9-1.1) H 08/03/23 05:49 APTT 34 Seconds (21-31) H 08/02/23 07:35 Urine Color Yellow 07/31/23 15:15 Urine Appearance Clear (Clear) 07/31/23 15:15 Urine pH 5.0 (4.5-7.5) 07/31/23 15:15 Ur Specific [place] 1.012 (1.000-1.030) 07/31/23 15:15 Urine Protein Negative (Negative) 07/31/23 15:15 Urine Glucose (UA) 1+ (Negative) H 07/31/23 15:15 Urine Ketones Negative (Negative) 07/31/23 15:15 Urine Nitrite Negative (Negative) 07/31/23 15:15 Ur Leukocyte Esterase Negative (Negative) 07/31/23 15:15 Urine WBC (Auto) 10-30 /hpf (0-5) H 07/29/23 11:10 Urine RBC (Auto) 0-4 /hpf (0-4) 07/29/23 11:10 U Hyaline Cast (Auto) 1-5 /lpf (0-5) 07/29/23 11:10 U Epithel Cells (Auto) 0-5 /lpf (0-5) 07/29/23 11:10 Urine Bacteria (Auto) 2+ (Negative) H 07/29/23 11:10 07/29/23 09:50 Aerobic Blood Culture - Preliminary Blood No growth in Aerobic bottle after 48 hours. Anaerobic Blood Culture - Preliminary No growth in Anaerobic bottle after 48 hours. 07/29/23 10:16 Aerobic Blood Culture - Preliminary Blood No growth in Aerobic bottle after 48 hours. Anaerobic Blood Culture - Preliminary No growth in Anaerobic bottle after 48 hours. 07/29/23 11:10 Urine Culture - Final Urine,Straight Cath Escherichia coli 08/02/23 21:00 POC Glucose 150 H
[2023-08-03] MEDS ORDERED: CIPROFLOXACIN 400MG / 200ML D5W IV ONE (07:00)
--- NOTE | 2023-08-03 07:00 | History & Physical Bridge Note ---
Date of Service August 03, 2023 History & Physical Bridge Note I have examined the patient, reviewed the History & Physical and in the interval since the performance of the History & Physical I have noted the following changes of clinical significance: no changes noted
[2023-08-03] MEDS ORDERED: ONDANSETRON INJ 2 MG/ML 2 ML VIAL ONE (07:32)
[2023-08-03] MEDS: BACITRACIN OINT 14 GM TUBE ONE ×2 (08:15→08:48)
--- NOTE | 2023-08-03 08:51 | Post Operative Brief Note ---
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
--- NOTE | 2023-08-03 09:27 | Operative Report ---
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 Patient's attending Doctor ask me to do biopsy bilateral temporal artery. Did talk to patient about the benefit the risk and alternate procedure. I indicated the risks may include but not limited such as bleeding, infection, and worse vision. Patient understood. she signed informed consent.I answered all questions Description of Procedure Tube identified patient verify procedure. I brought patient to the OR put the patient on the supine position on the OR table. patient received a SCD on bilateral leg to prevent DVT. patient received a 400 mg Cipro IV for prophylactic antibiotic. patient received general anesthesia without difficulty. I used the marking pen marked bilateral temporal artery by uses a Doppler. the bilateral temporal area was a prepped and dripped in routine fashion. after timeout I injection of local anesthesia by using 1% lidocaine mixed with 0.5% Marcaine on the right temporal area, and make about 2 cm incision on the right temporal area, dissection subcutaneous layer and fascial layer, then I found the right temporal Artery mobilized right temporal artery, the right temporal artery was patent. the I use 4-0 Vicryl ligated 2 sides right temporal artery, I removal about a 1 cm length of right temporal artery. hemostat was obtained. I closed subcutaneous layer by using 3-0 Vicryl interrupted, close skin by using 4-0 Vicryl continuous running. we remove to left temporal area, and on the left temporal area after timeout and I make about 2 cm incision on the left temporal area, dissection subcutaneous layer open the fascial layer and we found the left temporal artery which it patent. I mobilized the left temporal artery. I ligated two sides of left temporal artery by using 4-0 Vicryl, and removed about a 1 cm length left temporal artery. hemostat was obtained. I close subcutaneous layer using 3-0 Vicryl interrupted, close skin by use of 4-0 Vicryl continuous running, put the dressing on. the patient tolerated procedure well. all instrument, needle, spong,e count correct x 2 at end of the case. patient was transferred to recovery room in stable condition. after procedure I did talk to patient and patient family member about the OR finding procedure we did. they understood. the specimen sent to pathology. I attest to the content of the Intraoperative Record and any orders documented therein. Any exceptions are noted below.
--- NOTE | 2023-08-03 09:56 | Anesthesiology Progress Note ---
Date of Service August 03, 2023 Anesthesia Post Procedure Vital Signs Vital Signs: Temp Pulse Pulse Pulse Resp BP Pulse Ox 08/03/23 09:40 36.5 C 73 20 155/79 H 95 08/03/23 09:29 80 20 163/88 H 95 08/03/23 09:20 74 18 158/92 H 90 08/03/23 09:10 76 20 155/107 H 95 08/03/23 09:00 79 17 156/92 H 95 08/03/23 08:57 36.1 C L 85 15 160/98 H 95 08/03/23 06:32 160/97 H 08/03/23 06:00 36.6 C 75 20 185/111 H 96 08/03/23 04:54 36.4 C L 77 18 171/97 H 96 08/03/23 00:34 62 08/02/23 22:27 36.3 C L 71 18 153/88 H 97 08/02/23 20:00 08/02/23 19:59 36.3 C L 88 18 152/81 H 96 08/02/23 15:55 36.4 C L 77 17 144/89 H 96 08/02/23 15:06 74 08/02/23 12:10 36.2 C L 68 17 148/95 H 96 O2 Del Method O2 Flow Rate 08/03/23 09:40 Nasal Cannula 4 08/03/23 09:29 Nasal Cannula 4 08/03/23 09:20 Nasal Cannula 2 08/03/23 09:10 Oxymask 3 08/03/23 09:00 Oxymask 6 08/03/23 08:57 Oxymask 6 08/03/23 06:32 08/03/23 06:00 Nasal Cannula 2 08/03/23 04:54 Nasal Cannula 3 08/03/23 00:34 08/02/23 22:27 Nasal Cannula 3 08/02/23 20:00 Nasal Cannula 2 08/02/23 19:59 Room Air 08/02/23 15:55 Nasal Cannula 3 08/02/23 15:06 08/02/23 12:10 Nasal Cannula 3 Pain Intensity Bilateral Lower Leg: Pain Intensity: 5 Transfer of Care Handoff Completed per policy Notes Mental Status: alert / awake / arousable and participated in evaluation Patient Amnestic to Procedure: Yes Nausea / Vomiting: adequately controlled Pain: adequately controlled Airway Patency, RR, SpO2: stable & adequate BP & HR: stable & adequate Hydration State: stable & adequate Anesthetic Complications: no major complications apparent and Pt Satisfied with anesthetic care
[2023-08-03] MEDS ORDERED: MECLIZINE 12.5 MG TAB PO PRN (10:30)
[2023-08-03] MEDS: INSULIN ASPART PER UNIT CHARGE SC SCH ×4 (10:39→21:43)
[2023-08-03] MEDS: PANTOprazole 40 MG TAB PO SCH (10:48)
[2023-08-03] MEDS: METOPROLOL TARTRATE 25 MG TAB PO SCH ×2 (10:48→21:44)
[2023-08-03] MEDS: LANTUS PER UNIT CHARGE SQ SCH (10:48)
[2023-08-03] MEDS: FLUTICASONE/VILANTEROL 200/25MCG 14 PUFFS/INHALER INH SCH (10:49)
[2023-08-03] MEDS: allopurinoL 100 MG TAB PO SCH (10:49)
[2023-08-03] MEDS: FLUTICASONE PROPIONATE NA SPR 16 GM BTL SCH (11:39)
[2023-08-03] MEDS: methylPREDNISolone 60 MG in SYRINGE 0 ML IV SCH (11:39)
[2023-08-03] MEDS: dilTIAZem HCL 30 MG TAB PO SCH ×3 (13:44→21:42)
[2023-08-03] MEDS: cefTRIAXone SODIUM 2,000 MG in DEXTROSE 5 % MINI-B 50 ML IV SCH (14:45)
--- NOTE | 2023-08-03 21:01 | Hospitalist Progress Note ---
Date of Service August 03, 2023 Assessment & Plan (1) Giant cell arteritis: Plan: Patient initially presented with general feeling of chills, unwellness, and diffuse muscle aches. Initially denied vision change but notes that she did have some slight double vision which has not changed in the last 2 weeks and has poor acuity at baseline, but no field cuts. 1 week of tender swollen inflamed temporal artery see photo in admitting H&P Age > 50, elevated ESR and CRP, with elevated leukocytosis and Pro-Wolfgang (this can be elevated and vasculitis) Discussed with desiree/Dr. Piedra on admission. Agree w/ treatment and high dose steroids. Even with steroids biopsy with good yield out up to 2 to 4 weeks on steroids; agrees with starting treatment empirically with high-dose due to concern for visual change and getting biopsy when able. Temporal CD US is not available Methylprednisolone 1 g x 3 days, then 60 mg daily Steroids as noted, hep B/hep C/QuantiFERON ordered for rheumatology in case Actemra is pursued. Appreciate recommendation Will need rheumatology follow-up upon discharge. Completed 1g solumedrol x3 days --> now on 60mg daily. Improved clinically. Taper as follows: Prednisone 60 mg daily for 1 week, decrease by 10 mg weekly down to 20 mg, then decrease by 2.5 mg/week until 10 mg after which decrease by 1 mg/week -Surgery consulted for temporal artery biopsy, bilateral to improve sensitivity, anticipated to be complete by 08/03 then can resume warfarin with short bridge if needed and d/c Patient has been hyperglycemic while on steroids,Previous A1C 5.8%. No home antiglycemics. 10 units of long-acting insulin added to sliding scale. Patient is now status post temporal artery biopsy. Patient may benefit from switching to a DOAC. (2) Supratherapeutic INR: Plan: - INR > 10 on admit - No bleeding on admit - Vitamin K given 5mg -Follow clinically for signs of bleeding -In total patient received vitamin K 5 x 1, and then subsequently 2.5 x 1 for improved but subsequently uptrending INR. Has downtrended to 1.8. Patient bridged to warfarin gtt. Surgery consulted for biopsy which is pending (3) Hyponatremia: Plan: 125, asymptomatic 07/31 1235, near normalized 08/02 Urine studies suggest GI loss, tea-toast diet, reduced PO intake as she feels her volume is down from usual Urine Na/osm repeated as she is neither significant hyper or hypovolemic on exam (4) Afib: Plan: EKG A-fib rate controlled without acute ischemic change Troponin mildly elevated, down trended suspect stress Continue metoprolol Warfarin/anticoagulation as noted (5) HTN (hypertension): Plan: Hold diltiazem, hold parameters mean this and metoprolol was being skipped intermittently anyway Continue metoprolol Holding furosemide (6) CAD (coronary artery disease): Plan: Troponin as noted, suspected demand no acute ischemic changes No chest pain with exertion, patient denies recent chest pain with exertion or at rest (7) Acute UTI (urinary tract infection): Plan: Urine culture with E. coli resistant to ampicillin/Unasyn Treated in setting of non-specific symptoms and high dose steroids - Continue ceftriaxone. Course complete 08/03 Patient does have a mild leukocytosis and with a immature granulocyte fraction on 08/02. Remains afebrile without infectious symptoms and is covered with Rocephin (8) Chronic respiratory failure with hypoxia: Plan: On baseline 2LPM O2 No acute finding on CXR Plan DVT PPx: Anticoagulated Diet: HH, NPO 0000 Dispo: M/T Code: Full Code Admission and Anticipated Discharge Date Admission Date: July 29, 2023 Subjective Patient reports no new symptoms. Review of Systems Review of Systems: All systems reviewed & are unremarkable except as noted in HPI & below Physical Exam Physical Exam: General: A&Ox3. NAD. Cooperative. HEENT: Atraumatic, normocephalic. Pulm: CTAB A&P. -wheezes, -rales, -rhonchi. Symmetrical chest rise. No increased work of breathing. No respiratory distress. Cardiac: RRR, -mrg. Radial pulses intact and symmetrical. Abdominal: Nontender, nondistended, soft. BS present. Results & Data Results & Data Vital Signs (Past 12 Hours) Vital Signs Temp Pulse Pulse Resp BP Pulse Ox O2 Del Method 08/03/23 19:23 36.5 C 72 18 149/86 H 95 Nasal Cannula 08/03/23 16:53 75 08/03/23 15:51 36.5 C 68 20 134/83 94 Nasal Cannula 08/03/23 11:58 Nasal Cannula 08/03/23 11:42 36.4 C L 87 18 138/82 94 Nasal Cannula 08/03/23 10:43 78 08/03/23 10:43 36.4 C L 79 19 136/87 94 Nasal Cannula 08/03/23 10:27 36.5 C 85 17 147/82 H 95 Nasal Cannula 08/03/23 10:10 73 21 153/77 H 95 Nasal Cannula 08/03/23 10:00 78 18 145/83 H 94 Nasal Cannula 08/03/23 09:50 73 20 159/80 H 95 Nasal Cannula 08/03/23 09:40 36.5 C 73 20 155/79 H 95 Nasal Cannula 08/03/23 09:29 80 20 163/88 H 95 Nasal Cannula 08/03/23 09:20 74 18 158/92 H 90 Nasal Cannula 08/03/23 09:10 76 20 155/107 H 95 Oxymask O2 Flow Rate 08/03/23 19:23 2 08/03/23 16:53 08/03/23 15:51 2 08/03/23 11:58 2 08/03/23 11:42 4 08/03/23 10:43 08/03/23 10:43 2 08/03/23 10:27 4 08/03/23 10:10 4 08/03/23 10:00 4 08/03/23 09:50 4 08/03/23 09:40 4 08/03/23 09:29 4 08/03/23 09:20 2 08/03/23 09:10 3 PG Care Time/CCT Total # of Minutes Spent Total Time Spent with Patient: Total time spent is greater than 50% in coordination of care (as documented) at patient's floor/unit and/or counseling patient: Coding Level of Care Code 34110 SUB INP/OBS CARE 2MIN Diagnoses Giant cell arteritis M31.6 Supratherapeutic INR R79.1 Hyponatremia E87.1 Afib I48.91 HTN (hypertension) I10 Hypertension type: unspecified CAD (coronary artery disease) I25.10 Acute UTI (urinary tract infection) N39.0 Chronic respiratory failure with hypoxia J96.11 (5) HTN (hypertension) Hypertension type: unspecified Qualified Code(s): I10 - Essential (primary) hypertension
[2023-08-04 06:33] LABS: Basophils # (auto) 0.12 K/uL (0.00-0.20); Basophils % (auto) 0.7 %; Hematocrit (blood only) 42.7 % (37.0-47.0); Immature Granulocytes # (auto) 0.81 K/uL (0.01-0.20); Lymphocytes # (auto) 1.03 K/uL (1.20-3.40); Lymphocytes % (auto) 6.4 %; Mean Corpuscular Hemoglobin 32.5 pg (25.0-34.0); Mean Corpuscular Hgb Conc 35.1 g/dL (32.0-36.0); Mean Corpuscular Volume 92.6 fL (80.0-100.0); Mean Platelet Volume 9.4 fL (9.4-12.4); Monocytes # (auto) 0.78 K/uL (0.11-0.59); Monocytes % (auto) 4.8 %; Neutrophils % (auto) 83.1 %; Platelet Count 306 K/uL (130-400); RDW Coefficient of Variation 12.4 % (11.5-14.5); RDW Standard Deviation 42.5 fL (36.4-46.3); Red Blood Count 4.61 M/uL (4.20-5.40); White Blood Count 16.14 K/ul (4.8-10.8)
[2023-08-04 06:59] LABS: BUN Creatinine Ratio 37.5 (10-20); C Reactive Protein 2.41 mg/dl (0-0.5); Calcium 8.5 mg/dl (8.6-10.3); Est GFR (African American) 60.8 ml/min; Est GFR (Non-African American) 52.4 ml/min; Potassium 5.3 mmol/L (3.5-5.1)
[2023-08-04 07:20] LABS: INR 1.4 (0.9-1.1); Prothrombin Time 14.8 Seconds (9.0-12.0)
[2023-08-04] MEDS ORDERED: FUROSEMIDE 20 MG TAB PO SCH (09:00)
[2023-08-04] MEDS: dilTIAZem HCL 30 MG TAB PO SCH ×3 (09:17→16:35)
[2023-08-04] MEDS: FLUTICASONE PROPIONATE NA SPR 16 GM BTL SCH (09:17)
[2023-08-04] MEDS: INSULIN ASPART PER UNIT CHARGE SC SCH ×4 (09:29→20:51)
[2023-08-04] MEDS: LANTUS PER UNIT CHARGE SQ SCH (09:29)
[2023-08-04] MEDS: PANTOprazole 40 MG TAB PO SCH (09:30)
[2023-08-04] MEDS: FLUTICASONE/VILANTEROL 200/25MCG 14 PUFFS/INHALER INH SCH (09:30)
[2023-08-04] MEDS: methylPREDNISolone 60 MG in SYRINGE 0 ML IV SCH (09:30)
[2023-08-04] MEDS: allopurinoL 100 MG TAB PO SCH (09:30)
--- NOTE | 2023-08-04 10:21 | Surgery Progress Note ---
Date of Service August 04, 2023 Assessment & Plan (1) Giant cell arteritis: Plan: Assessment: Patient is a 87 years old female prepped recent past medical history chronic respiratory failure, CAD, hypertension, A-fib, right heart failure, pulmonary hypertension, on Coumadin. Patient was admitted to hospital for possible giant cell arteritis. Patient said he had a couple week history we will itching on the bilateral temporal area and sweats at night, double vision. Patient denies fever or chills. No chest pain. I was asked to do biopsy of bilateral temporal artery or to rule out giant cell arteritis. Plan: I recommend to do biopsy of provide her temporal arteries under the local and the sedation. I did talk to patient about the benefits the risk and alternate of the procedure. He indicated the risks may include but not limited such as bleeding, infection, worse vision. He understood. She will agree to proceed to the surgery. She signed informed consent. I answered all questions 08/04/2023 10:19 AM F/U S/P biopsy b/l temporal artery, POD 1 pt si doing fine. the post op care instruction was given, keep the dressing on for 4 days. she cant take a shower on 08/08/2023 resume coumadin tonight. f/u me 2 weeks, sign off, please call with questions or concerns. thanks. Admission and Anticipated Discharge Date Admission Date: July 29, 2023 Subjective F/U S/P biopsy bilateral temporal artery, POD 1 pt is doing fine, no fever. Review of Systems Constitutional: as per Subjective / HPI Eyes: Double vision Respiratory: Respiratory failure Cardiovascular: Additional Comments: CAD, HTN, A-fib, right heart failure. Gastrointestinal: as per Subjective / HPI Neurologic: as per Subjective / HPI Psychiatric: as per Subjective / HPI Endocrine: as per Subjective / HPI Hematologic / Lymphatic: as per Subjective / HPI on coumadin Physical Exam Constitutional: WD/WN, vitals as above Eyes: PERRL, conjunctivae normal, anicteric sclerae Neck: trachea midline, no thyromegaly Respiratory: normal respiratory effort, lungs clear to auscultation Cardiovascular: Rate/Rhythm: + irregularly irregular Gastrointestinal (Abdomen): normal bowel sounds, soft, nontender, no hepatosplenomegaly Musculoskeletal: no cyanosis or clubbing, extremities motor strength 5/5 Skin: the incisions intact, no active bleeding. Neurologic: patellar DTR's 2+ bilat, sensation intact Psychiatric: A+Ox3, euthymic affect Results & Data Vital Signs (Past 12 Hours) Vital Signs Temp Pulse Pulse Resp BP Pulse Ox O2 Del Method 08/04/23 08:03 70 08/04/23 07:30 36.3 C L 74 18 158/93 H 92 Nasal Cannula 08/04/23 04:49 36.4 C L 71 16 172/96 H 97 Nasal Cannula 08/04/23 00:49 36.8 C 63 20 146/88 H 96 Nasal Cannula 08/03/23 22:35 Nasal Cannula O2 Flow Rate 08/04/23 08:03 08/04/23 07:30 2 08/04/23 04:49 2 08/04/23 00:49 2 08/03/23 22:35 2 Laboratory Results Abnormal lab results 08/03/23 08/03/23 08/03/23 Range/Units 10:47 11:33 17:05 WBC (4.8-10.8) K/ul Neut # (Auto) (1.40-6.50) K/uL Lymph # (Auto) (1.20-3.40) K/uL [place] # (Auto) (0.11-0.59) K/uL Immature Gran # (Auto) (0.01-0.20) K/uL PT (9.0-12.0) Seconds INR (0.9-1.1) Sodium (136-145) mmol/L Potassium (3.5-5.1) mmol/L Anion Gap (3-11) BUN (6-23) mg/dl BUN/Creatinine Ratio (10-20) Glucose (70-99(Fasting)) mg/dl POC Glucose 121 H 116 H 127 H (70-99) mg/dl Calcium (8.6-10.3) mg/dl C-Reactive Protein (0-0.5) mg/dl 08/03/23 08/04/23 08/04/23 Range/Units 20:26 06:04 07:45 WBC 16.14 H (4.8-10.8) K/ul Neut # (Auto) 13.40 H (1.40-6.50) K/uL Lymph # (Auto) 1.03 L (1.20-3.40) K/uL [place] # (Auto) 0.78 H (0.11-0.59) K/uL Immature Gran # (Auto) 0.81 H (0.01-0.20) K/uL PT 14.8 H (9.0-12.0) Seconds INR 1.4 H (0.9-1.1) Sodium 134 L (136-145) mmol/L Potassium 5.3 H (3.5-5.1) mmol/L Anion Gap 2 L (3-11) BUN 36 H (6-23) mg/dl BUN/Creatinine Ratio 37.5 H (10-20) Glucose 126 H (70-99(Fasting)) mg/dl POC Glucose 138 H 108 H (70-99) mg/dl Calcium 8.5 L (8.6-10.3) mg/dl C-Reactive Protein 2.41 H (0-0.5) mg/dl
[2023-08-04] MEDS: METOPROLOL TARTRATE 25 MG TAB PO SCH ×2 (11:08→20:08)
[2023-08-04] MEDS: WARFARIN SOD 2 MG TAB PO SCH (18:21)
[2023-08-04] MEDS: SIMVASTATIN 20 MG TAB PO SCH (20:08)
--- NOTE | 2023-08-04 21:45 | Hospitalist Progress Note ---
Date of Service August 04, 2023 Assessment & Plan (1) Giant cell arteritis: Plan: Patient initially presented with general feeling of chills, unwellness, and diffuse muscle aches. Initially denied vision change but notes that she did have some slight double vision which has not changed in the last 2 weeks and has poor acuity at baseline, but no field cuts. 1 week of tender swollen inflamed temporal artery see photo in admitting H&P Age > 50, elevated ESR and CRP, with elevated leukocytosis and Pro-Wolfgang (this can be elevated and vasculitis) Discussed with desiree/Dr. Piedra on admission. Agree w/ treatment and high dose steroids. Even with steroids biopsy with good yield out up to 2 to 4 weeks on steroids; agrees with starting treatment empirically with high-dose due to concern for visual change and getting biopsy when able. Temporal CD US is not available Methylprednisolone 1 g x 3 days, then 60 mg daily Steroids as noted, hep B/hep C/QuantiFERON ordered for rheumatology in case Actemra is pursued. Appreciate recommendation Will need rheumatology follow-up upon discharge. Completed 1g solumedrol x3 days --> now on 60mg daily. Improved clinically. Taper as follows: Prednisone 60 mg daily for 1 week, decrease by 10 mg weekly down to 20 mg, then decrease by 2.5 mg/week until 10 mg after which decrease by 1 mg/week -Surgery consulted for temporal artery biopsy, bilateral to improve sensitivity, anticipated to be complete by 08/03 then can resume warfarin with short bridge if needed and d/c Patient has been hyperglycemic while on steroids,Previous A1C 5.8%. No home antiglycemics. 10 units of long-acting insulin added to sliding scale. Patient is now status post temporal artery biopsy. Patient may benefit from switching to a DOAC. However patient does not want to switch from warfarin. (2) Supratherapeutic INR: Plan: - INR > 10 on admit - No bleeding on admit - Vitamin K given 5mg -Follow clinically for signs of bleeding -In total patient received vitamin K 5 x 1, and then subsequently 2.5 x 1 for improved but subsequently uptrending INR. Has downtrended to 1.8. Patient bridged to warfarin gtt. Surgery consulted for biopsy which is pending (3) Hyponatremia: Plan: 125, asymptomatic 07/31 1235, near normalized 08/02 resolved. (4) Afib: Plan: EKG A-fib rate controlled without acute ischemic change Troponin mildly elevated, down trended suspect stress Continue metoprolol Warfarin/anticoagulation as noted (5) HTN (hypertension): Plan: Hold diltiazem, hold parameters mean this and metoprolol was being skipped inter mittently anyway Continue metoprolol Holding furosemide (6) CAD (coronary artery disease): Plan: Troponin as noted, suspected demand no acute ischemic changes No chest pain with exertion, patient denies recent chest pain with exertion or at rest (7) Acute UTI (urinary tract infection): Plan: Urine culture with E. coli resistant to ampicillin/Unasyn Treated in setting of non-specific symptoms and high dose steroids - Continue ceftriaxone. Course complete 08/03 Patient does have a mild leukocytosis and with a immature granulocyte fraction on 08/02. Remains afebrile without infectious symptoms and is covered with Rocephin (8) Chronic respiratory failure with hypoxia: Plan: On baseline 2LPM O2 No acute finding on CXR Plan DVT PPx: Anticoagulated Diet: HH, NPO 0000 Dispo: M/T Code: Full Code Admission and Anticipated Discharge Date Admission Date: July 29, 2023 Subjective 87 yo female reports no new symptoms. Review of Systems Review of Systems: All systems reviewed & are unremarkable except as noted in HPI & below Physical Exam Physical Exam: General: A&Ox3. NAD. Cooperative. HEENT: Atraumatic, normocephalic. Pulm: CTAB A&P. -wheezes, -rales, -rhonchi. Symmetrical chest rise. No increased work of breathing. No respiratory distress. Cardiac: RRR, -mrg. Radial pulses intact and symmetrical. Abdominal: Nontender, nondistended, soft. BS present. Results & Data Results & Data Vital Signs (Past 12 Hours) Vital Signs Temp Pulse Pulse Resp BP Pulse Ox O2 Del Method 08/04/23 19:00 36.5 C 78 18 130/87 98 Nasal Cannula 08/04/23 15:31 36.4 C L 76 16 138/86 97 Nasal Cannula 08/04/23 14:51 82 08/04/23 11:41 36.3 C L 87 16 142/85 H 96 Nasal Cannula 08/04/23 10:16 Nasal Cannula O2 Flow Rate 08/04/23 19:00 2 08/04/23 15:31 2 08/04/23 14:51 08/04/23 11:41 2 08/04/23 10:16 2 PG Care Time/CCT Total # of Minutes Spent Total Time Spent with Patient: Total time spent is greater than 50% in coordination of care (as documented) at patient's floor/unit and/or counseling patient: Coding Level of Care Code 67963 SUB INP/OBS CARE MIN Diagnoses Giant cell arteritis M31.6 Supratherapeutic INR R79.1 Hyponatremia E87.1 Afib I48.91 HTN (hypertension) I10 Hypertension type: unspecified CAD (coronary artery disease) I25.10 Acute UTI (urinary tract infection) N39.0 Chronic respiratory failure with hypoxia J96.11 (5) HTN (hypertension) Hypertension type: unspecified Qualified Code(s): I10 - Essential (primary) hypertension
[2023-08-05 07:46] LABS: Hematocrit (blood only) 44.2 % (37.0-47.0); Mean Corpuscular Hemoglobin 31.8 pg (25.0-34.0); Mean Corpuscular Hgb Conc 33.9 g/dL (32.0-36.0); Mean Corpuscular Volume 93.8 fL (80.0-100.0); Mean Platelet Volume 9.2 fL (9.4-12.4); Platelet Count 301 K/uL (130-400); RDW Coefficient of Variation 12.4 % (11.5-14.5); RDW Standard Deviation 42.9 fL (36.4-46.3); Red Blood Count 4.71 M/uL (4.20-5.40); White Blood Count 18.91 K/ul (4.8-10.8)
[2023-08-05 08:03] LABS: BUN Creatinine Ratio 44.2 (10-20); Calcium 8.2 mg/dl (8.6-10.3); Creatinine Clr Calc Pharmacy 44.3 ml/min; Est GFR (African American) 69.4 ml/min; Est GFR (Non-African American) 59.9 ml/min; Potassium 4.5 mmol/L (3.5-5.1)
[2023-08-05 08:09] LABS: INR 1.3 (0.9-1.1); Prothrombin Time 14.3 Seconds (9.0-12.0)
[2023-08-05] MEDS: METOPROLOL TARTRATE 25 MG TAB PO SCH (09:34)
[2023-08-05] MEDS: methylPREDNISolone 60 MG in SYRINGE 0 ML IV SCH (09:34)
[2023-08-05] MEDS: allopurinoL 100 MG TAB PO SCH (09:34)
[2023-08-05] MEDS: PANTOprazole 40 MG TAB PO SCH (09:34)
[2023-08-05] MEDS: FLUTICASONE PROPIONATE NA SPR 16 GM BTL SCH (09:35)
[2023-08-05] MEDS: FLUTICASONE/VILANTEROL 200/25MCG 14 PUFFS/INHALER INH SCH (09:36)
[2023-08-05] MEDS: INSULIN ASPART PER UNIT CHARGE SC SCH ×2 (09:40→13:29)
[2023-08-05] MEDS: LANTUS PER UNIT CHARGE SQ SCH (09:41)
--- NOTE | 2023-08-05 14:44 | Discharge Summary ---
Date of Service August 05, 2023 Admission HPI Per Admitting Provider warfarin 3mg daily. NO dose changes in the last few weeks, stable last 3-4 monthly checks Denies fevers, but has had some chills at night and has woken up feeling slightly sweaty a few times without shaking chills or rigors Has some swelling of blood vessles on the forehead for a few weeks, a little tender with being achy allover in the last week. Initially denies headache and vision change, on further history clarifies that she does have some aching at her temples and also noticed that her vision has been a little more blurry with maybe a little diagonal double vision for the last 2 weeks but this has not changed or further worsened or improved in the last 2 weeks. Patient notes that she was going to follow-up to have her eyeglasses checked but had not yet done this Feels very weak last few days. Took some ibuprofen which helped but has woken up with some sweats once or twice Baseline has some shortness of breath with exertion, but no change. No cough. No sputum production. Has had 1 UTI previously. Has dysuria at [facility] ttime. She is incontinent at baseline, the past week she 'got a little scared' because she had a dry pad for a while and still felt like she had to go but was going a little less. No burning, no abdominal pain. Has been achy all over for the last week. Endorses diffuse myalgias in the last week, no leg/arm/joint swelling. Eating OK, has not had much to drink and is very thirsty. No diarrhea. +constipation, last BM x3 days. Denies history of autoimmune disease in self or family. No rashes or tick bites to her knowledge No chest pain or chest pressure. No chest pain on exertion. NO chest pain currently. Medical History: Reviewed Medications: Reviewed Surgical History: Reviewed Family history: Reviewed Allergies: Reviewed Social History: No tobacco product use. No etoh use. Code Status: Surrogate JUSTYNA Kapoor (theodore). Full Code Principal Diagnosis Giant Cell Arteritis Discharge Exam General: A&Ox3. NAD. Cooperative. HEENT: Atraumatic, normocephalic. Pulm: CTAB A&P. -wheezes, -rales, -rhonchi. Symmetrical chest rise. No increased work of breathing. No respiratory distress. Cardiac: RRR, -mrg. Radial pulses intact and symmetrical. Abdominal: Nontender, nondistended, soft. BS present. Discharge Data Allergies Allergy/AdvReac Type Severity Reaction Status Date / Time Sulfa (Sulfonamide Allergy Intermediate RASH/GI Verified 08/03/23 06:14 Antibiotics) UPSET mercury (elemental) Allergy Mild RASH Verified 08/03/23 06:14 Penicillins Allergy Mild RASH Verified 08/03/23 06:14 hydromorphone AdvReac Intermediate ACTED Verified 08/03/23 06:14 STRANGE NSAIDS (Non-Steroidal AdvReac Intermediate INTERNAL Verified 08/03/23 06:14 Anti-Inflamma BLEEDING Consultations 07/29/23 11:49 ED Decision to Admit Stat 08/02/23 08:40 Consult General Surgery Routine Procedures Performed Operation Date: 08/03/23 07:00 Actual Procedures p Bilateral Temporal Artery Biopsy(Bilateral) - Xu Leiva MD Hospital Course (1) Giant cell arteritis: Patient initially presented with general feeling of chills, unwellness, and diffuse muscle aches. Initially denied vision change but notes that she did have some slight double vision which has not changed in the last 2 weeks and has poor acuity at baseline, but no field cuts. 1 week of tender swollen inflamed temporal artery see photo in admitting H&P Age > 50, elevated ESR and CRP, with elevated leukocytosis and Pro-Wolfgang (this can be elevated and vasculitis) Discussed with desiree/Dr. Piedra on admission. Agree w/ treatment and high dose steroids. Even with steroids biopsy with good yield out up to 2 to 4 weeks on steroids; agrees with starting treatment empirically with high-dose due to concern for visual change and getting biopsy when able. Temporal CD US is not available Methylprednisolone 1 g x 3 days, then 60 mg daily Steroids as noted, hep B/hep C/QuantiFERON ordered for rheumatology in case Actemra is pursued. Appreciate recommendation Will need rheumatology follow-up upon discharge. Completed 1g solumedrol x3 days --> now on 60mg daily. Improved clinically. Taper as follows: Prednisone 60 mg daily for 1 week, decrease by 10 mg weekly down to 20 mg, then decrease by 2.5 mg/week until 10 mg after which decrease by 1 mg/week -Surgery consulted for temporal artery biopsy, bilateral to improve sensitivity, anticipated to be complete by 08/03 then can resume warfarin with short bridge if needed and d/c Patient has been hyperglycemic while on steroids,Previous A1C 5.8%. No home antiglycemics. 10 units of long-acting insulin added to sliding scale whjile he re. Will trail metformin as an outpatient. Patient is now status post temporal artery biopsy. Patient may benefit from switching to a DOAC. However patient does not want to switch from warfarin at this moment. Will defer to PCP, as risk of bleeding is much lower and no need for testing. (2) Supratherapeutic INR: - INR > 10 on admit - No bleeding on admit - Vitamin K given 5mg (3) Hyponatremia: 125, asymptomatic 07/31 1235, near normalized 08/02 resolved. (4) Afib: EKG A-fib rate controlled without acute ischemic change Troponin mildly elevated, down trended suspect stress Continue metoprolol Warfarin/anticoagulation as noted (5) HTN (hypertension): Hold diltiazem, hold parameters mean this and metoprolol was being skipped intermittently anyway Continue metoprolol Holding furosemide, resume furosemide at discharge. (6) CAD (coronary artery disease): Troponin as noted, suspected demand no acute ischemic changes No chest pain with exertion, patient denies recent chest pain with exertion or at rest (7) Acute UTI (urinary tract infection): Urine culture with E. coli resistant to ampicillin/Unasyn Treated in setting of non-specific symptoms and high dose steroids - Continue ceftriaxone. Course complete 08/03 Patient does have a mild leukocytosis and with a immature granulocyte fraction on 08/02. Remains afebrile without infectious symptoms and is covered with Rocephin (8) Chronic respiratory failure with hypoxia: On baseline 2LPM O2 No acute finding on CXR Total Time Total Time Spent Total Time Spent (In Minutes): 32 Discharge Plan Discharge Items Patient Disposition: Home - Self-Care Reason For Visit: GCA, TROP Discharge Diagnosis: GCA Activity: Resume your previous activity Non-emergency contact: Primary Care Provider Call non-emergency contact if: you have any medication questions Follow-up/Referrals: Eric Rosa MD [Primary Care Provider] - Diet: Regular Addtl Attending Provider Instructions: Prednisone 60 mg daily for 1 week, decrease by 10 mg weekly down to 20 mg, then decrease by 2.5 mg/week until 10 mg after which decrease by 1 mg/week Will need a followup with your PCP in 1-2 weeks. WIll need a followup with Rheumatology within 1 month. Pending Studies at Discharge: No Stand-Alone Forms: [facility], Smoking Cessation Medications and DC Order Prescriptions: New pantoprazole 40 mg Tablet,Delayed Release (Dr/Ec) 40 mg PO QAM Qty: 30 0RF prednisone 10 mg tablet See Rx Instructions .ROUTE .COMPLEX Qty: 140 0RF Rx Instructions: Take 6 tablets once daily by mouth for 7 days then 5 tablets by mouth for 7 days. then 4 tablets by mouth for 7 days then 3 tablets by nouth for 7 days then 2 tablets by mouth for 7 days metformin 500 mg tablet extended release 24 hr 500 mg PO PM Qty: 30 0RF Continued allopurinol 100 mg tablet 100 mg PO QAM simvastatin 20 mg tablet 20 mg PO Q OTHER DAY Rx Instructions: pm warfarin 2 mg tablet See Rx Instructions .ROUTE .COMPLEX Rx Instructions: pharmacy didnt have fill history 3 mg; MON, WED, FRI; 2 MG ON OTHER DAYS albuterol sulfate 90 mcg/actuation HFA aerosol inhaler 2 puff INHALATION QID PRN (Reason: Shortness Of Breath Or Wheezing) Rx Instructions: not on file with pharmacy cholecalciferol (vitamin D3) [Vitamin D3] 25 mcg (1,000 unit) Capsule 25 mcg PO QAM Rx Instructions: otc metoprolol tartrate 25 mg tablet 25 mg PO BID meclizine 12.5 mg tablet 12.5 mg PO Q6H PRN (Reason: vertigo) Qty: 10 0RF Vitamin B12 Tab 2,500 mcg PO Q OTHER DAY Rx Instructions: otc fluticasone furoate-vilanterol [Breo Ellipta] 200-25 mcg/dose Blister With Device 1 ea inhalation DAILY Qty: 60 2RF furosemide [Lasix] 20 mg tablet 20 mg PO 3XWK Qty: 30 0RF fluticasone propionate [Flonase] 50 mcg/actuation [place],Suspension 2 spray INTRANASAL DAILY Discontinued diltiazem HCl [Cardizem] 30 mg tablet 30 mg PO QID Discharge Orders: Discharge Order (Routine); Ordered 08/05/23 Ordered By: Arnol Wilson Admission Data Admit Date/Time: 07/29/23 13:30 Attending Provider: Arnol Wilson Admit Provider: Elian Stephens Primary Care Provider: Eric Rosa Other Providers: Elian Stephens; Xu Leiva; [facility] Coding Level of Care Code 01476 INP/OBS DISCH >30 MIN Diagnoses Giant cell arteritis M31.6 Supratherapeutic INR R79.1 Hyponatremia E87.1 Afib I48.91 HTN (hypertension) I10 Hypertension type: unspecified CAD (coronary artery disease) I25.10 Acute UTI (urinary tract infection) N39.0 Chronic respiratory failure with hypoxia J96.11
[2023-08-05] MEDS: WARFARIN SOD 2 MG TAB PO SCH (15:51)
[2023-08-08 12:57] LABS: Quantiferon Mitogen-NIL 0.06 IU/mL; Quantiferon NIL 0.05 IU/mL; Quantiferon TB Gold Plus INDETERMINATE (NEGATIVE); Quantiferon TB1-NIL <0.00 IU/mL; Quantiferon TB2-NIL <0.00 IU/mL
== END 2023-08-05 16:50 | disposition home health service (06) | DRG 516 ==
LOC: ED 09:19 → EDINP 13:30 → SUATTDRO 13:30 → 2N 14:59